=== PATIENT | female | born 1980 | race Caucasian/White ===

== ENCOUNTER 2016-12-22 19:29 | Emergency (ER) | payer SELFPAY ==
[~2016-12-22] VITALS: Ht 175.3 cm; Wt 86.0 kg
[~2016-12-22 19:29] MED LIST: HYDR-3533 PO; IBUP400 PO
[2016-12-22 19:33] VITALS: BP 132/81; PULSE 80; RESP 20; TEMP 98.2; O2SAT 100
--- NOTE | 2016-12-22 19:39 | PD ---
Physical Exam Time Seen by Provider: 19:34 Narrative 36yo F c/o RLQ and pain for weeks. Hx of endometrioses throughout abdomen. Hx of appendectomy and 12" bowel resection secondary to endometriosis. +N w/o vomiting. Has not had BM in 1 week. Jp fever. Hx of tubal ligation. Patient seen in triage. VS reviewed. Awaiting bed placement. MDM Supervised Visit with ABDOULAYE: Petra Nieto Dec 22, 2016 19:39
[2016-12-22] MEDS ORDERED: SODIUM CHLOR 0.9% 1000 ML INJ 1,000 ML IV SCH (20:14)
[2016-12-22] MEDS ORDERED: MORPHINE SULFATE 4 MG/ML INJ IV PUSH ONE ×2 (20:15→23:00)
[2016-12-22] MEDS ORDERED: SODIUM CHLORIDE 0.9% FLUSH 10 ML FLUSH IV FLUSH PRN (20:15)
[2016-12-22] MEDS ORDERED: ONDANSETRON HCL 4 MG/2 ML VIAL IVP ONE (20:15)
[2016-12-22] MEDS ORDERED: DIATRIZOATE MEGLUM/DIATRIZOATE SOD 9 ML CUP ONE (20:29)
--- NOTE | 2016-12-22 20:30 | PD ---
HPI Chief Complaint: Abdominal Pain Time Seen by Provider: 20:28 Travel History International Travel<30 days: No Contact w/Intl Traveler<30days: No Traveled to known affect area: No History of Present Illness HPI 36-year-old female with PMH of endometriosis, bowel resection, appendectomy, tubal ligation presents to the ED for evaluation of 1 week history of cramping abdominal pain. Abrupt onset, last in 3-5 seconds before spontaneously resolving. She endorses associated nausea. Patient reports reduced stool volume over the last week. She states she's passed several small, hard stools. No alleviating or exacerbating factors reported. She denies fever, chills, vomiting, melena or hematochezia. States last menstrual period approximately one week ago. Endorses "heavy flow" 5 days. Also complains of "metallic" vaginal odor. Denies dysuria or vaginal discharge. Also complains of dyspareunia x ~1 week. PFSH Past Medical History Bipolar Disorder: Yes Depression: Yes Diminished Hearing: No Reproductive: Yes (ENDOMETRIOSIS) Immunizations Current: Yes Tetanus Vaccination: > 5 Years ?: Not : 4 Para: 3 Miscarriage: 1 Tubal Ligation: Yes Past Surgical History Abdominal Surgery: Yes (BOWEL RESECTION) Appendectomy: Yes Section: Yes (X3) Social History Alcohol Use: No Tobacco Use: Yes (1PPD) Substance Use: No Allergies-Medications (Allergen,Severity, Reaction): Coded Allergies: Codeine (Verified Allergy, Severe, 12/22/16) "I GET REALLY HYPER" Penicillin (Verified Allergy, Severe, 12/22/16) "I GET REALLY HYPER" Phenergan (Verified Allergy, Severe, 12/22/16) "I GET REALLY HYPER" Reported Meds & Prescriptions Reported Meds & Active Scripts Active Metrogel Vaginal Gel (Metronidazole Vaginal Gel) 0.75 % Gel 1 Appl VAGINAL HS 5 Days Anaprox DS (Naproxen Sodium) 550 Mg Tab 550 Mg PO Q12HR PRN Review of Systems Except as stated in HPI: all other systems reviewed are Neg Physical Exam Narrative GENERAL: Well-nourished, well-developed obese white female in no acute distress. SKIN: Focused skin assessment warm/dry. HEAD: Normocephalic. EYES: No scleral icterus. No injection or drainage. NECK: Supple, trachea midline. No JVD or lymphadenopathy. CARDIOVASCULAR: Regular rate and rhythm without murmurs, gallops, or rubs. 2+ DP and radial pulses bilaterally. RESPIRATORY: Breath sounds clear and equal bilaterally. No accessory muscle use. GASTROINTESTINAL: Abdomen soft, nondistended. Tender to palpation in the right lower quadrant. Positive suprapubic tenderness. Hypoactive bowel sounds. GENITOURINARY: Normal external genitalia without lesions or erythema. Vaginal vault without blood. Scant amount of pale yellow drainage. Unable to visualize cervical os secondary to the patient's discomfort. No cervical motion tenderness. Uterus nontender and nonenlarged. Bilateral adnexa nontender without masses. Patient states vaginal exam worsens her abdominal pain. MUSCULOSKELETAL: No cyanosis, or edema. BACK: Nontender without obvious deformity. No CVA tenderness. Data Data Last Documented VS Vital Signs Date Time Temp Pulse Resp B/P Pulse Ox O2 Delivery O2 Flow Rate FiO2 12/23/16 00:08 99 Room Air 12/22/16 22:55 100 20 115/65 12/22/16 19:33 98.2 Orders Complete Blood Count With Diff (12/22/16 20:14) Comprehensive Metabolic Panel (12/22/16 20:14) Lipase (12/22/16 20:14) Lactic Acid (12/22/16 20:14) Prothrombin Time / Inr (Pt) (12/22/16 20:14) Act Partial Throm Time (Ptt) (12/22/16 20:14) Urinalysis - C+S If Indicated (12/22/16 20:14) Ct Abd/Pel W Iv Contrast(Rout) (12/22/16 20:14) Iv Access Insert/Monitor (12/22/16 20:14) Ecg Monitoring (12/22/16 20:14) Oximetry (12/22/16 20:14) NPO (12/22/16 20:14) Morphine Inj (Morphine Inj) (12/22/16 20:15) Ondansetron Inj (Zofran Inj) (12/22/16 20:15) Sodium Chlor 0.9% 1000 Ml Inj (Ns 1000 M (12/22/16 20:14) Sodium Chloride 0.9% Flush (Ns Flush) (12/22/16 20:15) Ed Urine Pregnancytest Poc (12/22/16 20:14) Oral Contrast - Adult (12/22/16 20:19) Gc And Chlamydia Pcr (12/22/16 20:22) Wet Prep Profile (12/22/16 20:22) Electrocardiogram (12/22/16 20:24) Diatrizoate Liq ( Gastroview Liq) (12/22/16 20:29) Iohexol 350 Inj (Omnipaque 350 Inj) (12/22/16 22:31) Morphine Inj (Morphine Inj) (12/22/16 23:00) Ketorolac Inj (Toradol Inj) (12/22/16 23:30) Mandatory Outpatient Referral (12/23/16 00:01) Labs Laboratory Tests Test 12/22/16 12/22/16 12/22/16 20:30 20:32 22:57 White Blood Count 14.9 TH/MM3 Red Blood Count 4.85 MIL/MM3 Hemoglobin 14.4 GM/DL Hematocrit 43.4 % Mean Corpuscular Volume 89.4 FL Mean Corpuscular Hemoglobin 29.6 PG Mean Corpuscular Hemoglobin 33.1 % Concent Red Cell Distribution Width 13.0 % Platelet Count 314 TH/MM3 Mean Platelet Volume 7.5 FL Neutrophils (%) (Auto) 63.0 % Lymphocytes (%) (Auto) 28.8 % Monocytes (%) (Auto) 6.3 % Eosinophils (%) (Auto) 1.4 % Basophils (%) (Auto) 0.5 % Neutrophils # (Auto) 9.4 TH/MM3 Lymphocytes # (Auto) 4.3 TH/MM3 Monocytes # (Auto) 0.9 TH/MM3 Eosinophils # (Auto) 0.2 TH/MM3 Basophils # (Auto) 0.1 TH/MM3 CBC Comment DIFF FINAL Differential Comment Prothrombin Time 10.8 SEC Prothromb Time International 1.0 RATIO Ratio Activated Partial 34.8 SEC Thromboplast Time Urine Color YELLOW Urine Turbidity CLEAR Urine pH 6.5 Urine Specific [place] 1.022 Urine Protein NEG mg/dL Urine Glucose (UA) NEG mg/dL Urine Ketones NEG mg/dL Urine Occult Blood NEG Urine Nitrite NEG Urine Bilirubin NEG Urine Urobilinogen LESS THAN 2.0 MG/DL Urine Leukocyte Esterase NEG Urine RBC LESS THAN 1 /hpf Urine WBC 1 /hpf Urine Squamous Epithelial 5 /hpf Cells Urine Mucus FEW /lpf Microscopic Urinalysis Comment CULT NOT INDICATED Sodium Level 137 MEQ/L Potassium Level 3.9 MEQ/L Chloride Level 104 MEQ/L Carbon Dioxide Level 25.2 MEQ/L Anion Gap 8 MEQ/L Blood Urea Nitrogen 15 MG/DL Creatinine 0.95 MG/DL Estimat Glomerular Filtration 67 ML/MIN Rate Random Glucose 79 MG/DL Calcium Level 9.2 MG/DL Total Bilirubin 0.2 MG/DL Aspartate Amino Transf 23 U/L (AST/SGOT) Alanine Aminotransferase 32 U/L (ALT/SGPT) Alkaline Phosphatase 81 U/L Total Protein 7.6 GM/DL Albumin 4.1 GM/DL Lipase 127 U/L Lactic Acid Level 1.0 mmol/L Clue Cells (Wet Prep) PRESENT Vaginal Trichomonas (Wet Prep) NONE SEEN Vaginal Yeast (Wet Prep) NONE SEEN Chlamydia trachomatis DNA NOT DETECTED (PCR) Neisseria gonorrhoeae DNA NOT DETECTED (PCR) MDM Medical Decision Making Medical Screen Exam Complete: Yes Emergency Medical Condition: Yes Differential Diagnosis Acute on chronic abdominal pain versus ventral hernia versus bowel obstruction versus dysmenorrhea versus versus ectopic versus UTI versus STI versus other Narrative Course 36-year-old female with PMH of endometriosis, bowel resection, appendectomy, tubal ligation presents to the ED for evaluation of 1 week history of cramping abdominal pain. Abrupt onset, last in 3-5 seconds before spontaneously resolving. She endorses associated nausea, reduced stool volume over the last week. She states she's passed several small, hard stools. No alleviating or exacerbating factors reported. She denies fever, chills, vomiting, melena or hematochezia. LMP ~ one week ago. Endorses "heavy flow" 5 days. Also complains of "metallic" vaginal odor. Denies dysuria or vaginal discharge. Also complains of dyspareunia x ~1 week. Patient afebrile on presentation. Physical exam reveals a nontoxic-appearing white female in no acute distress. Abdominal exam reveals tenderness to palpation in the RLQ and suprapubic region. No CVA tenderness. Scant pale yellow fluid in the vaginal vault. For evaluation of cervical motion tenderness or adnexal tenderness secondary to worsening abdominal pain during pelvic exam. Patient was administered a liter normal saline, 4 mg morphine, 4 mg Zofran IV. CBC: WBC 14.9, hemoglobin 14.4. Coags: INR 1.0. Chemistry: Unremarkable. Lactic acid 1.0. UA: No culture indicated. UPT: negative CT the abdomen and pelvis: No source for the patient's abdominal pain is identified per radiology read. Wet prep and GC chlamydia pending. Discharge per Dr. Gonzales. Scripts Metronidazole Vaginal Gel (Metrogel Vaginal Gel)0.75 % Gel1 Appl VAGINAL HS 5 Days Ref 0 Prov:Mariely Gonzales MD 12/23/16 Naproxen Sodium DS (Anaprox DS)550 Mg [id number] Mg PO Q12HR PRN (PAIN GREATER THAN 5) #12 TAB Ref 0 Prov:Mariely Gonzales MD 12/23/16 Alexandra Bae Dec 22, 2016 20:30
[2016-12-22 20:55] LABS: AUTOMATED NEUTROPHIL # 9.4 TH/MM3 (1.8-7.7); BASOPHIL # 0.1 TH/MM3 (0-0.2); BASOPHIL % 0.5 % (0.0-2.0); EOSINOPHIL # 0.2 TH/MM3 (0-0.4); EOSINOPHIL % 1.4 % (0.0-4.0); HEMATOCRIT 43.4 % (35.0-46.0); HEMO FLAGS DIFF FINAL; LYMPH % 28.8 % (9.0-44.0); LYMPHOCYTE # 4.3 TH/MM3 (1.0-4.8); MEAN CELL VOLUME 89.4 FL (80.0-100.0); MEAN CORPUSCULAR HEMOGLOBIN 29.6 PG (27.0-34.0); MEAN CORPUSCULAR HGB CONC 33.1 % (32.0-36.0); MONO % 6.3 % (0.0-8.0); PLATELET COUNT 314 TH/MM3 (150-450); RED BLOOD COUNT 4.85 MIL/MM3 (4.00-5.30); WHITE BLOOD COUNT 14.9 TH/MM3 (4.0-11.0)
[2016-12-22 21:08] LABS: BLOOD, URINE NEG (NEG); COMMENT (UR) CULT NOT INDICATED; CULTURE IF INDICATED CULT NOT INDICATED; GLUCOSE,URINE NEG (NEG); KETONE, URINE NEG (NEG); MUCUS URINE FEW /lpf (OCC); NITRITE,URINE NEG (NEG); PH, URINE 6.5 (5.0-8.5); SQUAMOUS EPITHELIAL CELL URINE 5 /hpf (0-5); URINE COLOR YELLOW (YELLW/STRAW)
[2016-12-22 21:12] LABS: ALT (GPT) 32 U/L (10-53); APTT (PATIENT) 34.8 SEC (24.3-30.1); PROTHROMBIN TIME - PATIENT 10.8 SEC (9.8-11.6)
[2016-12-22 21:14] LABS: ALKALINE PHOSPHATASE 81 U/L (45-117); TOTAL BILIRUBIN ADULT 0.2 MG/DL (0.2-1.0)
[2016-12-22 21:20] LABS: ANION GAP 8 MEQ/L (5-15); AST (GOT) 23 U/L (15-37); BICARBONATE 25.2 MEQ/L (21.0-32.0); BLOOD UREA NITROGEN 15 MG/DL (7-18); CHLORIDE 104 MEQ/L (98-107); GLOMERULAR FILTRATION RATE 67 ML/MIN (>89); POTASSIUM 3.9 MEQ/L (3.5-5.1); SODIUM (NA) 137 MEQ/L (136-145)
[2016-12-22] MEDS ORDERED: IOHEXOL 350 MG/ML 10 ML VIAL (for RAD DIAG) IV ONE (22:31)
--- NOTE | 2016-12-22 22:46 | RADRPT ---
EXAM DATE/TIME: 12/22/2016 22:01 [facility] COMPARISON: CT ABDOMEN & PELVIS W CONTRAST, February 07, 2015, 23:29. INDICATIONS : Right lower quadrant pain and nausea. IV CONTRAST: 90 cc Omnipaque 350 (iohexol) IV ORAL CONTRAST: Prescribed oral contrast ingested. RADIATION DOSE: 10.45 CTDIvol (mGy) MEDICAL HISTORY : Endometriosis. SURGICAL HISTORY : Appendectomy. Tubal ligation. section.Bowel resection. ENCOUNTER: Initial ACUITY: 1 week PAIN SCALE: 10/10 LOCATION: Right lower quadrant TECHNIQUE: Volumetric scanning of the abdomen and pelvis was performed. Using automated exposure control and ad justment of the mA and/or kV according to patient size, radiation dose was kept as low as reasonably achievable to obtain optimal diagnostic quality images. FINDINGS: LOWER LUNGS: The visualized lower lungs are clear. LIVER: Homogeneous density without lesion. There is no dilation of the biliary tree. No calcified gallston es. SPLEEN: Normal size without lesion. PANCREAS: Within normal limits. KIDNEYS: Normal in size and shape. There is no mass, stone or hydronephrosis. ADRENAL GLANDS: Within normal limits. VASCULAR: There is no aortic aneurysm. BOWEL/MESENTERY: The stomach, small bowel, and colon demonstrate no acute abnormality. There is no free intraperitone al air or fluid. Surgical clips associated with the cecum. ABDOMINAL WALL: Within normal limits. RETROPERITONEUM: There is no lymphadenopathy. BLADDER: No wall thickening or mass. REPRODUCTIVE: Within normal limits. INGUINAL: There is no lymphadenopathy or hernia. MUSCULOSKELETAL: Within normal limits for patient age. CONCLUSION: 1. No acute abnormality to explain the patient's pain. Hermelindo Lin Jr., MD on December 22, 2016 at 22:42 Board Certified Radiologist. This report was verified electronically.
[2016-12-22 22:55] VITALS: BP 115/65; PULSE 100; RESP 20; O2SAT 100
[2016-12-22] MEDS ORDERED: KETOROLAC TROMETHAMINE 30 MG/ML (IVP) VIAL IV PUSH ONE (23:30)
[2016-12-22] MEDS ORDERED: DOXYCYCLINE HYCLATE 100 MG CAP PO ONE (23:30)
[2016-12-23] MEDS ORDERED: NAPR550 PO
[2016-12-23] MEDS ORDERED: METR0.7528 VAGINAL
--- NOTE | 2016-12-23 00:01 | PD ---
Physical Exam Date Seen by Provider: Dec 22, 2016 Time Seen by Provider: 23:10 Narrative GENERAL: GASTROINTESTINAL: Abdomen soft, mild diffuse tenderness however patient with marked response to palpation to the right lower abdomen without reproducible tenderness rebound or guarding, nondistended. Data Data Last Documented VS Vital Signs Date Time Temp Pulse Resp B/P Pulse Ox O2 Delivery O2 Flow Rate FiO2 12/23/16 00:08 99 Room Air 12/22/16 22:55 100 20 115/65 12/22/16 19:33 98.2 Orders Complete Blood Count With Diff (12/22/16 20:14) Comprehensive Metabolic Panel (12/22/16 20:14) Lipase (12/22/16 20:14) Lactic Acid (12/22/16 20:14) Prothrombin Time / Inr (Pt) (12/22/16 20:14) Act Partial Throm Time (Ptt) (12/22/16 20:14) Urinalysis - C+S If Indicated (12/22/16 20:14) Ct Abd/Pel W Iv Contrast(Rout) (12/22/16 20:14) Iv Access Insert/Monitor (12/22/16 20:14) Ecg Monitoring (12/22/16 20:14) Oximetry (12/22/16 20:14) NPO (12/22/16 20:14) Morphine Inj (Morphine Inj) (12/22/16 20:15) Ondansetron Inj (Zofran Inj) (12/22/16 20:15) Sodium Chlor 0.9% 1000 Ml Inj (Ns 1000 M (12/22/16 20:14) Sodium Chloride 0.9% Flush (Ns Flush) (12/22/16 20:15) Ed Urine Pregnancytest Poc (12/22/16 20:14) Oral Contrast - Adult (12/22/16 20:19) Gc And Chlamydia Pcr (12/22/16 20:22) Wet Prep Profile (12/22/16 20:22) Electrocardiogram (12/22/16 20:24) Diatrizoate Liq ( Gastroview Liq) (12/22/16 20:29) Iohexol 350 Inj (Omnipaque 350 Inj) (12/22/16 22:31) Morphine Inj (Morphine Inj) (12/22/16 23:00) Ketorolac Inj (Toradol Inj) (12/22/16 23:30) Mandatory Outpatient Referral (12/23/16 00:01) Labs Laboratory Tests Test 12/22/16 12/22/16 12/22/16 20:30 20:32 22:57 White Blood Count 14.9 TH/MM3 Red Blood Count 4.85 MIL/MM3 Hemoglobin 14.4 GM/DL Hematocrit 43.4 % Mean Corpuscular Volume 89.4 FL Mean Corpuscular Hemoglobin 29.6 PG Mean Corpuscular Hemoglobin 33.1 % Concent Red Cell Distribution Width 13.0 % Platelet Count 314 TH/MM3 Mean Platelet Volume 7.5 FL Neutrophils (%) (Auto) 63.0 % Lymphocytes (%) (Auto) 28.8 % Monocytes (%) (Auto) 6.3 % Eosinophils (%) (Auto) 1.4 % Basophils (%) (Auto) 0.5 % Neutrophils # (Auto) 9.4 TH/MM3 Lymphocytes # (Auto) 4.3 TH/MM3 Monocytes # (Auto) 0.9 TH/MM3 Eosinophils # (Auto) 0.2 TH/MM3 Basophils # (Auto) 0.1 TH/MM3 CBC Comment DIFF FINAL Differential Comment Prothrombin Time 10.8 SEC Prothromb Time International 1.0 RATIO Ratio Activated Partial 34.8 SEC Thromboplast Time Urine Color YELLOW Urine Turbidity CLEAR Urine pH 6.5 Urine Specific [place] 1.022 Urine Protein NEG mg/dL Urine Glucose (UA) NEG mg/dL Urine Ketones NEG mg/dL Urine Occult Blood NEG Urine Nitrite NEG Urine Bilirubin NEG Urine Urobilinogen LESS THAN 2.0 MG/DL Urine Leukocyte Esterase NEG Urine RBC LESS THAN 1 /hpf Urine WBC 1 /hpf Urine Squamous Epithelial 5 /hpf Cells Urine Mucus FEW /lpf Microscopic Urinalysis Comment CULT NOT INDICATED Sodium Level 137 MEQ/L Potassium Level 3.9 MEQ/L Chloride Level 104 MEQ/L Carbon Dioxide Level 25.2 MEQ/L Anion Gap 8 MEQ/L Blood Urea Nitrogen 15 MG/DL Creatinine 0.95 MG/DL Estimat Glomerular Filtration 67 ML/MIN Rate Random Glucose 79 MG/DL Calcium Level 9.2 MG/DL Total Bilirubin 0.2 MG/DL Aspartate Amino Transf 23 U/L (AST/SGOT) Alanine Aminotransferase 32 U/L (ALT/SGPT) Alkaline Phosphatase 81 U/L Total Protein 7.6 GM/DL Albumin 4.1 GM/DL Lipase 127 U/L Lactic Acid Level 1.0 mmol/L Clue Cells (Wet Prep) PRESENT Vaginal Trichomonas (Wet Prep) NONE SEEN Vaginal Yeast (Wet Prep) NONE SEEN MDM Medical Record Reviewed: Yes Supervised Visit with ABDOULAYE: Yes Differential Diagnosis Abdominal pain, endometriosis, UTI, ectopic , ovarian torsion, chronic pain syndrome Narrative Course I, Dr. Gonzales, have reviewed the advance practice practitioner's documentation and am in agreement, met with the patient face to face, made the diagnosis, and the medical decision making was done by me. 36-year-old female with chronic pain localized to right lower quadrant and abdominal wall 2 years and presents for ongoing pain that has not changed in location or intensity without fever chills dysuria diarrhea vaginal discharge or vaginal bleeding. Patient's point of care test is negative CT abdomen and pelvis reveals no acute abnormality lab values are otherwise normal except for mild cytosis consistent with stress demargination and dehydration. Patient administered Toradol 30 mg IV and morphine sulfate and IV fluids. Patient is clinically improved and stable for outpatient management. *My assessment and Findings: Abdominal pain; endometriosis Diagnosis Primary Impression: Abdominal pain Additional Impression: Endometriosis Referrals: [employer] Consultant call for appointment Patient Instructions: Narcotic given in the ED, General Instructions Additional Instruction: Increase fluid hydration Take medication as prescribed as needed Follow-up with teaching pastor Follows with [facility] Return to the emergency department for a concerns or change in condition Take acetaminophen/Tylenol as tolerated for fever 100.4F or greater or for minor pain Med/Other Pt SpecificInfo: Prescription(s) given Scripts Metronidazole Vaginal Gel (Metrogel Vaginal Gel)0.75 % Gel1 Appl VAGINAL HS 5 Days Ref 0 Prov:Mariely Gonzales MD 12/23/16 Naproxen Sodium DS (Anaprox DS)550 Mg [id number] Mg PO Q12HR PRN (PAIN GREATER THAN 5) #12 TAB Ref 0 Prov:Mariely Gonzales MD 12/23/16 Disposition: 01 DISCHARGE HOME Condition: Stable Mariely Gonzales MD Dec 23, 2016 00:01
[2016-12-23 00:08] VITALS: O2SAT 99
[2016-12-23 02:08] LABS: CHLAMYDIA PCR NOT DETECTED (NOT DETECT); NEISSERIA PCR NOT DETECTED (NOT DETECT)
--- NOTE | 2016-12-23 12:23 | EKG ---
Date Performed: 12/22/2016 Time Performed: 19:55:10 PTAGE: 36 years EKG: Sinus rhythm NORMAL ECG Compared to prior tracing no significant change PREVIOUS TRACING 08/16/2014 23.03.00 DOCTOR: Chicho Maria Interpretating Date/Time 12/23/2016 12:20:33
== END 2016-12-23 01:02 | disposition home or self-care (01) ==
LOC: NEPC 19:29
DX: R10.31 Right lower quadrant pain (principal); N80.9 Endometriosis, unspecified; R11.0 Nausea; N94.10 Unspecified dyspareunia; F17.200 Nicotine dependence, unspecified, uncomplicated; Z87.42 Personal history of other diseases of the female genital tract; Z87.19 Personal history of other diseases of the digestive system; Z86.59 Personal history of other mental and behavioral disorders
CPT/HCPCS: 74177; 80053; 81001; 83605; 83690; 84703; 85025; 85610; 85730; 87210; 87491; 87591; 93005; 96361; 96374; 96375; 96376; 99285; J1885; J2270; J2405; J7030; Q9963; Q9967

== ENCOUNTER 2017-05-23 16:56 | Emergency (ER) | payer SELFPAY ==
[~2017-05-23] VITALS: Ht 175.3 cm; Wt 86.0 kg
[~2017-05-23 16:56] MED LIST changes: -HYDR-3533 PO; -IBUP400 PO; +METR0.7528 VAGINAL; +NAPR5TAB5 PO
[2017-05-23 16:58] VITALS: BP 124/67; PULSE 119; RESP 20; TEMP 97.7; O2SAT 98
--- NOTE | 2017-05-23 17:38 | PD ---
Physical Exam Date Seen by Provider: May 23, 2017 Time Seen by Provider: 17:34 Narrative 37-year-old white female presents to emergency department complaining of fever and chills subjectively along with sore throat, myalgias, arthralgias or general malaise. This started sometime on . On Monday the patient was noted has become white patches. No nausea vomiting. No abdominal pain or urinary symptoms. Vital signs reviewed. Pt waiting for bed placement. Data Data Last Documented VS Vital Signs Date Time Temp Pulse Resp B/P (MAP) Pulse Ox O2 Delivery O2 Flow Rate FiO2 05/23/17 16:58 97.7 119 20 124/67 (86) 98 Room Air [facility] Medical Record Reviewed: No Supervised Visit with ABDOULAYE: Steven Pino May 23, 2017 17:38
== END 2017-05-23 19:10 | disposition left against medical advice (07) ==
LOC: NETRI 16:56
DX: R50.9 Fever, unspecified (principal)
CPT/HCPCS: 99281

== ENCOUNTER 2017-05-24 20:29 | Inpatient (IN) | payer SELFPAY ==
[~2017-05-24] VITALS: Ht 175.3 cm; Wt 87.0 kg
[2017-05-24 20:32] VITALS: BP 117/69; PULSE 131; RESP 16; TEMP 98.1; O2SAT 99
[2017-05-24] MEDS ORDERED: SODIUM CHLORIDE 0.9% FLUSH 10 ML FLUSH IV FLUSH PRN (21:45)
[2017-05-24] MEDS ORDERED: SODIUM CHLOR 0.9% 1000 ML INJ 1,000 ML IV ONE ×2 (21:45→22:45)
--- NOTE | 2017-05-24 21:52 | PD ---
HPI Chief Complaint: Abdominal Pain Time Seen by Provider: 21:34 Travel History International Travel<30 days: No Contact w/Intl Traveler<30days: No Traveled to known affect area: No History of Present Illness HPI 37yo F with PMH of endometriosis here with multiple complaints. States it started with throat pain, cough and nasal congestion 4 days ago and now she has epigastric abdominal pain, midsternal chest pain that is worst with coughing. Also with nausea, NBNB vomiting. Denies any sob, focal weakness or numbness. PFSH Past Medical History Bipolar Disorder: Yes Depression: Yes Diminished Hearing: No Neurologic: Yes (HX SPINAL MENINGITIS) Reproductive: Yes (ENDOMETRIOSIS) Immunizations Current: Yes Tetanus Vaccination: Unknown ?: Not : 4 Para: 3 Miscarriage: 1 Tubal Ligation: Yes Past Surgical History Abdominal Surgery: Yes (BOWEL RESECTION) Appendectomy: Yes Section: Yes (X3) Social History Alcohol Use: No Tobacco Use: Yes (1PPD) Substance Use: No Allergies-Medications (Allergen,Severity, Reaction): Coded Allergies: codeine (Unverified Allergy, Severe, 05/23/17) "I GET REALLY HYPER" penicillin G (Unverified Allergy, Severe, 05/23/17) "I GET REALLY HYPER" promethazine (Unverified Allergy, Severe, 05/23/17) "I GET REALLY HYPER" Reported Meds & Prescriptions Reported Meds & Active Scripts Active Metrogel Vaginal Gel (Metronidazole Vaginal Gel) 0.75 % Gel 1 Appl VAGINAL HS 5 Days Anaprox DS (Naproxen Sodium) 550 Mg Tab 550 Mg PO Q12HR PRN Review of Systems Except as stated in HPI: all other systems reviewed are Neg Physical Exam Narrative GENERAL: 37yo F SKIN: Focused skin assessment warm/dry. HEAD: Atraumatic. Normocephalic. EYES: Pupils equal and round. No scleral icterus. No injection or drainage. ENT: No nasal bleeding or discharge. Mucous membranes pink and moist. NECK: Trachea midline. No JVD. CARDIOVASCULAR: Regular rate and rhythm. No murmur appreciated. RESPIRATORY: No accessory muscle use. Clear to auscultation. Breath sounds equal bilaterally. GASTROINTESTINAL: Abdomen soft, non-tender, nondistended. Hepatic and splenic margins not palpable. MUSCULOSKELETAL: No obvious deformities. No clubbing. No cyanosis. No edema. NEUROLOGICAL: Awake and alert. No obvious cranial nerve deficits. Motor grossly within normal limits. Normal speech. PSYCHIATRIC: Appropriate mood and affect; insight and judgment normal. Data Data Last Documented VS Vital Signs Date Time Temp Pulse Resp B/P (MAP) Pulse Ox O2 Delivery O2 Flow Rate FiO2 05/24/17 20:32 98.1 131 16 117/69 (85) 99 Room Air Orders Orders Basic Metabolic Panel (Bmp) (05/24/17 21:45) Complete Blood Count With Diff (05/24/17 21:45) Lipase (05/24/17 21:45) Lactic Acid (05/24/17 21:45) Prothrombin Time / Inr (Pt) (05/24/17 21:45) Act Partial Throm Time (Ptt) (05/24/17 21:45) Urinalysis - C+S If Indicated (05/24/17 21:45) Ct Abd/Pel W Iv Contrast(Rout) (05/24/17 21:45) Iv Access Insert/Monitor (05/24/17 21:45) Ecg Monitoring (05/24/17 21:45) Oximetry (05/24/17 21:45) Sodium Chloride 0.9% Flush (Ns Flush) (05/24/17 21:45) Electrocardiogram (05/24/17 21:45) Ed Urine Pregnancytest Poc (05/24/17 21:45) Hepatic Functional Panel (05/24/17 21:45) Sodium Chlor 0.9% 1000 Ml Inj (Ns 1000 M (05/24/17 21:45) Chest, Single Ap (05/24/17 ) Troponin I (05/24/17 21:45) Influenzae A/B Antigen (05/24/17 21:45) Group A Rapid Strep Screen (05/24/17 21:45) Morphine Inj (Morphine Inj) (05/24/17 22:00) Ondansetron Inj (Zofran Inj) (05/24/17 22:00) Strep Culture (Group A) (05/24/17 22:07) Blood Culture (05/24/17 22:43) Sodium Chlor 0.9% 1000 Ml Inj (Ns 1000 M (05/24/17 22:45) Iohexol 350 Inj (Omnipaque 350 Inj) (05/24/17 23:29) Vancomycin Inj (Vancomycin Inj) (05/25/17 00:00) Aztreonam Inj (Azactam Inj) (05/25/17 00:00) Us Abdomen Gallbladder (05/25/17 ) Consult General Surgery (05/25/17 ) Consult Gastroenterology (05/25/17 ) Morphine Inj (Morphine Inj) (05/25/17 00:15) Admit Order (Ed Use Only) (05/25/17 00:23) Labs Laboratory Tests Test 05/24/17 22:03 White Blood Count 43.3 TH/MM3 Red Blood Count 3.66 MIL/MM3 Hemoglobin 11.5 GM/DL Hematocrit 33.1 % Mean Corpuscular Volume 90.4 FL Mean Corpuscular Hemoglobin 31.3 PG Mean Corpuscular Hemoglobin Concent 34.6 % Red Cell Distribution Width 13.6 % Platelet Count 376 TH/MM3 Mean Platelet Volume 6.7 FL Neutrophils (%) (Auto) 89.3 % Lymphocytes (%) (Auto) 4.8 % Monocytes (%) (Auto) 5.3 % Eosinophils (%) (Auto) 0.5 % Basophils (%) (Auto) 0.1 % Neutrophils # (Auto) 38.6 TH/MM3 Lymphocytes # (Auto) 2.1 TH/MM3 Monocytes # (Auto) 2.3 TH/MM3 Eosinophils # (Auto) 0.2 TH/MM3 Basophils # (Auto) 0.1 TH/MM3 CBC Comment AUTO DIFF Differential Total Cells Counted 100 Neutrophils % (Manual) 81 % Band Neutrophils % 9 % Lymphocytes % 5 % Monocytes % 5 % Neutrophils # (Manual) 39.0 TH/MM3 Differential Comment FINAL DIFF MANUAL Toxic Granulation 1+ Toxic Vacuolation PRESENT Dohle Bodies PRESENT Platelet Estimate NORMAL Platelet Morphology Comment NORMAL Red Cell Morphology Comment NORMAL Prothrombin Time 12.3 SEC Prothromb Time International Ratio 1.1 RATIO Activated Partial Thromboplast Time 37.0 SEC Blood Urea Nitrogen 16 MG/DL Creatinine 1.82 MG/DL Random Glucose 61 MG/DL Total Protein 7.6 GM/DL Albumin 2.4 GM/DL Calcium Level 8.8 MG/DL Alkaline Phosphatase 264 U/L Aspartate Amino Transf (AST/SGOT) 26 U/L Alanine Aminotransferase (ALT/SGPT) 29 U/L Total Bilirubin 2.0 MG/DL Direct Bilirubin 1.3 MG/DL Sodium Level 138 MEQ/L Potassium Level 4.0 MEQ/L Chloride Level 100 MEQ/L Carbon Dioxide Level 24.8 MEQ/L Anion Gap 13 MEQ/L Estimat Glomerular Filtration Rate 32 ML/MIN Lactic Acid Level 1.6 mmol/L Indirect Bilirubin 0.7 MG/DL Troponin I LESS THAN 0.02 NG/ML Lipase 34 U/L [facility] Medical Decision Making Medical Screen Exam Complete: Yes Emergency Medical Condition: Yes Interpretation(s) EKG: Sinus tachycardia at 121bpm. Normal axis. TWI III. Differential Diagnosis Colitis vs. influenza vs. hepatitis vs. cholecystitis vs. pancreatitis vs. cholangitis vs. pyelonephritis Narrative Course 37yo F with multiple complaints. Influenza negative. Group A strep negative. Labs reviewed, marked leukocytosis at 43.3. It was 14.9 on 12/2016. Lactic acid normal. Creatinine is elevated at 1.82 which is increased from 0.95 on 12/22. Troponin negative. Alk phos is elevated at 264. Pt was initially tachycardic at 131. No fever. Pt given NS IVF x2. However, pt does meet SIRS criteria so will empirically cover with antibiotics, draw blood cultures. CXR negative. CT a/p showed hepatosplenomegaly with mild periportal edema and gallbladder wall thickening, these are new since previous exam. Appearance of right kidney worrisome for pyelonephritis. UA is still pending. Urine negative. I discussed with Dr. Moreno from general surgery and he recommend US gallbladder. I discussed with hospitalist Dr. Crow and accepted to her service. Also placed consult for GI and surgery. Critical Care Narrative Aggregate critical care time was 50 minutes. Time to perform other separately billable procedures was not included in the critical care time. My time did not include minutes spent treating any other patients simultaneously or on activities that did not directly contribute to the patient's treatment. The services I provided to this patient were to treat and/or prevent clinically significant deterioration that could result in: cardiovascular collapse or . I provided critical care services requiring my management, as noted below: Chart data review, documentation time, medication orders and management, vital sign assessments/reviewing monitor data, ordering and reviewing lab tests, ordering and interpreting/reviewing x-rays and diagnostic studies, care of the patient and discussion of the patient with the admitting physicians. Sepsis Criteria SIRS Criteria (2 or more): Heart rate over 90, WBC > 13696, < 4000 or > 10% bands Sepsis Criteria (SIRS+source): Infect source susp/known Diagnosis Primary Impression: Abdominal pain Qualified Codes: R10.13 - Epigastric pain Admitting Information Admitting Physician Requests: Ramonita Grande DO May 24, 2017 21:52
[2017-05-24] MEDS ORDERED: MORPHINE SULFATE 8 MG/ML INJ IV PUSH ONE (22:00)
[2017-05-24] MEDS ORDERED: ONDANSETRON HCL 4 MG/2 ML VIAL IV PUSH ONE (22:00)
--- NOTE | 2017-05-24 22:23 | RADRPT ---
EXAM DATE/TIME: 05/24/2017 22:05 [facility] COMPARISON: No previous studies available for comparison. INDICATIONS : Cough. MEDICAL HISTORY : Endometriosis. SURGICAL HISTORY : Appendectomy. Tubal ligation. section. Bowel resection. ENCOUNTER: Initial ACUITY: 1 day PAIN SCORE: 0/10 LOCATION: Bilateral chest FINDINGS: A single view of the chest demonstrates the lungs to be symmetrically aerated without evidence of mas s, infiltrate or effusion. The cardiomediastinal contours are unremarkable. Osseous structures are intact. CONCLUSION: No acute disease. There is no evidence of pneumonia. Bonilla Domínguez MD on May 24, 2017 at 22:21 Board Certified Radiologist. This report was verified electronically.
[2017-05-24 22:30] LABS: AUTOMATED NEUTROPHIL # 38.6 TH/MM3 (1.8-7.7); BASOPHIL # 0.1 TH/MM3 (0-0.2); BASOPHIL % 0.1 % (0.0-2.0); EOSINOPHIL # 0.2 TH/MM3 (0-0.4); EOSINOPHIL % 0.5 % (0.0-4.0); HEMATOCRIT 33.1 % (35.0-46.0); HEMOGLOBIN 11.5 GM/DL (11.6-15.3); LYMPH % 4.8 % (9.0-44.0); LYMPHOCYTE # 2.1 TH/MM3 (1.0-4.8); MEAN CELL VOLUME 90.4 FL (80.0-100.0); MEAN CORPUSCULAR HEMOGLOBIN 31.3 PG (27.0-34.0); MEAN CORPUSCULAR HGB CONC 34.6 % (32.0-36.0); MEAN PLATELET VOLUME 6.7 FL (7.0-11.0); MONO % 5.3 % (0.0-8.0); MONOCYTE # 2.3 TH/MM3 (0-0.9); NEUT % 89.3 % (16.0-70.0); PLATELET COUNT 376 TH/MM3 (150-450); RED BLOOD COUNT 3.66 MIL/MM3 (4.00-5.30); RED CELL DISTRIBUTION WIDTH 13.6 % (11.6-17.2); WHITE BLOOD COUNT 43.3 TH/MM3 (4.0-11.0)
[2017-05-24 22:39] LABS: INTERNATIONAL NORMALIZED RATIO 1.1 RATIO; PROTHROMBIN TIME - PATIENT 12.3 SEC (9.8-11.6)
[2017-05-24 23:06] LABS: BANDS 9 % (0-6); LYMPHOCYTES 5 % (9-44); MONOCYTES 5 % (0-8); POLYS (SEG NEUTROPHILS) 81 % (16-70)
[2017-05-24 23:08] LABS: DOHLE BODIES PRESENT (NONE SEEN); TOXIC GRANULATION 1+ (NORMAL); TOXIC VACUOLATION PRESENT (NONE SEEN)
[2017-05-24 23:13] LABS: ALKALINE PHOSPHATASE 264 U/L (45-117); TOTAL PROTEIN 7.6 GM/DL (6.4-8.2); TROPONIN I LESS THAN 0.02 NG/ML (0.02-0.05)
[2017-05-24 23:16] LABS: ALBUMIN 2.4 GM/DL (3.4-5.0); ALT (GPT) 29 U/L (10-53); AST (GOT) 26 U/L (15-37); BICARBONATE 24.8 MEQ/L (21.0-32.0); BLOOD UREA NITROGEN 16 MG/DL (7-18); CALCIUM 8.8 MG/DL (8.5-10.1); CHLORIDE 100 MEQ/L (98-107); CREATININE 1.82 MG/DL (0.50-1.00); DIRECT BILIRUBIN ADULT 1.3 MG/DL (0.0-0.2); GLOMERULAR FILTRATION RATE 32 ML/MIN (>89); GLUCOSE,RANDOM 61 MG/DL (74-106); INDIRECT BILIRUBIN 0.7 MG/DL (0.0-0.8); LIPASE 34 U/L (73-393); SODIUM (NA) 138 MEQ/L (136-145)
[2017-05-24] MEDS ORDERED: IOHEXOL 350 MG/ML 10 ML VIAL (for RAD DIAG) IVCONTRAST ONE (23:29)
--- NOTE | 2017-05-24 23:53 | RADRPT ---
EXAM DATE/TIME: 05/24/2017 23:24 [facility] COMPARISON: CT ABDOMEN & PELVIS W CONTRAST, December 22, 2016, 22:01. INDICATIONS : Epigastric and right upper quadrant pain. IV CONTRAST: 96 cc Omnipaque 350 (iohexol) IV ORAL CONTRAST: No oral contrast ingested. RADIATION DOSE: 12.48 CTDIvol (mGy) MEDICAL HISTORY : None SURGICAL HISTORY : Tubal ligation. Appendectomy.Colon resection. ENCOUNTER: Initial ACUITY: 2 days PAIN SCALE: 5/10 LOCATION: Right upper quadrant TECHNIQUE: Volumetric scanning of the abdomen and pelvis was performed. Using automated exposure control and ad justment of the mA and/or kV according to patient size, radiation dose was kept as low as reasonably achievable to obtain optimal diagnostic quality images. DICOM format image data is available electro nically for review and comparison. FINDINGS: LOWER LUNGS: Mild atelectasis in the posterior lung bases bilaterally. LIVER: Diffusely enlarged with mild periportal edema present. Mild gallbladder wall thickening. SPLEEN: Mildly enlarged. PANCREAS: Within normal limits. KIDNEYS: The right kidney is notable for mildly diminished diffuse enhancement with small multifocal areas of peripheral cortical hypodensity involving upper mid and lower pole regions. The appearance would be m ost consistent with pyelonephritis. No evidence of hydronephrosis. Contralateral left kidney is xander l in appearance. ADRENAL GLANDS: Within normal limits. VASCULAR: There is no aortic aneurysm. BOWEL/MESENTERY: The stomach, small bowel, and colon demonstrate no acute abnormality. There is no free intraperitone al air or fluid. ABDOMINAL WALL: Small periumbilical hernia containing a knuckle of bowel. No evidence of incarceration or obstruction RETROPERITONEUM: There is no lymphadenopathy. BLADDER: No wall thickening or mass. REPRODUCTIVE: Slightly greater than 4 cm right ovarian cyst. No free pelvic fluid. INGUINAL: There is no lymphadenopathy or hernia. MUSCULOSKELETAL: Within normal limits for patient age. CONCLUSION: Hepatosplenomegaly with mild periportal edema and gallbladder wall thickening, these findings new sin ce previous exam. Appearance of the right kidney worrisome for pyelonephritis. Right ovarian cyst Tyrel Norris MD on May 24, 2017 at 23:41 Board Certified Radiologist. This report was verified electronically.
[2017-05-25] VITALS (14 sets, daily range): BP systolic 103–115; BP diastolic 55–62; PULSE 102–135; RESP 16–36; TEMP 96.4–101.7; O2SAT 93–99
[2017-05-25] MEDS ORDERED: AZTREONAM INJ 2,000 MG in SODIUM CHLORIDE 0.9% INJ 100 ML IV ONE ×2
[2017-05-25] MEDS ORDERED: VANCOMYCIN INJ 1,000 MG in SODIUM CHLOR 0.9% 250 ML INJ 250 ML IV ONE ×2
[2017-05-25] MEDS ORDERED: MORPHINE SULFATE 4 MG/ML INJ IV PUSH ONE (00:15)
--- NOTE | 2017-05-25 01:23 | RADRPT ---
EXAM DATE/TIME: 05/25/2017 00:56 [facility] COMPARISON: CT ABDOMEN & PELVIS W CONTRAST, May 24, 2017, 23:24. INDICATIONS : Right upper quadrant pain. MEDICAL HISTORY : Spinal meningitis. Endometriosis. Depression. Bipolar. SURGICAL HISTORY : Appendectomy. section. Tubal ligation. Bowel resection. ENCOUNTER: Initial ACUITY: 1 week PAIN SCORE: 9/10 LOCATION: Right upper quadrant MEASUREMENTS: LIVER: 24.1 cm length COMMON DUCT: 5 mm RIGHT KIDNEY: 13.0 x 6.3 x 5.0 cm FINDINGS: LIVER: Enlarged without focal mass or biliary ductal dilatation. COMMON DUCT: No intraluminal mass or stone visualized. GALLBLADDER: Mild wall thickening. No stones. PANCREAS: The visualized portions are within normal limits. RIGHT KIDNEY: No evidence of hydronephrosis, stone, or mass. CONCLUSION: Hepatomegaly. Mild nonspecific gallbladder wall thickening. Tyrel Norris MD on May 25, 2017 at 1:19 Board Certified Radiologist. This report was verified electronically.
[2017-05-25] MEDS ORDERED: SODIUM CHLORIDE 0.9% FLUSH 10 ML FLUSH IV FLUSH PRN ×2 (01:30→03:15)
[2017-05-25] MEDS ORDERED: ACETAMINOPHEN 325 MG TAB PO PRN ×3 (01:30→09:00)
[2017-05-25] MEDS ORDERED: NALOXONE HCL 0.4 MG/ML AMP IV PUSH PRN ×2 (01:30→03:15)
[2017-05-25] MEDS ORDERED: ONDANSETRON HCL 4 MG/2 ML VIAL IVP PRN ×2 (01:30→03:15)
[2017-05-25] MEDS ORDERED: DEXT 5%-NACL 0.45% 1000 ML INJ 1,000 ML IV SCH (02:00)
[2017-05-25] MEDS: SODIUM CHLOR 0.9% 1000 ML INJ 1,000 ML IV SCH ×2 (03:05→11:14)
[2017-05-25] MEDS ORDERED: MAGNESIUM HYDROXIDE SUSP 30 ML CUP PO PRN (03:15)
[2017-05-25] MEDS ORDERED: BISACODYL 10 MG SUPP RECTAL PRN (03:15)
[2017-05-25] MEDS ORDERED: LACTULOSE SYRUP 20 GM/30 ML CUP PO PRN (03:15)
[2017-05-25] MEDS ORDERED: SENNOSIDES 8.6 MG TAB PO PRN (03:15)
[2017-05-25 03:18] LABS: AMORPHOUS SEDIMENT, URINE RARE; BACTERIA, URINE OCC /hpf; BILIRUBIN, URINE NEG (NEG); BLOOD, URINE SMALL (NEG); GLUCOSE,URINE NEG (NEG); KETONE, URINE NEG (NEG); MUCUS URINE FEW /lpf (OCC); NITRITE,URINE POS (NEG); PH, URINE 6.5 (5.0-8.5); RENAL EPITHELIAL CELLS <1 /hpf; SQUAMOUS EPITHELIAL CELL URINE 5 /hpf (0-5); URINE COLOR YELLOW (YELLW/STRAW); URINE LEUKOCYTE ESTERASE LARGE (NEG); WHITE BLOOD CELL CLUMPS OCC
[2017-05-25] MEDS ORDERED: Vancomycin Consult Pharmacy 1 EA OTHER SCH (03:30)
[2017-05-25] MEDS: ZOLPIDEM TARTRATE 5 MG TAB PO PRN ×2 (03:32→20:39)
[2017-05-25] MEDS: HYDROmorphone HCL PF 0.5 MG/0.5 ML SYRINGE IV PUSH PRN ×5 (03:33→20:39)
--- NOTE | 2017-05-25 03:44 | HHI.HP ---
[facility] No Primary Care Physician Admission Diagnosis Sepsis, acute kidney injury, gallbladder wall thickening Diagnoses: Travel History International Travel<30 Days: No Contact w/Intl Traveler <30 Da: No Traveled to Known Affected Are: No History of Present Illness 37-year-old female with past medical history significant for endometriosis presents with a six-day history of generalized malaise, sore throat, dry mouth and nausea/vomiting with severe abdominal pain. The patient also states that her tongue has been covered in white and that she has been having difficulty swallowing. The patient has severe upper epigastric pain that is exquisitely tender to palpation. Patient was previously diagnosed with nonalcoholic fatty liver disease in 2006. Her CT of the abdomen and pelvis was significant for hepatosplenomegaly with periportal edema and nonspecific gallbladder wall thickening. Alkaline phosphatase is elevated, AST/ALT within normal limits. Ultrasound of the gallbladder revealed nonspecific gallbladder wall thickening. Her white blood cell count is 43.3. She is afebrile and denies fever/chills. Is tachycardic in the 130s. Lactic acid 1.6. T bili 2.0. Review of Systems Denies fever or chills Denies blurry vision, otorrhea, rhinorrhea Positive sore throat, negative cough No chest pain, palpitations, shortness of breath Severe epigastric abdominal pain Nausea and vomiting Generalized fatigue Rash on her left neck Past Family Social History Past Medical History Endometriosis Past Surgical History Appendectomy with bowel resection 3 Reported Medications Reported Meds & Active Scripts Active Metrogel Vaginal Gel (Metronidazole Vaginal Gel) 0.75 % Gel 1 Appl VAGINAL HS 5 Days Anaprox DS (Naproxen Sodium) 550 Mg Tab 550 Mg PO Q12HR PRN Allergies: Coded Allergies: codeine (Unverified Allergy, Severe, 05/23/17) "I GET REALLY HYPER" penicillin G (Unverified Allergy, Severe, 05/23/17) "I GET REALLY HYPER" promethazine (Unverified Allergy, Severe, 05/23/17) "I GET REALLY HYPER" Family History Father's medical history is unknown. Mom with unspecified cardiac issues. Social History Smokes one pack per day 20 years. Occasional alcohol use. Denies marijuana and illicit drugs. Physical Exam Vital Signs Vital Signs Date Time Temp Pulse Resp B/P (MAP) Pulse Ox O2 Delivery O2 Flow Rate FiO2 05/25/17 02:12 97.1 126 20 104/58 (73) 97 05/24/17 20:32 98.1 131 16 117/69 (85) 99 Room Air Physical Exam GENERAL: Well-nourished, well-developed lying in bed in moderate distress SKIN: Papular erythematous rash on left neck. Remainder of skin is warm and dry. HEAD: Atraumatic. Normocephalic. No temporal or scalp tenderness. EYES: Pupils equal round and reactive. Extraocular motions intact. No scleral icterus. No injection or drainage. ENT: Nose without bleeding, purulent drainage or septal hematoma. Throat without erythema, tonsillar hypertrophy or exudate. Tongue with white plaques. Uvula midline. Airway patent. NECK: Trachea midline. No JVD or lymphadenopathy. Supple, nontender, no meningeal signs. CARDIOVASCULAR: Regular rate and rhythm without murmurs, gallops, or rubs. RESPIRATORY: Clear to auscultation. Breath sounds equal bilaterally. No wheezes , rales, or rhonchi. GASTROINTESTINAL: Abdomen distended, exquisitely tender to palpation worst in the upper epigastric region. Involuntary guarding. No peritoneal signs. MUSCULOSKELETAL: Extremities without clubbing, cyanosis, or edema. No joint tenderness, effusion, or edema noted. No calf tenderness. Negative Homans sign bilaterally. NEUROLOGICAL: Awake and alert. Cranial nerves II through XII intact. Motor and sensory grossly within normal limits. Five out of 5 muscle strength in all muscle groups. Normal speech. Laboratory Laboratory Tests Test 05/24/17 22:03 05/25/17 01:30 White Blood Count 43.3 Red Blood Count 3.66 Hemoglobin 11.5 Hematocrit 33.1 Mean Corpuscular Volume 90.4 Mean Corpuscular Hemoglobin 31.3 Mean Corpuscular Hemoglobin Concent 34.6 Red Cell Distribution Width 13.6 Platelet Count 376 Mean Platelet Volume 6.7 Neutrophils (%) (Auto) 89.3 Lymphocytes (%) (Auto) 4.8 Monocytes (%) (Auto) 5.3 Eosinophils (%) (Auto) 0.5 Basophils (%) (Auto) 0.1 Neutrophils # (Auto) 38.6 Lymphocytes # (Auto) 2.1 Monocytes # (Auto) 2.3 Eosinophils # (Auto) 0.2 Basophils # (Auto) 0.1 CBC Comment AUTO DIFF Differential Total Cells Counted 100 Neutrophils % (Manual) 81 Band Neutrophils % 9 Lymphocytes % 5 Monocytes % 5 Neutrophils # (Manual) 39.0 Differential Comment FINAL DIFF MANUAL Toxic Granulation 1+ Toxic Vacuolation PRESENT Dohle Bodies PRESENT Platelet Estimate NORMAL Platelet Morphology Comment NORMAL Red Cell Morphology Comment NORMAL Prothrombin Time 12.3 Prothromb Time International Ratio 1.1 Activated Partial Thromboplast Time 37.0 Blood Urea Nitrogen 16 Creatinine 1.82 Random Glucose 61 Total Protein 7.6 Albumin 2.4 Calcium Level 8.8 Alkaline Phosphatase 264 Aspartate Amino Transf (AST/SGOT) 26 Alanine Aminotransferase (ALT/SGPT) 29 Total Bilirubin 2.0 Direct Bilirubin 1.3 Sodium Level 138 Potassium Level 4.0 Chloride Level 100 Carbon Dioxide Level 24.8 Anion Gap 13 Estimat Glomerular Filtration Rate 32 Lactic Acid Level 1.6 Indirect Bilirubin 0.7 Troponin I LESS THAN 0.02 Lipase 34 Date/Time Source Procedure Growth Status 05/24/17 23:00 Blood Peripheral Aerobic Blood Culture Pending Received 05/24/17 23:00 Blood Peripheral Anaerobic Blood Culture Pending Received 05/24/17 22:07 Throat Group A Streptococcus Screen Pending Received Result Diagram: 05/24/17220205/24/172202 Caprini VTE Risk Assessment Caprini VTE Risk Assessment: No/Low Risk (score <= 1) Caprini Risk Assessment Model Point Value = 1 Point Value = 2 Point Value = 3 Point Value = 5 Age 41-60 Minor surgery BMI > 25 kg/m2 Swollen legs Varicose veins or History of unexplained or recurrent spontaneous Oral contraceptives or hormone replacement Sepsis (< 1 month) Serious lung disease, including pneumonia (< 1 month) Abnormal pulmonary function Acute myocardial infarction Congestive heart failure (< 1 month) History of inflammatory bowel disease Medical patient at bed rest Age 61-74 Arthroscopic surgery Major open surgery (> 45 min) Laparoscopic surgery (> 45 min) Malignancy Confined to bed (> 72 hours) Immobilizing plaster cast Central venous access Age >= 75 History of VTE Family history of VTE Factor V Leiden Prothrombin [id number] Lupus anticoagulant Anticardiolipin antibodies Elevated serum homocysteine Heparin-induced thrombocytopenia Other congenital or acquired thrombophilia Stroke (< 1 month) Elective arthroplasty Hip, pelvis, or leg fracture Acute spinal cord injury (< 1 month) Prophylaxis Regimen Total Risk Factor Score Risk Level Prophylaxis Regimen 0-1 Low Early ambulation 2 Moderate Order ONE of the following: *Sequential Compression Device (SCD) *Heparin 5000 units SQ BID 3-4 Higher Order ONE of the following medications: *Heparin 5000 units SQ TID *Enoxaparin/Lovenox 40 mg SQ daily (WT < 150 kg, CrCl > 30 mL/min) *Enoxaparin/Lovenox 30 mg SQ daily (WT < 150 kg, CrCl > 10-29 mL/min) *Enoxaparin/Lovenox 30 mg SQ BID (WT < 150 kg, CrCl > 30 mL/min) AND/OR *Sequential Compression Device (SCD) 5 or more Highest Order ONE of the following medications: *Heparin 5000 units SQ TID (Preferred with Epidurals) *Enoxaparin/Lovenox 40 mg SQ daily (WT < 150 kg, CrCl > 30 mL/min) *Enoxaparin/Lovenox 30 mg SQ daily (WT < 150 kg, CrCl > 10-29 mL/min) *Enoxaparin/Lovenox 30 mg SQ BID (WT < 150 kg, CrCl > 30 mL/min) AND *Sequential Compression Device (SCD) Assessment and Plan Assessment and Plan 37-year-old female with past medical history of endometriosis presents to the emergency department with a 6 day history of generalized malaise, extreme abdominal pain and nausea vomiting. 1. Leukocytosis Blood cell count 43.3 Unclear etiology, although may be related to her significant abdominal pain Antibiotics as below Peripheral smear ordered Hematology consulted Monitor for severe sepsis 2. Severe abdominal pain CT of the abdomen/pelvis significant for hepatosplenomegaly and gallbladder wall thickening. Ultrasound of the gallbladder also showed nonspecific thickening. Concern for cholangitis; continue vancomycin and aztreonam HIV and hepatitis profile ordered General surgery consult Gastroenterology consult FEN NS at 100 cc/hour Nothing by mouth until evaluated by Gen. surgery, gastroenterology Electrolytes within normal limits; continue to monitor SCDs Physician Certification 2 Midnight Certification Type: Admission for Inpatient Services Order for Inpatient Services The services are ordered in accordance with Medicare regulations or non- Medicare payer requirements, as applicable. In the case of services not specified as inpatient-only, they are appropriately provided as inpatient services in accordance with the 2-midnight benchmark. Estimated LOS (days): 3 3 days is the estimated time the patient will need to remain in the hospital, assuming treatment plan goals are met and no additional complications. Post-Hospital Plan: Not yet determined Jordyn Crow MD May 25, 2017 03:44
[2017-05-25] MEDS ORDERED: SODIUM CHLORID 0.9% 500 ML INJ 500 ML IV ONE (06:00)
--- NOTE | 2017-05-25 08:00 | PD.CONS ---
HPI Service General Surgery Consult Requested By Dr. Carmen Reason for Consult Thickened gallbladder wall Primary Care Physician No Primary Care Physician History of Present Illness 37-year-old female presents with a one-week history of upper respiratory symptoms including swelling and soreness of the throat and mouth and cough. She developed epigastric and right upper abdominal pain about 3 days ago which is increased in severity. This morning she is complaining of tightness and pain in the posterior neck and head. She had fever and chills at home. She has been notably tachycardic. White blood count in the emergency department was 43,000. Bilirubin is 2.0 and alkaline phosphatase mildly elevated. Creatinine is 1.82. CT of the abdomen and pelvis shows mild periportal edema with gallbladder wall thickening and hepatosplenomegaly and findings concerning for right pyelonephritis. Ultrasound of the gallbladder was performed at my request and shows hepatomegaly with mild nonspecific gallbladder wall thickening and no gallstones. The patient relates a history of appendectomy and bowel resection which I think was a ileocecectomy. She has a history of meningitis per her report 2 separate times. Review of Systems Constitutional: COMPLAINS OF: Fever, Chills Eyes: DENIES: Eye inflammation, Eye pain Ears, nose, mouth, throat: COMPLAINS OF: Oral lesions, Throat pain Respiratory: COMPLAINS OF: Cough, DENIES: Shortness of breath Cardiovascular: COMPLAINS OF: Chest pain, DENIES: Palpitations Gastrointestinal: COMPLAINS OF: Abdominal pain Musculoskeletal: COMPLAINS OF: Stiffness, Neck pain Integumentary: DENIES: Pruritus, Rash Neurologic: DENIES: Localized weakness, Paresthesias Past Family Social History Past Medical History Meningitis Appendicitis Endometriosis Past Surgical History Appendectomy probable ileocecectomy 3 Reported Medications Reported Meds & Active Scripts Active Metrogel Vaginal Gel (Metronidazole Vaginal Gel) 0.75 % Gel 1 Appl VAGINAL HS 5 Days Anaprox DS (Naproxen Sodium) 550 Mg Tab 550 Mg PO Q12HR PRN Allergies: Coded Allergies: codeine (Unverified Allergy, Severe, 05/23/17) "I GET REALLY HYPER" penicillin G (Unverified Allergy, Severe, 05/23/17) "I GET REALLY HYPER" promethazine (Unverified Allergy, Severe, 05/23/17) "I GET REALLY HYPER" Active Ordered Medications Current Medications Medications (Trade) Dose Ordered Sig/Ivelisse Route Start Time Stop Time Status Last Admin (Pneumovax-23 Inj) 25 mcg ONCE ONCE IM 05/26/17 10:00 05/26/17 10:01 (Flu (Quadrivalent) Vaccine Inj) 0.5 ml ONCE ONCE IM 05/26/17 10:00 05/26/17 10:01 Sodium Chloride 1,000 ml @ 100 mls/hr Q10H IV 05/25/17 03:05 05/25/17 03:05 (NS Flush) 2 ml UNSCH PRN IV FLUSH 05/25/17 03:15 (NS Flush) 2 ml BID IV FLUSH 05/25/17 09:00 (Tylenol) 650 mg Q4H PRN PO 05/25/17 03:15 (Zofran Inj) 4 mg Q6H PRN IVP 05/25/17 03:15 (Ambien) 5 mg HS PRN PO 05/25/17 03:15 05/25/17 03:32 (Narcan Inj) 0.4 mg UNSCH PRN IV PUSH 05/25/17 03:15 (Rachelle-Colace) 1 tab BID PO 05/25/17 09:00 (Milk Of Magnesia Liq) 30 ml Q12H PRN PO 05/25/17 03:15 (Senokot) 17.2 mg Q12H PRN PO 05/25/17 03:15 (Dulcolax Supp) 10 mg DAILY PRN RECTAL 05/25/17 03:15 (Lactulose Liq) 30 ml DAILY PRN PO 05/25/17 03:15 (Dilaudid Pf Inj) 0.5 mg Q4H PRN IV PUSH 05/25/17 03:15 05/25/17 03:33 (Diflucan) 200 mg DAILY PO 05/25/17 09:00 (Magic Mouthwash Adult Liq) 10 ml QID SWISH-SWAL 05/25/17 09:00 Pharmacy Profile Note 0 ml @ 0 mls/hr UNSCH OTHER 05/25/17 03:30 Aztreonam 2000 mg/ Sodium Chloride 100 ml @ 200 mls/hr Q8H IV 05/25/17 10:00 Family History Noncontributory Social History She smokes a pack of cigarettes daily. No tobacco or drug use. Physical Exam Vital Signs Vital Signs Date Time Temp Pulse Resp B/P (MAP) Pulse Ox O2 Delivery O2 Flow Rate FiO2 05/25/17 05:54 133 16 112/62 (79) 98 05/25/17 04:07 16 05/25/17 03:41 126 05/25/17 02:12 97.1 126 20 104/58 (73) 97 05/24/17 20:32 98.1 131 16 117/69 (85) 99 Room Air Physical Exam GENERAL: Awake and alert. She is in moderate distress. She is bent slightly at the waist that she ambulates. HEAD: Normocephalic. Atraumatic. NECK: Trachea midline. Discomfort with flexion of the neck forward. CHEST: Lungs clear to auscultation bilaterally with no wheezing or rhonchi. No respiratory distress. CARDIOVASCULAR: Sinus tachycardia ABDOMEN: Small midline scar. Reducible ventral hernia. Severe tenderness with rebound in the epigastrium and the right upper quadrant with guarding. EXTREMITIES: No cyanosis or edema. SKIN: Warm, dry, nonjaundiced. Laboratory Laboratory Tests Test 05/24/17 22:03 05/25/17 01:30 White Blood Count 43.3 Red Blood Count 3.66 Hemoglobin 11.5 Hematocrit 33.1 Mean Corpuscular Volume 90.4 Mean Corpuscular Hemoglobin 31.3 Mean Corpuscular Hemoglobin Concent 34.6 Red Cell Distribution Width 13.6 Platelet Count 376 Mean Platelet Volume 6.7 Neutrophils (%) (Auto) 89.3 Lymphocytes (%) (Auto) 4.8 Monocytes (%) (Auto) 5.3 Eosinophils (%) (Auto) 0.5 Basophils (%) (Auto) 0.1 Neutrophils # (Auto) 38.6 Lymphocytes # (Auto) 2.1 Monocytes # (Auto) 2.3 Eosinophils # (Auto) 0.2 Basophils # (Auto) 0.1 CBC Comment AUTO DIFF Differential Total Cells Counted 100 Neutrophils % (Manual) 81 Band Neutrophils % 9 Lymphocytes % 5 Monocytes % 5 Neutrophils # (Manual) 39.0 Differential Comment FINAL DIFF MANUAL Toxic Granulation 1+ Toxic Vacuolation PRESENT Dohle Bodies PRESENT Platelet Estimate NORMAL Platelet Morphology Comment NORMAL Red Cell Morphology Comment NORMAL Prothrombin Time 12.3 Prothromb Time International Ratio 1.1 Activated Partial Thromboplast Time 37.0 Blood Urea Nitrogen 16 Creatinine 1.82 Random Glucose 61 Total Protein 7.6 Albumin 2.4 Calcium Level 8.8 Alkaline Phosphatase 264 Aspartate Amino Transf (AST/SGOT) 26 Alanine Aminotransferase (ALT/SGPT) 29 Total Bilirubin 2.0 Direct Bilirubin 1.3 Sodium Level 138 Potassium Level 4.0 Chloride Level 100 Carbon Dioxide Level 24.8 Anion Gap 13 Estimat Glomerular Filtration Rate 32 Lactic Acid Level 1.6 Indirect Bilirubin 0.7 Troponin I LESS THAN 0.02 Lipase 34 Urine Color YELLOW Urine Turbidity HAZY Urine pH 6.5 Urine Specific [place] 1.027 Urine Protein 30 Urine Glucose (UA) NEG Urine Ketones NEG Urine Occult Blood SMALL Urine Nitrite POS Urine Bilirubin NEG Urine Urobilinogen LESS THAN 2.0 Urine Leukocyte Esterase LARGE Urine RBC 2 Urine WBC 40 Urine WBC Clumps OCC Urine Squamous Epithelial Cells 5 Urine Renal Epithelial Cells <1 Urine Amorphous Sediment RARE Urine Bacteria OCC Urine Mucus FEW Microscopic Urinalysis Comment CULTURE INDICATED Date/Time Source Procedure Growth Status 05/24/17 23:00 Blood Peripheral Aerobic Blood Culture Pending Received 05/24/17 23:00 Blood Peripheral Anaerobic Blood Culture Pending Received 05/24/17 22:07 Throat Group A Streptococcus Screen Pending Received 05/25/17 01:30 Urine Clean Catch Urine Culture Pending Received Result Diagram: 05/24/[id number]/24/[id number] images reviewed Please see report of ultrasound and CT abdomen and pelvis Assessment and Plan Assessment and Plan 37-year-old female with severe sepsis. She has severe leukocytosis, acute kidney injury, elevation of bilirubin and alkaline phosphatase. She has hepatosplenomegaly with periportal edema and gallbladder wall thickening. No gallstones are present. She has had a one-week long possibly viral illness. CT abdomen and pelvis also shows possible pyelonephritis. I added Flagyl to her antibiotic regimen. I have consulted infectious disease for further recommendations. I will order a stat MRCP to rule out biliary obstruction due to the elevated bilirubin and alkaline phosphatase, and GI has been consulted. It is not clear if any biliary disease is the etiology of her illness as her abdominal pain began only 3 days ago and is really no clear imaging findings. Hematology has also been consulted for evaluation. Wilman Moreno MD May 25, 2017 08:00
[2017-05-25] MEDS ORDERED: SODIUM CHLORIDE 0.9% FLUSH 10 ML FLUSH IV FLUSH SCH (09:00)
[2017-05-25] MEDS ORDERED: SODIUM CHLOR 0.9% 1000 ML INJ 1,000 ML IV ONE ×2 (09:00→18:45)
[2017-05-25] MEDS: SODIUM CHLORIDE 0.9% FLUSH 10 ML FLUSH IV FLUSH SCH ×2 (09:37→20:31)
[2017-05-25] MEDS: metroNIDAZOLE 500 MG INJ 100 ML IV SCH ×3 (09:37→20:31)
[2017-05-25] MEDS: DOCUSATE SODIUM 50 MG/SENNA 8.6 MG TAB PO SCH ×2 (09:38→20:30)
[2017-05-25] MEDS: FLUCONAZOLE 200 MG TAB PO SCH (09:38)
[2017-05-25] MEDS: NYSTAT/DIPHENHY/LIDO MOUTHWASH (Adult) 120ML SWISH-SWAL SCH ×4 (09:38→20:31)
[2017-05-25 09:53] LABS: AUTOMATED NEUTROPHIL # 33.3 TH/MM3 (1.8-7.7); BASOPHIL # 0.1 TH/MM3 (0-0.2); BASOPHIL % 0.3 % (0.0-2.0); EOSINOPHIL # 0.1 TH/MM3 (0-0.4); EOSINOPHIL % 0.1 % (0.0-4.0); HEMATOCRIT 29.2 % (35.0-46.0); HEMOGLOBIN 9.9 GM/DL (11.6-15.3); LYMPH % 4.5 % (9.0-44.0); LYMPHOCYTE # 1.7 TH/MM3 (1.0-4.8); MEAN CELL VOLUME 90.1 FL (80.0-100.0); MEAN CORPUSCULAR HEMOGLOBIN 30.4 PG (27.0-34.0); MEAN CORPUSCULAR HGB CONC 33.8 % (32.0-36.0); MEAN PLATELET VOLUME 6.5 FL (7.0-11.0); MONO % 6.1 % (0.0-8.0); MONOCYTE # 2.3 TH/MM3 (0-0.9); PLATELET COUNT 376 TH/MM3 (150-450); RED BLOOD COUNT 3.24 MIL/MM3 (4.00-5.30); RED CELL DISTRIBUTION WIDTH 13.7 % (11.6-17.2); WHITE BLOOD COUNT 37.4 TH/MM3 (4.0-11.0)
--- NOTE | 2017-05-25 10:00 | RADRPT ---
EXAM DATE/TIME: 05/25/2017 08:51 [facility] COMPARISON: CT ABDOMEN & PELVIS W CONTRAST, December 22, 2016, 22:01. CT ABDOMEN & PELVIS W CONTRAST, May 24 017, 23:24. US ABDOMEN - GALLBLADDER, May 25, 2017, 0:56. INDICATIONS : Gallbladder thickening with acute kidney injury and sepsis. Abdominal pain. MEDICAL HISTORY : None. SURGICAL HISTORY : Appendectomy. section. bowel resection ENCOUNTER: Subsequent ACUITY: 2 day PAIN SCORE: 3/10 LOCATION: abdomen TECHNIQUE: Multiplanar, multisequence magnetic resonance imaging of the abdomen was performed. High-resolution 3D dataset was utilized to reconstruct maximum-intensity projection (MIP) images. FINDINGS: INTRAHEPATIC BILE DUCTS: Within normal limits. No significant anatomical variant is present. EXTRAHEPATIC BILE DUCTS: The common bile duct measures 3 mm No stone or filling defect is identified. GALLBLADDER: No stones, no significant wall thickening, or pericholecystic fluid. LIVER: Liver appears to be diffusely enlarged measuring 26.1 cm in overall length. The signal intensity thro ughout the liver is within normal limits. No mass occupying lesions are demonstrated. PANCREAS: The main pancreatic duct is normal in size. There is no significant anatomical variant. Signal inte nsity is within normal limits. No mass is visualized on this non-contrast exam. OTHER: The spleen is mildly enlarged measuring 14.7 cm. The left kidney is unremarkable. However, the right kidney has an abnormal appearance. The kidney appears to be enlarged measuring 13.4 cm. There is no h ydronephrosis. However, there are multiple wedge shaped defects throughout the renal parenchyma of th e entire right kidney. There does not appear to be any perinephric edema. CONCLUSION: 1. Hepatosplenomegaly. 2. The gallbladder is grossly unremarkable. No biliary tract obstruction. 3. Abnormal appearance of the right kidney. Multiple wedge shaped defects are seen throughout the chaitanya al parenchyma of the entire right kidney. The appearance suggests multiple parenchymal infarcts with mild diffuse enlargement of the right kidney. No hydronephrosis or perinephric edema. Daniel Jonas MD on May 25, 2017 at 9:47 Board Certified Radiologist. This report was verified electronically.
[2017-05-25 10:28] LABS: BANDS 14 % (0-6); LYMPHOCYTES 7 % (9-44); MONOCYTES 8 % (0-8); MYELOCYTES 1 % (0-0); NEUTROPHIL # MANUAL DIFF 31.8 TH/MM3 (1.8-7.7); POLYS (SEG NEUTROPHILS) 70 % (16-70); TOXIC GRANULATION 1+ (NORMAL)
[2017-05-25 10:29] LABS: DOHLE BODIES PRESENT (NONE SEEN)
--- NOTE | 2017-05-25 10:55 | PD.CONS ---
HPI History of Present Illness This is a 37 year old female who has been having "white spots" in her mouth for the past week, that she reports has slowly progressed down into her esophagus, which has caused her to have nausea and vomiting, consisting of bilious material. She does not usually have heartburn or reflux, but has been having severe heartburn for the past week. She also complains of odynophagia, but she denies any actual dysphagia. She has had associated fevers and chills. She has not been on recent antibiotics. She reports that she has endometriosis with constant lower abdominal pain, described as dull aching, that worsens and becomes more sharp around her menstrual cycle. However, around the same time that she started having the nausea and vomiting, she also started having an epigastric discomfort that is different and feels more like "a bubble or water balloon." She has been trying to take mostly clears and has not had much to eat. She also reports that she has abdominal distention, diarrhea, melena, or hematochezia. She does report that she has been constipated a few times over the past few months. She did use an OTC laxative about a month ago, but does not take these on a regular basis. She takes Naproxen as needed for her endometriosis related pain. Of note, she has also been having some intermittent burning with urination for which she has taken Azo Standard a few times over the past week. She denies any recent travel, suspicious food, or sick contacts (other than visiting her GM in the ICU for sepsis/pneumonia last Monday). She has been evaluated by ID and they are planning for a spinal tap later today. (Natasha Almanza) [facility] Past Medical History Endometriosis Viral Meningitis 97 Bacterial Meningitis 2000 Past Surgical History Appendectomy with bowel resection 3 Spinal tap x 2 (Natasha Almanza) Coded Allergies: codeine (Unverified Allergy, Severe, 05/23/17) "I GET REALLY HYPER" penicillin G (Unverified Allergy, Severe, 05/23/17) "I GET REALLY HYPER" promethazine (Unverified Allergy, Severe, 05/23/17) "I GET REALLY HYPER" Medications Allergies Coded Allergies Type Severity Reaction Last Updated Verified codeine Allergy Severe 05/23/17 No penicillin G Allergy Severe 05/23/17 No promethazine Allergy Severe 05/23/17 No Active Scripts Medications Dose Route/Sig Max Daily Dose Days Date Category Metrogel Vaginal Gel (Metronidazole Vaginal Gel) 0.75 % Gel 1 Appl VAGINAL HS 5 12/23/16 Rx Anaprox DS (Naproxen Sodium) 550 Mg Tab 550 Mg PO Q12HR PRN 12/23/16 Rx Family History Father's medical history is unknown. Mom with unspecified cardiac issues. Social History Smokes one pack per day 20 years. Occasional alcohol use. Denies marijuana and illicit drugs. (Natasha Almanza) Review of Systems Constitutional: COMPLAINS OF: Fatigue, Fever, Chills Ears, nose, mouth, throat: COMPLAINS OF: Oral lesions (thrush) Respiratory: COMPLAINS OF: Shortness of breath Cardiovascular: COMPLAINS OF: Chest pain, DENIES: Syncope Gastrointestinal: COMPLAINS OF: Abdominal pain, Constipation, Nausea, Vomiting , Odynophagia, Heartburn, Hematemesis, DENIES: Black stools, Bloody stools, Diarrhea, Difficulty Swallowing Musculoskeletal: COMPLAINS OF: Joint pain, Muscle aches Hematologic/lymphatic: DENIES: Bruising Neurologic: DENIES: Headache Psychiatric: DENIES: Confusion (Natasha Almanza) GI Exam Vitals I&O Vital Signs Date Time Temp Pulse Resp B/P (MAP) Pulse Ox O2 Delivery O2 Flow Rate FiO2 05/25/17 09:54 96.9 05/25/17 08:17 101.7 135 36 114/55 (74) 93 05/25/17 05:54 133 16 112/62 (79) 98 05/25/17 04:07 16 05/25/17 03:41 126 05/25/17 02:12 97.1 126 20 104/58 (73) 97 05/24/17 20:32 98.1 131 16 117/69 (85) 99 Room Air I/O 05/24/17 05/24/17 05/24/17 05/25/17 05/25/17 05/25/17 07:00 15:00 23:00 07:00 15:00 23:00 # Voids [address] Scan abdomen and pelvis with iv contrast (05/24/17)---> Hepatosplenomegaly with mild periportal edema and gallbladder wall thickening, these findings new since previous exam, appearance of the right kidney worrisome for pyelonephritis , right ovarian cyst. US GB (05/25/17)---> Hepatomegaly, mild nonspecific gallbladder wall thickening. MRCP without contrast (05/25/17)--> Hepatosplenomegaly, the gallbladder is grossly unremarkable. No biliary tract obstruction. Abnormal appearance of the right kidney. Multiple wedge shaped defects are seen throughout the renal parenchyma of the entire right kidney. The appearance suggests multiple parenchyma infarcts with mild diffuse enlargement of the right kidney. No hydronephrosis or perinephric edema. Laboratory Test 05/24/17 22:03 05/25/17 01:30 05/25/17 09:32 White Blood Count 43.3 TH/MM3 37.4 TH/MM3 Red Blood Count 3.66 MIL/MM3 3.24 MIL/MM3 Hemoglobin 11.5 GM/DL 9.9 GM/DL Hematocrit 33.1 % 29.2 % Mean Corpuscular Volume 90.4 FL 90.1 FL Mean Corpuscular Hemoglobin 31.3 PG 30.4 PG Mean Corpuscular Hemoglobin Concent 34.6 % 33.8 % Red Cell Distribution Width 13.6 % 13.7 % Platelet Count 376 TH/MM3 376 TH/MM3 Mean Platelet Volume 6.7 FL 6.5 FL Neutrophils (%) (Auto) 89.3 % 89.0 % Lymphocytes (%) (Auto) 4.8 % 4.5 % Monocytes (%) (Auto) 5.3 % 6.1 % Eosinophils (%) (Auto) 0.5 % 0.1 % Basophils (%) (Auto) 0.1 % 0.3 % Neutrophils # (Auto) 38.6 TH/MM3 33.3 TH/MM3 Lymphocytes # (Auto) 2.1 TH/MM3 1.7 TH/MM3 Monocytes # (Auto) 2.3 TH/MM3 2.3 TH/MM3 Eosinophils # (Auto) 0.2 TH/MM3 0.1 TH/MM3 Basophils # (Auto) 0.1 TH/MM3 0.1 TH/MM3 CBC Comment AUTO DIFF AUTO DIFF Differential Total Cells Counted 100 100 Neutrophils % (Manual) 81 % 70 % Band Neutrophils % 9 % 14 % Lymphocytes % 5 % 7 % Monocytes % 5 % 8 % Neutrophils # (Manual) 39.0 TH/MM3 31.8 TH/MM3 Differential Comment FINAL DIFF MANUAL FINAL DIFF MANUAL Toxic Granulation 1+ 1+ Toxic Vacuolation PRESENT Dohle Bodies PRESENT PRESENT Platelet Estimate NORMAL NORMAL Platelet Morphology Comment NORMAL NORMAL Red Cell Morphology Comment NORMAL Prothrombin Time 12.3 SEC Prothromb Time International Ratio 1.1 RATIO Activated Partial Thromboplast Time 37.0 SEC Blood Urea Nitrogen 16 MG/DL Creatinine 1.82 MG/DL Random Glucose 61 MG/DL Total Protein 7.6 GM/DL Albumin 2.4 GM/DL Calcium Level 8.8 MG/DL Alkaline Phosphatase 264 U/L Aspartate Amino Transf (AST/SGOT) 26 U/L Alanine Aminotransferase (ALT/SGPT) 29 U/L Total Bilirubin 2.0 MG/DL Direct Bilirubin 1.3 MG/DL Sodium Level 138 MEQ/L Potassium Level 4.0 MEQ/L Chloride Level 100 MEQ/L Carbon Dioxide Level 24.8 MEQ/L Anion Gap 13 MEQ/L Estimat Glomerular Filtration Rate 32 ML/MIN Lactic Acid Level 1.6 mmol/L Indirect Bilirubin 0.7 MG/DL Troponin I LESS THAN 0.02 NG/ML Lipase 34 U/L Urine Color YELLOW Urine Turbidity HAZY Urine pH 6.5 Urine Specific [place] 1.027 Urine Protein 30 mg/dL Urine Glucose (UA) NEG mg/dL Urine Ketones NEG mg/dL Urine Occult Blood SMALL Urine Nitrite POS Urine Bilirubin NEG Urine Urobilinogen LESS THAN 2.0 MG/DL Urine Leukocyte Esterase LARGE Urine RBC 2 /hpf Urine WBC 40 /hpf Urine WBC Clumps OCC Urine Squamous Epithelial Cells 5 /hpf Urine Renal Epithelial Cells <1 /hpf Urine Amorphous Sediment RARE Urine Bacteria OCC /hpf Urine Mucus FEW /lpf Microscopic Urinalysis Comment CULTURE INDICATED Myelocytes 1 % Blood Smear Pathologist Review Date/Time Source Procedure Growth Status 05/24/17 23:00 Blood Peripheral Aerobic Blood Culture Pending Received 05/24/17 23:00 Blood Peripheral Anaerobic Blood Culture Pending Received 05/24/17 22:07 Throat Group A Streptococcus Screen Pending Received 05/25/17 01:30 Urine Clean Catch Urine Culture Pending Received Physical Examination HEENT: Normocephalic; atraumatic; no jaundice. CHEST: CTA CARDIAC: RRR ABDOMEN: Soft, mildly bloated,moderate diffuse tenderness, no hepatosplenomegaly; bowel sounds are present in all four quadrants. EXTREMITIES: No clubbing, cyanosis, or edema. SKIN: Normal; no rash; no jaundice. PACKAGING DESIGN ENGINEER: No focal deficits; alert and oriented times three. (Natasha Almanza [facility]) Assessment and Plan Plan ASSESSMENT: - Abdominal pain, nausea, vomiting. States she has constant abdominal pain r/t endometriosis (not on any type of treatment)- but this is more a constant dull ache in lower abdomen. Started having more epigastric pressure like pain with associated nausea/vomiting about a week ago. CT Scan abdomen and pelvis with iv contrast (05/24/17)---> Hepatosplenomegaly with mild periportal edema and gallbladder wall thickening, these findings new since previous exam, appearance of the right kidney worrisome for pyelonephritis, right ovarian cyst. US GB (05/25/17)---> Hepatomegaly, mild nonspecific gallbladder wall thickening. MRCP without contrast (05/25/17)--> Hepatosplenomegaly, the gallbladder is grossly unremarkable. No biliary tract obstruction. Abnormal appearance of the right kidney. Multiple wedge shaped defects are seen throughout the renal parenchyma of the entire right kidney. The appearance suggests multiple parenchyma infarcts with mild diffuse enlargement of the right kidney. No hydronephrosis or perinephric edema. Pt has hx of meningitis (viral and bacterial per patient), has significant leukocytosis. ID following, plan is for LP with fluid sent for studies. ? r/t pyelonephritis. Likely with some gastritis, possible claudia esophagitis. - Odynophagia, oral candidiasis. She denies any recent abx. States it started in oral cavity and she feels that it has progressed down her esophagus. She is on Diflucan, Magic Mouthwash. Add PPI - Elevated LFTs. Yesterday, had elevated bilirubin (slightly more direct) and elevated alk. phosph. MRCP without any evidence of biliary obstruction. Hepatitis panel pending. Rpt. labs pending. - GERD. Add PPI. - Leukocytosis, fevers, chills. LP ordered. ID following. Vanco, Azactam, Today's labs pending. - Pyelonephritis right, renal infarct right. Vanco, Azactam. - YADI. Creat 1.82, GFR 32 yesterday. Today's labs pending. - Coagulopathy. PT 12.3, INR 1.1, APTT 37.0. pt with hepatomegaly on imaging. Likely coagulopathy is related more to underlying sepsis/infection than actual liver disease. PLAN: - NPO for procedure - LP ordered by ID with CSF studies - Azactam, Vanco - Cont. Diflucan - Add Protonix 40mg IV BID - Await today's labs- CBC, CMP - CBC and CMP in am - Consider EGD based on results of above - Supportive care - Further recommendations to follow based on results of above - Pt seen and examined by Dr. Bettencourt and myself and this note is written on his behalf (Natasha Almanza) Physician Comments Seen and examined. Plan as above. LP pending. Will follow up with you for further recommendations. (Rashmi Bettencourt MD) Natasha Almanza May 25, 2017 10:55 Rashmi Bettencourt MD May 25, 2017 15:28
[2017-05-25 11:40] LABS: HEPATITIS A AB IGM NEGATIVE (NEGATIVE); HEPATITIS B SURFACE ANTIGEN NEGATIVE (NEGATIVE); HEPATITIS C AB IgG NEGATIVE (NEGATIVE)
[2017-05-25 11:46] LABS: ALT (GPT) 21 U/L (10-53); AST (GOT) 38 U/L (15-37); BICARBONATE 18.9 MEQ/L (21.0-32.0); BLOOD UREA NITROGEN 14 MG/DL (7-18); CALCIUM 8.1 MG/DL (8.5-10.1); CHLORIDE 105 MEQ/L (98-107); GLOMERULAR FILTRATION RATE 47 ML/MIN (>89); GLUCOSE,RANDOM 75 MG/DL (74-106); SODIUM (NA) 137 MEQ/L (136-145)
[2017-05-25 11:49] LABS: ALKALINE PHOSPHATASE 236 U/L (45-117); TOTAL BILIRUBIN ADULT 1.9 MG/DL (0.2-1.0); TOTAL PROTEIN 6.8 GM/DL (6.4-8.2)
[2017-05-25] MEDS ORDERED: VANCOMYCIN INJ 1,000 MG in SODIUM CHLOR 0.9% 250 ML INJ 250 ML IV SCH (12:00)
--- NOTE | 2017-05-25 12:00 | MB ---
cc: GRECIA MOTTA MD DATE OF CONSULTATION: 05/25/[address] Moreno. REASON FOR CONSULTATION Elevated white blood cell count. Rule out meningitis. HISTORY OF PRESENT ILLNESS This is a 37-year-old white female who presented to the emergency department with abdominal pain. The patient started feeling sick about a week ago. The illness began initially with throat pain and throat soreness and then she started having episodes of vomiting and fever and chills and sweats. She states that she subsequently started developing upper abdominal pain and pain in the epigastric area, also midsternal pain as well. The patient also developed coughing but has not been producing sputum. She then developed headache which she describes as pain at the back of the neck going down the spine to her lower back. She states that initially she felt like she had the flu but that it would not go away. She has continued to have nausea and vomiting and fevers off and on and feeling hot and cold. She denies photophobia. She describes the headache currently on a scale of 5/10 and occurring at the temporal areas of the head. On evaluation the patient is noted to have a temperature of 98.1 on admission yesterday evening and then this morning the temperature andres to 101.7. White blood cell count yesterday was 43.3 with 89% neutrophils. The patient also has renal disease with a creatinine of 1.82 and estimated GFR of 32. Liver function tests are normal and lipase is normal but alkaline phosphatase is elevated. Urinalysis was performed and it showed a large amount of leukocyte esterase and 40 white cells. The patient underwent CT scan of the abdomen and pelvis and it shows multifocal areas of peripheral cortical hypodensity involving the upper mid and lower pole of the right kidney. It is noted that the appearance would be most consistent with pyelonephritis. There was no evidence of hydronephrosis. Chest x-ray revealed no evidence of pneumonia. Ultrasound of the gallbladder shows hepatomegaly and mild nonspecific gallbladder wall thickening. MRI cholangiopancreatography shows splenomegaly and also hepatomegaly and grossly unremarkable gallbladder and abnormal appearance of the right kidney with multiple wedge shaped defects in the renal parenchyma. The patient denies IV drug use. She denies any recent injections. She states that she visited the grandmother who was in the hospital with pneumonia 2 days before she became sick. She denies exposure to unusual pets. She also notes that she developed a rash at the onset of the illness which was diffuse. The patient has had meningitis on two occasions including one as a child and another time 16 years ago. She describes those as spinal meningitis. She also is noted to have a history of endometriosis. On presentation the patient's heart rate was 131. PAST MEDICAL HISTORY 1. Endometriosis. 2. Appendectomy. 3. Bowel resection. 4. x3. ALLERGIES PENICILLIN CAUSED THE PATIENT TO BECOME HYPER. CODEINE. PROMETHAZINE. MEDICATIONS 1. Vancomycin. 2. Aztreonam. 3. Fluconazole. 4. Metronidazole. 5. Tylenol p.r.n. 6. Ambien. . 7. Dilaudid p.r.n. SOCIAL HISTORY The patient smokes a pack of cigarettes a day. Occasional alcohol. Denies illicit drugs. The patient has three children who are in good health. REVIEW OF SYSTEMS Pertinent as mentioned above in history of present illness. Additionally the patient notes sweats. PHYSICAL EXAMINATION GENERAL: This is a well-developed female who is in no acute distress but she looks chronically ill. She is awake and alert and oriented. VITAL SIGNS: Temperature 96.9, BP 114/55, respirations 24, heart rate 135. HEENT: The head is atraumatic. The face is hyperemic. Extraocular movements grossly intact, pupils reactive to light. No icterus. No conjunctival erythema. Oropharynx moist mucosa. No thrush. No visible lesions. The uvula is midline. NECK: Supple with shotty anterior cervical adenopathy which is tender on palpation. LUNGS: Clear to auscultation. HEART: Regular, S1 and S2 without audible murmurs, rubs or gallops. ABDOMEN: Distended, soft, tenderness on palpation of the midabdomen and rebound tenderness on the right lower abdomen and also tenderness at the right flank. RECTAL: Not performed. EXTREMITIES: No clubbing or cyanosis or edema. SKIN: Skin has a macular rash at the neck, chest, arms and to a lesser degree at the legs. NEURO: No gross focal findings. Cranial nerves intact. PSYCHIATRIC: The patient is calm and cooperative.. LABORATORY DATA WBC 37.4, platelets 376, 89% neutrophils, hemoglobin 9.9, 14% bands. Group A streptococcus screen negative. IMPRESSION 1. Sepsis. 2. Acute pyelonephritis. 3. Fever and headache. Rule out meningitis. 4. Acute kidney disease. 5. Possible systemic viral infection, however, given the very high white blood cell count with left shift and predominant neutrophils, it is more likely she has bacterial infection. RECOMMENDATIONS 1. Obtain lumbar puncture to evaluate for meningitis. 2. Monitor blood cultures. 3. Monitor urine culture. 4. Follow the lumbar puncture. 5. Continue vancomycin. 6. Continue aztreonam. 7. Pain medications to control the headache. 8. Continue metronidazole. 9. Continue fluconazole. Thank you for this consultation. The patient's progress will be monitored and further recommendations will be given upon followup if necessary. Grecia Motta MD FD/CARI /10:55 AM /11:18 AM
[2017-05-25] MEDS: AZTREONAM INJ 2,000 MG in SODIUM CHLORIDE 0.9% INJ 100 ML IV SCH ×2 (12:03→17:43)
--- NOTE | 2017-05-25 13:04 | MB ---
cc: RACHELLE WHITE M.D. DATE OF CONSULTATION: May 25, [address] Crow. REASON FOR CONSULTATION Hematology consulted to render opinion regarding patient with leukocytosis. HISTORY OF PRESENT ILLNESS The patient is a 37-year-old female with history of endometriosis and fatty liver, presented to the hospital with complaint of fatigue, sore throat, abdominal pain. She stated last she started having sore throat and fatigue. She had dysphagia. She has intermittent fever up to 101. She started having severe abdominal pain about 2 days ago. She also has some burning sensation when she urinated last Monday. When she came to the hospital she was found to be tachycardic. She was also noted to have leukocytosis, white blood cell count 43,000. Hematology was consulted for further evaluation. She also noted headache and neck soreness which was going on for several days. PAST MEDICAL HISTORY 1. Endometriosis. 2. Fatty liver. PAST SURGICAL HISTORY 1. Appendectomy with 2. Bowel resection and 3. x3. FAMILY HISTORY Noncontributory. SOCIAL HISTORY Smoked a pack a day for about 20 years, drinks occasionally. ALLERGIES PENICILLIN, CODEINE, PROMETHAZINE. CURRENT MEDICATIONS 1. Vancomycin. 2. Aztreonam. 3. Fluconazole. 4. Metronidazole. 5. Ambien. REVIEW OF SYSTEMS CONSTITUTIONAL: As above. EYES: Negative. ENT: As above. CARDIOVASCULAR: Denies chest pressure, palpitation. RESPIRATORY: Has dyspnea on exertion and dry cough. GI: As above. : As above. MUSCULOSKELETAL: As above. HEMATOLOGY: As above. ENDOCRINE: Negative. DERMATOLOGY: Negative. PSYCHIATRIC: Negative. PHYSICAL EXAMINATION VITAL SIGNS: T-max 101.7, blood pressure 109/61. GENERAL: She is alert and oriented x3. She complains of headache. HEENT: Atraumatic, normocephalic. Pupils equal, round and reactive to light. Extraocular muscles intact. No scleral icterus. Oropharynx dry mucosa. No lesion or thrush. NECK: No thyromegaly. No palpable masses. LYMPHATIC: No palpable cervical, clavicular, axillary, inguinal lymph node. CARDIOVASCULAR: Regular, S1-S2. Mildly tachycardic. No murmur. LUNGS: Clear to auscultation anteriorly. ABDOMEN: Diffuse tenderness, more so on the right upper quadrant. No rebound, no rigidity. Positive bowel sounds. EXTREMITIES: No cyanosis, clubbing or edema. SKIN: No rash or petechia. NEUROLOGIC: Some neck soreness, otherwise nonfocal. LABORATORY DATA Reviewed. ASSESSMENT 1. Leukocytosis with predominant neutrophils and bandemia. There was also toxic granulation and toxic vacuolation consistent with leukemoid reaction due to underlying infection. It appeared that she has acute pyelonephritis and possible cholecystitis. She has been evaluated by infectious disease and in the process of ruling out meningitis also. This morning her white blood cell count trended down to 37,000 but still had persistent bandemia. I do not think that she has underlying bone marrow disorder. 2. Anemia, likely due to sepsis and transient bone marrow suppression, no evidence of bleeding. 3. Sepsis. She likely has acute pyelonephritis. Workup for cholecystitis so far is unremarkable. She also possibly had a viral infection and infectious disease is in the process of ruling out meningitis. RECOMMENDATIONS 1. Continue to monitor CBC. 2. I anticipate her leukocytosis to improve once infection is controlled. 3. Continue workup and management of infection per infectious disease. Thank you Dr. Crow for asking me to see this patient. MD EMILY Arcos/CARI /12:32 PM /12:45 PM MADAN
--- NOTE | 2017-05-25 13:41 | PD.RAD ---
Post Procedure Progress Note Pre Procedure Diagnosis: (1) Meningitis Post Procedure Diagnosis: (1) Meningitis Procedure Date: May 25, 2017 Supervising Radiologist: Otilio Lozano Proceduralist/Assist: RT Hammad(R), RT Pavel(R) Anesthesia: Local Plan of Activity Patient to Unit: Nursing Unit Patient Condition: Good See PACS Report for procedural detail/treatment Spinal Procedure Lumbar Puncture L2-L3 Fluid Removal (CCs): 8 Fluid Description: Otilio Phillips MD May 25, 2017 13:41
--- NOTE | 2017-05-25 14:15 | RADRPT ---
EXAM DATE/TIME: 05/25/2017 13:39 [facility] COMPARISON: No previous studies available for comparison. INDICATIONS : Patient with history of meningitis in need of lumbar puncture. MEDICAL HISTORY : Headache, Endometriosis, Nonalcoholic fatty liver disease in 2007, Meningitis SURGICAL HISTORY : Bowel resection, Appendectomy, X3 ENCOUNTER: Initial ACUITY: 4 -6 days PAIN SCORE: 5/10 LOCATION: Head, neck, and upper abdomen LUMBAR PUNCTURE TIME: 1333 hours FLUORO TIME: 0.38 minutes IMAGE SERIES: 0 ACCESS LEVEL: L3-4 FLUID: 8 cc of clear CSF was collected and sent to the laboratory for analysis. PROCEDURE : 1. Fluoroscopic guided lumbar puncture. The risks, benefits and alternatives to the procedure were explained and verbal and written consent w as obtained. The site was prepped in sterile fashion. Full sterile technique was used, including ca p, mask, sterile gloves and gown and a large sterile sheet. Hand hygiene and 2% chlorhexidine and/or betadine/alcohol prep was utilized per protocol for cutaneous antisepsis. The skin and subcutaneous tissues were infiltrated with local anesthetic solution. With fluoroscopic guidance the lumbar thecal sac was punctured at the level above. The fluid describ ed above was removed without difficulty. The patient tolerated the procedure well and there were no complications. CONCLUSION: Uncomplicated fluoroscopically guided lumbar puncture. Otilio Lozano MD on May 25, 2017 at 14:13 Board Certified Radiologist. This report was verified electronically.
--- NOTE | 2017-05-25 14:20 | EKG ---
Date Performed: 05/24/2017 Time Performed: 21:54:28 PTAGE: 37 years EKG: SINUS TACHYCARDIA NONSPECIFIC T-WAVE ABNORMALITY ABNORMAL RHYTHM ECG T-wave flattening is n ew since prior tracing Clinical correlation is recommended PREVIOUS TRACING : 12/22/2016 19.55 DOCTOR: Chicho Maria Interpretating Date/Time 05/25/2017 14:18:45
[2017-05-25 14:36] LABS: TOTAL PROTEIN,CSF 24.6 MG/DL (15.0-45.0)
[2017-05-25 14:47] LABS: SUPERNATE COLOR TUBE #1 CLEAR (CLEAR)
[2017-05-25 14:48] LABS: CSF LYMPHOCYTES 60 %; CSF MONOCYTES 40 %; CSF NEUTROPHILS 0 %; RBC TUBE #4 0 /MM3; WBC TUBE #4 2 /MM3 (0-10)
--- NOTE | 2017-05-25 15:05 | RADRPT ---
EXAM DATE/TIME: 05/25/2017 14:18 [facility] COMPARISON: CHEST SINGLE AP, May 24, 2017, 22:05. INDICATIONS : Shortness of breath, chest pain. MEDICAL HISTORY : Endometriosis. SURGICAL HISTORY : Appendectomy. Tubal ligation. section. Bowel resection. ENCOUNTER: Subsequent ACUITY: 2 days PAIN SCORE: 3/10 LOCATION: chest midline. FINDINGS: Examination of the chest demonstrates the heart and mediastinum to be normal. The lungs are free of p arenchymal opacity. No effusions are identified. Osseous structures are intact. CONCLUSION: No acute cardiopulmonary disease. Otilio Lozano MD on May 25, 2017 at 15:04 Board Certified Radiologist. This report was verified electronically.
[2017-05-25] MEDS ORDERED: SODIUM BICARBONATE 650 MG TAB PO ONE (18:45)
[2017-05-25] MEDS: D5-NS + KCL 20 MEQ INJ 1,000 ML IV SCH (20:31)
[2017-05-25] MEDS ORDERED: VANCOMYCIN 1,500 MG/NS 500 ML IV SCH ×2 (23:00)
[2017-05-26] VITALS (7 sets, daily range): BP systolic 114–121; BP diastolic 59–69; PULSE 78–110; RESP 16–20; TEMP 97.1–99.8; O2SAT 94–98
[2017-05-26 00:21] LABS: BICARBONATE 20.1 MEQ/L (21.0-32.0); CALCIUM 7.8 MG/DL (8.5-10.1); CREATININE 0.98 MG/DL (0.50-1.00)
[2017-05-26] MEDS: HYDROmorphone HCL PF 0.5 MG/0.5 ML SYRINGE IV PUSH PRN ×6 (00:44→21:47)
[2017-05-26] MEDS: D5-NS + KCL 20 MEQ INJ 1,000 ML IV SCH ×3 (02:45→16:05)
[2017-05-26] MEDS: metroNIDAZOLE 500 MG INJ 100 ML IV SCH ×2 (03:46→08:16)
[2017-05-26] MEDS: AZTREONAM INJ 2,000 MG in SODIUM CHLORIDE 0.9% INJ 100 ML IV SCH ×3 (03:46→17:20)
[2017-05-26 06:27] LABS: AUTOMATED NEUTROPHIL # 20.8 TH/MM3 (1.8-7.7); BASOPHIL # 0.1 TH/MM3 (0-0.2); BASOPHIL % 0.4 % (0.0-2.0); EOSINOPHIL # 0.1 TH/MM3 (0-0.4); EOSINOPHIL % 0.3 % (0.0-4.0); HEMATOCRIT 26.5 % (35.0-46.0); HEMOGLOBIN 8.9 GM/DL (11.6-15.3); LYMPH % 9.7 % (9.0-44.0); LYMPHOCYTE # 2.4 TH/MM3 (1.0-4.8); MEAN CELL VOLUME 91.3 FL (80.0-100.0); MEAN CORPUSCULAR HEMOGLOBIN 30.6 PG (27.0-34.0); MEAN CORPUSCULAR HGB CONC 33.6 % (32.0-36.0); MEAN PLATELET VOLUME 6.6 FL (7.0-11.0); MONO % 6.3 % (0.0-8.0); MONOCYTE # 1.6 TH/MM3 (0-0.9); NEUT % 83.3 % (16.0-70.0); PLATELET COUNT 358 TH/MM3 (150-450); RED CELL DISTRIBUTION WIDTH 13.2 % (11.6-17.2)
[2017-05-26 07:05] LABS: ALBUMIN 1.7 GM/DL (3.4-5.0); AST (GOT) 16 U/L (15-37); BICARBONATE 20.9 MEQ/L (21.0-32.0); BLOOD UREA NITROGEN 16 MG/DL (7-18); CALCIUM 8.2 MG/DL (8.5-10.1); CHLORIDE 107 MEQ/L (98-107); CREATININE 0.95 MG/DL (0.50-1.00); GLOMERULAR FILTRATION RATE 67 ML/MIN (>89); GLUCOSE,RANDOM 74 MG/DL (74-106); MAGNESIUM 2.5 MG/DL (1.5-2.5); SODIUM (NA) 138 MEQ/L (136-145)
[2017-05-26 07:07] LABS: ALT (GPT) 18 U/L (10-53)
[2017-05-26 07:09] LABS: ALKALINE PHOSPHATASE 270 U/L (45-117); TOTAL BILIRUBIN ADULT 2.1 MG/DL (0.2-1.0)
[2017-05-26 07:51] LABS: BANDS 12 % (0-6); LYMPHOCYTES 6 % (9-44); METAMYELOCYTES 1 % (0-1); MONOCYTES 4 % (0-8); NEUTROPHIL # MANUAL DIFF 22.5 TH/MM3 (1.8-7.7); POLYS (SEG NEUTROPHILS) 77 % (16-70)
[2017-05-26] MEDS: FLUCONAZOLE 200 MG TAB PO SCH (08:14)
[2017-05-26] MEDS: DOCUSATE SODIUM 50 MG/SENNA 8.6 MG TAB PO SCH ×2 (08:14→20:52)
[2017-05-26] MEDS: NYSTAT/DIPHENHY/LIDO MOUTHWASH (Adult) 120ML SWISH-SWAL SCH ×4 (08:15→20:52)
[2017-05-26] MEDS: SODIUM CHLORIDE 0.9% FLUSH 10 ML FLUSH IV FLUSH SCH ×2 (08:19→20:52)
[2017-05-26 09:11] LABS: HSV 1,PCR Negative (Negative)
[2017-05-26] MEDS ORDERED: POTASSIUM CHLORIDE 10 MEQ CONTROLLED RELEASE TAB PO ONE (09:30)
[2017-05-26] MEDS ORDERED: INFLUENZA VIRUS VACCINE (QUADRIVALENT) 0.5 ML SYR IM ONE (10:00)
[2017-05-26] MEDS ORDERED: PNEUMOCOCCAL POLYVALENT INJ 25 MCG/0.5 ML SYR IM ONE (10:00)
--- NOTE | 2017-05-26 11:07 | HHI.PR ---
Subjective Subjective Notes She feels slightly improved. Still having abdominal pain and overall feeling poorly. Intermittent fevers, tachycardia. Denies dysuria. Objective Vitals/I&O Vital Signs Date Time Temp Pulse Resp B/P (MAP) Pulse Ox O2 Delivery O2 Flow Rate FiO2 05/26/17 08:00 99.7 101 17 116/59 (78) 94 05/24/17 20:32 Room Air Labs Laboratory Tests Test 05/25/17 13:33 05/25/17 18:50 05/25/17 23:39 05/26/17 05:57 CSF Volume (Tube 1) 1.0 CSF Supernatant Color (tube 1) CLEAR CSF Gross Blood (Tube 1) 0 CSF Volume (Tube 2) 2.0 CSF Supernatant Color (tube 2) CLEAR CSF Gross Blood (Tube 2) 0 CSF Volume (Tube 3) 2.0 CSF Supernatant Color (tube 3) CLEAR CSF Gross Blood (Tube 3) 0 CSF Volume (Tube 4) 2.0 CSF Supernatant Color (tube 4) CLEAR CSF Gross Blood (Tube 4) 0 CSF WBC (Tube 4) 2 CSF RBC (Tube 4) 0 CSF Neutrophils 0 CSF Lymphocytes 60 CSF Monocytes 40 CSF Glucose 49 CSF Total Protein 24.6 Herpes Simplex Virus I DNA (PCR) Negative Herpes Simplex Virus II DNA (PCR) Negative Lactic Acid Level 0.7 Blood Urea Nitrogen 15 16 Creatinine 0.98 0.95 Random Glucose 67 74 Calcium Level 7.8 8.2 Sodium Level 141 138 Potassium Level 3.5 3.1 Chloride Level 107 107 Carbon Dioxide Level 20.1 20.9 Anion Gap 14 10 Estimat Glomerular Filtration Rate 65 67 White Blood Count 25.0 Red Blood Count 2.90 Hemoglobin 8.9 Hematocrit 26.5 Mean Corpuscular Volume 91.3 Mean Corpuscular Hemoglobin 30.6 Mean Corpuscular Hemoglobin Concent 33.6 Red Cell Distribution Width 13.2 Platelet Count 358 Mean Platelet Volume 6.6 Neutrophils (%) (Auto) 83.3 Lymphocytes (%) (Auto) 9.7 Monocytes (%) (Auto) 6.3 Eosinophils (%) (Auto) 0.3 Basophils (%) (Auto) 0.4 Neutrophils # (Auto) 20.8 Lymphocytes # (Auto) 2.4 Monocytes # (Auto) 1.6 Eosinophils # (Auto) 0.1 Basophils # (Auto) 0.1 CBC Comment AUTO DIFF Differential Total Cells Counted 100 Neutrophils % (Manual) 77 Band Neutrophils % 12 Lymphocytes % 6 Monocytes % 4 Neutrophils # (Manual) 22.5 Metamyelocytes 1 Differential Comment FINAL DIFF MANUAL Platelet Estimate NORMAL Platelet Morphology Comment NORMAL Red Cell Morphology Comment NORMAL Total Protein 6.0 Albumin 1.7 Magnesium Level 2.5 Alkaline Phosphatase 270 Aspartate Amino Transf (AST/SGOT) 16 Alanine Aminotransferase (ALT/SGPT) 18 Total Bilirubin 2.1 Date/Time Source Procedure Growth Status 05/24/17 23:00 Blood Peripheral Aerobic Blood Culture Pending Resulted 05/24/17 23:00 Anaerobic Blood Culture - Preliminary Gram Negative Kahlil Resulted 05/25/17 13:33 Cerebral Spinal Fluid Lumbar Puncture Gram Stain - Final Resulted 05/25/17 13:33 Cerebral Spinal Fluid Lumbar Puncture CSF Culture - Preliminary NO GROWTH IN 24 HOURS. Resulted 05/24/17 22:07 Throat Group A Streptococcus Screen - Final NO GP A BETA STREP ISOLATED. Complete 05/25/17 01:30 Urine Clean Catch Urine Culture Pending Received Radiology CT images reviewed Please see report of ultrasound and CT abdomen and pelvis Narrative Exam Awake and alert, no distress Abd: moderate distention, diffuse ttp with rebound in RUQ A/P Assessment and Plan 37-year-old female with severe sepsis. She has severe leukocytosis, acute kidney injury, elevation of bilirubin and alkaline phosphatase. She has hepatosplenomegaly with periportal edema and gallbladder wall thickening. No gallstones are present. MRCP yesterday showed unremarkable gallbladder, no biliary obstruction, hepatosplenomegaly, and apparent right sided pyelonephritis. She appears to have pyelonephritis. I am unsure why her abdominal pain and tenderness is quite this severe but it does not appear it is biliary related or that there is any other surgical problem. From my standpoint she can have a diet and advance as tolerated. I will sign off. Please call if any surgical concerns. JoshWilman MD May 26, 2017 11:07
--- NOTE | 2017-05-26 11:34 | PD.ONC.PN ---
Subjective Subjective Remarks Tmax 100.6 overnight. Patient resting in bed with mother at bedside. Feeling fatigued. complaining of continued pain in RUQ. Objective Data Date Time Temp Pulse Resp B/P (MAP) Pulse Ox O2 Delivery O2 Flow Rate FiO2 05/26/17 08:00 99.7 101 17 116/59 (78) 94 05/26/17 04:04 99.8 110 20 117/62 (80) 98 05/25/17 23:43 100.6 109 18 103/59 (74) 99 05/25/17 20:21 99.0 102 17 108/58 (75) 94 05/25/17 20:14 111 05/25/17 17:47 100.2 05/25/17 16:30 100.5 05/25/17 16:00 100.8 126 18 115/60 (78) 95 05/25/17 14:30 98.3 116 17 107/62 (77) 96 05/25/17 11:51 96.4 111 24 109/61 (77) 93 05/26/17 05/26/17 05/26/17 07:00 15:00 23:00 Intake Total 1800 ml 200 ml Output Total 1400 ml Balance 400 ml 200 ml Result Diagram: 05/26/17 0557 05/26/17 0557 Laboratory Results Laboratory Tests Test 05/25/17 13:33 05/25/17 18:50 05/25/17 23:39 05/26/17 05:57 CSF Volume (Tube 1) 1.0 ML CSF Supernatant Color (tube 1) CLEAR CSF Gross Blood (Tube 1) 0 CSF Volume (Tube 2) 2.0 ML CSF Supernatant Color (tube 2) CLEAR CSF Gross Blood (Tube 2) 0 CSF Volume (Tube 3) 2.0 ML CSF Supernatant Color (tube 3) CLEAR CSF Gross Blood (Tube 3) 0 CSF Volume (Tube 4) 2.0 ML CSF Supernatant Color (tube 4) CLEAR CSF Gross Blood (Tube 4) 0 CSF WBC (Tube 4) 2 /MM3 CSF RBC (Tube 4) 0 /MM3 CSF Neutrophils 0 % CSF Lymphocytes 60 % CSF Monocytes 40 % CSF Glucose 49 MG/DL CSF Total Protein 24.6 MG/DL Herpes Simplex Virus I DNA (PCR) Negative Herpes Simplex Virus II DNA (PCR) Negative Lactic Acid Level 0.7 mmol/L Blood Urea Nitrogen 15 MG/DL 16 MG/DL Creatinine 0.98 MG/DL 0.95 MG/DL Random Glucose 67 MG/DL 74 MG/DL Calcium Level 7.8 MG/DL 8.2 MG/DL Sodium Level 141 MEQ/L 138 MEQ/L Potassium Level 3.5 MEQ/L 3.1 MEQ/L Chloride Level 107 MEQ/L 107 MEQ/L Carbon Dioxide Level 20.1 MEQ/L 20.9 MEQ/L Anion Gap 14 MEQ/L 10 MEQ/L Estimat Glomerular Filtration Rate 65 ML/MIN 67 ML/MIN White Blood Count 25.0 TH/MM3 Red Blood Count 2.90 MIL/MM3 Hemoglobin 8.9 GM/DL Hematocrit 26.5 % Mean Corpuscular Volume 91.3 FL Mean Corpuscular Hemoglobin 30.6 PG Mean Corpuscular Hemoglobin Concent 33.6 % Red Cell Distribution Width 13.2 % Platelet Count 358 TH/MM3 Mean Platelet Volume 6.6 FL Neutrophils (%) (Auto) 83.3 % Lymphocytes (%) (Auto) 9.7 % Monocytes (%) (Auto) 6.3 % Eosinophils (%) (Auto) 0.3 % Basophils (%) (Auto) 0.4 % Neutrophils # (Auto) 20.8 TH/MM3 Lymphocytes # (Auto) 2.4 TH/MM3 Monocytes # (Auto) 1.6 TH/MM3 Eosinophils # (Auto) 0.1 TH/MM3 Basophils # (Auto) 0.1 TH/MM3 CBC Comment AUTO DIFF Differential Total Cells Counted 100 Neutrophils % (Manual) 77 % Band Neutrophils % 12 % Lymphocytes % 6 % Monocytes % 4 % Neutrophils # (Manual) 22.5 TH/MM3 Metamyelocytes 1 % Differential Comment FINAL DIFF MANUAL Platelet Estimate NORMAL Platelet Morphology Comment NORMAL Red Cell Morphology Comment NORMAL Total Protein 6.0 GM/DL Albumin 1.7 GM/DL Magnesium Level 2.5 MG/DL Alkaline Phosphatase 270 U/L Aspartate Amino Transf (AST/SGOT) 16 U/L Alanine Aminotransferase (ALT/SGPT) 18 U/L Total Bilirubin 2.1 MG/DL Culture Results Microbiology Date/Time Source Procedure Growth Status 05/24/17 23:00 Blood Peripheral Aerobic Blood Culture - Preliminary NO GROWTH IN 1 DAY Resulted 05/24/17 23:00 Anaerobic Blood Culture - Preliminary Gram Negative Kahlil Resulted 05/24/17 23:00 Blood Peripheral Aerobic Blood Culture - Preliminary NO GROWTH IN 1 DAY Resulted 05/24/17 23:00 Anaerobic Blood Culture - Preliminary Gram Negative Kahlil Resulted 05/25/17 13:33 Cerebral Spinal Fluid Lumbar Puncture Gram Stain - Final Resulted 05/25/17 13:33 Cerebral Spinal Fluid Lumbar Puncture CSF Culture - Preliminary NO GROWTH IN 24 HOURS. Resulted 05/24/17 22:07 Throat Group A Streptococcus Screen - Final NO GP A BETA STREP ISOLATED. Complete 05/24/17 22:07 Nasal Aspirate Influenza Types A,B Antigen (KEVEN) - Final NEGATIVE FOR FLU A AND B ANTIGEN.... Complete 05/24/17 22:07 Throat Group A Streptococcus Screen (KEVEN) - Final Complete 05/25/17 01:30 Urine Clean Catch Urine Culture Pending Received Administered Medications Medications (Trade) Dose Ordered Sig/Ivelisse Route PRN Reason Start Time Stop Time Status Last Admin Dose Admin Sodium Chloride (NS Flush) 2 ml BID IV FLUSH 05/25/17 09:00 05/25/17 20:31 Zolpidem Tartrate (Ambien) 5 mg HS PRN PO INSOMNIA 05/25/17 03:15 05/25/17 20:39 Senna/Docusate Sodium (Rachelle-Colace) 1 tab BID PO 05/25/17 09:00 05/26/17 08:14 Hydromorphone HCl (Dilaudid Pf Inj) 0.5 mg Q4H PRN IV PUSH pain 6-10 05/25/17 03:15 05/26/17 09:04 Fluconazole (Diflucan) 200 mg DAILY PO 05/25/17 09:00 05/26/17 08:14 Multi-Ingredient Mouthwash/Gargle (Magic Mouthwash Adult Liq) 10 ml QID SWISH-SWAL 05/25/17 09:00 05/25/17 14:02 Aztreonam 2000 mg/ Sodium Chloride 100 ml @ 200 mls/hr Q8H IV 05/25/17 10:00 05/26/17 08:16 Metronidazole 100 ml @ 100 mls/hr Q6H IV 05/25/17 09:00 05/26/17 08:16 Acetaminophen (Tylenol) 650 mg Q4H PRN PO FEVER 05/25/17 09:00 05/25/17 16:28 Vancomycin HCl 1500 mg/Sodium Chloride 515 ml @ 257.5 mls/ hr Q24H IV 05/25/17 23:00 05/25/17 23:33 Potassium Chloride/Dextrose/ Sod Cl 1,000 ml @ 125 mls/hr Q8H IV 05/25/17 18:45 05/25/17 20:31 Objective Remarks GENERAL: Young woman, lying supine in bed, appears fatigued. SKIN: Warm and dry. HEAD: Normocephalic. EYES: No injection or drainage. NECK: Supple, trachea midline. CARDIOVASCULAR: Regular rate and rhythm RESPIRATORY: Breath sounds equal bilaterally. No accessory muscle use. GASTROINTESTINAL: Abdomen soft, +TTP RUQ, nondistended. EXTREMITIES: No cyanosis NEUROLOGICAL: No obvious focal deficit. Awake, alert, and oriented x3. Assessment/Plan Problem List: (1) Leukocytosis ICD Codes: D72.829 - Elevated white blood cell count, unspecified Plan: --anticipate her leukocytosis to improve once infection is controlled. --Leukocytosis with predominant neutrophils and bandemia. --also toxic granulation and toxic vacuolation consistent with leukemoid reaction due to underlying infection. --do not think that she has underlying bone marrow disorder. (2) Normocytic anemia ICD Codes: D64.9 - Anemia, unspecified Plan: --likely due to sepsis and transient bone marrow suppression, no evidence of bleeding. (3) Sepsis ICD Codes: A41.9 - Sepsis, unspecified organism Plan: --on antibiotics per ID --BC +GNR --likely has acute pyelonephritis. --Workup for cholecystitis so far is unremarkable. --also possibly had a viral infection and infectious disease is in the process of ruling out meningitis. Assessment 37y/o female with history of endometriosis and fatty liver, presented to the hospital with complaint of fatigue, sore throat, abdominal pain. She stated last she started having sore throat and fatigue. She had dysphagia. She has intermittent fever up to 101. She started having severe abdominal pain about 2 days prior to admission. She also had some burning sensation when she urinated last Monday. When she came to the hospital she was found to be tachycardic. She was also noted to have leukocytosis, white blood cell count 43 ,000. Hematology was consulted for further evaluation. Plan 1. antibiotics per infectious disease 2. we do not think she has an underlying bone marrow disorder 3. continue supportive care Attending Statement The exam, history, and the medical decision-making described in the above note were completed with the assistance of the mid-level provider. I reviewed and agree with the findings presented. I attest that I had a [id number] encounter with the patient on the same day, and personally performed and documented my assessment and findings in the medical record. Still febrile. Feeling slightly better. WBC trended lower. Leukocytosis due to acute pyelonephritis. No apparent bone marrow disorder. Continue abx per ID. Elisha Reyna May 26, 2017 11:34 Gerry Ruiz MD May 26, 2017 16:18
--- NOTE | 2017-05-26 13:42 | HHI.PR ---
Subjective Remarks Tolerating a diet. Abdominal pain is slightly improved. Feeling better overall. Objective Vitals Vital Signs Date Time Temp Pulse Resp B/P (MAP) Pulse Ox O2 Delivery O2 Flow Rate FiO2 05/26/17 12:10 98 05/26/17 12:00 97.1 78 16 114/64 (81) 97 05/26/17 08:00 99.7 101 17 116/59 (78) 94 05/26/17 04:04 99.8 110 20 117/62 (80) 98 05/25/17 23:43 100.6 109 18 103/59 (74) 99 05/25/17 20:21 99.0 102 17 108/58 (75) 94 05/25/17 20:14 111 05/25/17 17:47 100.2 05/25/17 16:30 100.5 05/25/17 16:00 100.8 126 18 115/60 (78) 95 05/25/17 14:30 98.3 116 17 107/62 (77) 96 I/O 05/25/17 05/25/17 05/25/17 05/26/17 05/26/17 05/26/17 07:00 15:00 23:00 07:00 15:00 23:00 Intake Total 1200 ml 1409 ml 1800 ml 200 ml Output Total 800 ml 1400 ml Balance 1200 ml 609 ml 400 ml 200 ml Intake Oral 0 ml IV Total 1200 ml 1409 ml 1800 ml 200 ml Output Urine Total 800 ml 1400 ml # Voids 1 # Bowel Movements 0 Result Diagram: 05/26/17 0557 05/26/17 0557 Objective Remarks GENERAL: Appear to be in some discomfort CARDIOVASCULAR: Regular rate and rhythm. RESPIRATORY: No accessory muscle use. Clear to auscultation. Breath sounds equal bilaterally. GASTROINTESTINAL: Abdomen soft, diffusely tender to minimal palpation. No rebound tenderness. MUSCULOSKELETAL: Extremities without clubbing, cyanosis, or edema. No obvious deformities. NEUROLOGICAL: Awake and alert. Normal speech. PSYCHIATRIC: Appropriate mood and affect; insight and judgment normal. A/P Assessment and Plan 37-year-old female with past medical history of endometriosis presents to the emergency department with a 6 day history of generalized malaise, extreme abdominal pain nausea and vomiting. Patient is septic and bacteremic secondary to UTI Sepsis secondary to UTI/Bacteremia: Urine growing gram neg shan. Patient had complaints concerning for meningitis. S/P LP CSF neg. - Appreciate ID following - Continue on Azactam. Cipro added - Follow blood and urine cultures - Continue IVF Severe abdominal pain CT of the abdomen/pelvis significant for hepatosplenomegaly and gallbladder wall thickening. Ultrasound of the gallbladder also showed nonspecific thickening. - Continue with pain control. Marked leukocytosis: -Secondary to Pyelonephritis. - Patient evaluated by Hematology. No apparent bone marrow disorder - Continue to treat with antibiotics as above. Gini Stein MD May 26, 2017 13:42
--- NOTE | 2017-05-26 14:25 | HHI.IDPN ---
Note Infectious Disease Note Patient feels a little better but is still having chills. No nausea. less HERNANDEZ. Had little sleep last night because of being awakened for vitals etc. Still having abdominal pain. Temp lower. WBC still elevated. CSF unremarkable. Blood culture has gram negative kahlil. On presentation the patient's heart rate was 131. PAST MEDICAL HISTORY 1. Endometriosis. 2. Appendectomy. 3. Bowel resection. 4. x3. ALLERGIES PENICILLIN CAUSED THE PATIENT TO BECOME HYPER. CODEINE. PROMETHAZINE. MEDICATIONS 1. Vancomycin. 2. Aztreonam. 3. Fluconazole. 4. Metronidazole. SOCIAL HISTORY The patient smokes a pack of cigarettes a day. Occasional alcohol. Denies illicit drugs. The patient has three children who are in good health. OBJECTIVE: Vital Signs Date Time Temp Pulse Resp B/P (MAP) Pulse Ox O2 Delivery O2 Flow Rate FiO2 05/26/17 12:10 98 05/26/17 12:00 97.1 78 16 114/64 (81) 97 05/26/17 08:00 99.7 101 17 116/59 (78) 94 05/26/17 04:04 99.8 110 20 117/62 (80) 98 05/25/17 23:43 100.6 109 18 103/59 (74) 99 05/25/17 20:21 99.0 102 17 108/58 (75) 94 05/25/17 20:14 111 05/25/17 17:47 100.2 05/25/17 16:30 100.5 05/25/17 16:00 100.8 126 18 115/60 (78) 95 05/25/17 14:30 98.3 116 17 107/62 (77) 96 Laboratory Tests Test 05/24/17 22:03 05/25/17 09:32 05/26/17 05:57 White Blood Count 43.3 TH/MM3 37.4 TH/MM3 25.0 TH/MM3 Red Blood Count 3.66 MIL/MM3 3.24 MIL/MM3 2.90 MIL/MM3 Hemoglobin 11.5 GM/DL 9.9 GM/DL 8.9 GM/DL Hematocrit 33.1 % 29.2 % 26.5 % Mean Corpuscular Volume 90.4 FL 90.1 FL 91.3 FL Mean Corpuscular Hemoglobin 31.3 PG 30.4 PG 30.6 PG Mean Corpuscular Hemoglobin Concent 34.6 % 33.8 % 33.6 % Red Cell Distribution Width 13.6 % 13.7 % 13.2 % Platelet Count 376 TH/MM3 376 TH/MM3 358 TH/MM3 Mean Platelet Volume 6.7 FL 6.5 FL 6.6 FL Neutrophils (%) (Auto) 89.3 % 89.0 % 83.3 % Lymphocytes (%) (Auto) 4.8 % 4.5 % 9.7 % Monocytes (%) (Auto) 5.3 % 6.1 % 6.3 % Eosinophils (%) (Auto) 0.5 % 0.1 % 0.3 % Basophils (%) (Auto) 0.1 % 0.3 % 0.4 % Neutrophils # (Auto) 38.6 TH/MM3 33.3 TH/MM3 20.8 TH/MM3 Lymphocytes # (Auto) 2.1 TH/MM3 1.7 TH/MM3 2.4 TH/MM3 Monocytes # (Auto) 2.3 TH/MM3 2.3 TH/MM3 1.6 TH/MM3 Eosinophils # (Auto) 0.2 TH/MM3 0.1 TH/MM3 0.1 TH/MM3 Basophils # (Auto) 0.1 TH/MM3 0.1 TH/MM3 0.1 TH/MM3 CBC Comment AUTO DIFF AUTO DIFF AUTO DIFF Differential Total Cells Counted 100 100 100 Neutrophils % (Manual) 81 % 70 % 77 % Band Neutrophils % 9 % 14 % 12 % Lymphocytes % 5 % 7 % 6 % Monocytes % 5 % 8 % 4 % Neutrophils # (Manual) 39.0 TH/MM3 31.8 TH/MM3 22.5 TH/MM3 Differential Comment FINAL DIFF MANUAL FINAL DIFF MANUAL FINAL DIFF MANUAL Toxic Granulation 1+ 1+ Toxic Vacuolation PRESENT Dohle Bodies PRESENT PRESENT Platelet Estimate NORMAL NORMAL NORMAL Platelet Morphology Comment NORMAL NORMAL NORMAL Red Cell Morphology Comment NORMAL NORMAL Myelocytes 1 % Blood Smear Pathologist Review Metamyelocytes 1 % Laboratory Tests Test 05/24/17 22:03 05/25/17 09:32 05/25/17 18:50 05/25/17 23:39 Blood Urea Nitrogen 16 MG/DL 14 MG/DL 15 MG/DL Creatinine 1.82 MG/DL 1.30 MG/DL 0.98 MG/DL Random Glucose 61 MG/DL 75 MG/DL 67 MG/DL Total Protein 7.6 GM/DL 6.8 GM/DL Albumin 2.4 GM/DL 2.0 GM/DL Calcium Level 8.8 MG/DL 8.1 MG/DL 7.8 MG/DL Alkaline Phosphatase 264 U/L 236 U/L Aspartate Amino Transf (AST/SGOT) 26 U/L 38 U/L Alanine Aminotransferase (ALT/SGPT) 29 U/L 21 U/L Total Bilirubin 2.0 MG/DL 1.9 MG/DL Direct Bilirubin 1.3 MG/DL Sodium Level 138 MEQ/L 137 MEQ/L 141 MEQ/L Potassium Level 4.0 MEQ/L 3.6 MEQ/L 3.5 MEQ/L Chloride Level 100 MEQ/L 105 MEQ/L 107 MEQ/L Carbon Dioxide Level 24.8 MEQ/L 18.9 MEQ/L 20.1 MEQ/L Anion Gap 13 MEQ/L 13 MEQ/L 14 MEQ/L Estimat Glomerular Filtration Rate 32 ML/MIN 47 ML/MIN 65 ML/MIN Lactic Acid Level 1.6 mmol/L 0.7 mmol/L Indirect Bilirubin 0.7 MG/DL Troponin I LESS THAN 0.02 NG/ML Lipase 34 U/L Test 05/26/17 05:57 Blood Urea Nitrogen 16 MG/DL Creatinine 0.95 MG/DL Random Glucose 74 MG/DL Total Protein 6.0 GM/DL Albumin 1.7 GM/DL Calcium Level 8.2 MG/DL Magnesium Level 2.5 MG/DL Alkaline Phosphatase 270 U/L Aspartate Amino Transf (AST/SGOT) 16 U/L Alanine Aminotransferase (ALT/SGPT) 18 U/L Total Bilirubin 2.1 MG/DL Sodium Level 138 MEQ/L Potassium Level 3.1 MEQ/L Chloride Level 107 MEQ/L Carbon Dioxide Level 20.9 MEQ/L Anion Gap 10 MEQ/L Estimat Glomerular Filtration Rate 67 ML/MIN Microbiology Date/Time Source Procedure Growth Status 05/24/17 23:00 Blood Peripheral Aerobic Blood Culture - Preliminary NO GROWTH IN 1 DAY Resulted 05/24/17 23:00 Anaerobic Blood Culture - Preliminary Gram Negative Kahlil Resulted 05/24/17 23:00 Blood Peripheral Aerobic Blood Culture - Preliminary NO GROWTH IN 1 DAY Resulted 05/24/17 23:00 Anaerobic Blood Culture - Preliminary Gram Negative Kahlil Resulted 05/25/17 13:33 Cerebral Spinal Fluid Lumbar Puncture Gram Stain - Final Resulted 05/25/17 13:33 Cerebral Spinal Fluid Lumbar Puncture CSF Culture - Preliminary NO GROWTH IN 24 HOURS. Resulted 05/24/17 22:07 Throat Group A Streptococcus Screen - Final NO GP A BETA STREP ISOLATED. Complete 05/24/17 22:07 Nasal Aspirate Influenza Types A,B Antigen (KEVEN) - Final NEGATIVE FOR FLU A AND B ANTIGEN.... Complete 05/24/17 22:07 Throat Group A Streptococcus Screen (KEVEN) - Final Complete 05/25/17 01:30 Urine Clean Catch Urine Culture - Preliminary Gram Negative Kahlil Resulted PHYSICAL EXAMINATION GENERAL: No acute distress. Looks tired. HEENT: The head is atraumatic. The face is hyperemic. Extraocular movements grossly intact, pupils reactive to light. No icterus. No conjunctival erythema. Oropharynx moist mucosa. No thrush. No visible lesions. The uvula is midline. NECK: Supple with shotty anterior cervical adenopathy which is tender on palpation. LUNGS: Clear to auscultation. HEART: Regular, S1 and S2 without audible murmurs, rubs or gallops. ABDOMEN: Distended, soft, tenderness on palpation of the right lower abdomen and also tenderness at the right flank. EXTREMITIES: No clubbing or cyanosis or edema. SKIN: less pronounced macular rash at the neck, chest, arms and to a lesser degree at the legs. NEURO: No gross focal findings. Cranial nerves intact. PSYCHIATRIC: The patient is calm and cooperative.. IMPRESSION 1. Sepsis. Gram negative kahlil. ID and sensitivity pending. 2. Acute pyelonephritis. 3. Fever and headache. CSF negative for meningitis. 4. Acute kidney disease. 5. UTI gram neg kahlil. RECOMMENDATIONS 1. Continue aztreonam. 2. Monitor blood cultures. 3. Stop vancomycin. 4. Stop metronidazole. 5. Stop fluconazole. 6. Add Cipro while awaiting sensitivity. 7. Monitor temp and WBC. Ajay Lambert MD May 26, 2017 14:25
[2017-05-26] MEDS: CIPROFLOXACIN 400 MG PREMIX 200 ML IV SCH (16:06)
[2017-05-26] MEDS: ZOLPIDEM TARTRATE 5 MG TAB PO PRN (21:47)
[2017-05-27] VITALS: BP 118/64; PULSE 76; RESP 17; TEMP 98; O2SAT 98
[2017-05-27] MEDS: AZTREONAM INJ 2,000 MG in SODIUM CHLORIDE 0.9% INJ 100 ML IV SCH ×3 (02:08→16:27)
[2017-05-27] MEDS: HYDROmorphone HCL PF 0.5 MG/0.5 ML SYRINGE IV PUSH PRN ×5 (02:08→21:20)
[2017-05-27] MEDS: D5-NS + KCL 20 MEQ INJ 1,000 ML IV SCH ×4 (02:08→23:45)
[2017-05-27] MEDS: CIPROFLOXACIN 400 MG PREMIX 200 ML IV SCH ×2 (03:15→14:31)
[2017-05-27 08:00] VITALS: BP 107/57; PULSE 82; RESP 20; TEMP 99.2; O2SAT 95
[2017-05-27] MEDS: oxyCODONE/ACETAMINOPHEN 5 MG/325 MG TAB PO PRN ×4 (08:30→23:38)
[2017-05-27] MEDS: SODIUM CHLORIDE 0.9% FLUSH 10 ML FLUSH IV FLUSH SCH ×2 (08:31→21:19)
[2017-05-27] MEDS: NYSTAT/DIPHENHY/LIDO MOUTHWASH (Adult) 120ML SWISH-SWAL SCH ×4 (08:31→21:19)
[2017-05-27] MEDS: DOCUSATE SODIUM 50 MG/SENNA 8.6 MG TAB PO SCH ×2 (08:31→21:21)
--- NOTE | 2017-05-27 11:56 | HHI.PR ---
Subjective Remarks Patient reports persistent right flank and lower abdominal pain. Slightly improved compared to yesterday. Objective Vitals Vital Signs Date Time Temp Pulse Resp B/P (MAP) Pulse Ox O2 Delivery O2 Flow Rate FiO2 05/27/17 08:00 99.2 82 20 107/57 (74) 95 05/27/17 00:00 98.0 76 17 118/64 (82) 98 05/26/17 20:19 80 05/26/17 20:00 98.2 88 17 121/69 (86) 98 05/26/17 16:00 98.4 82 17 118/64 (82) 98 05/26/17 12:10 98 05/26/17 12:00 97.1 78 16 114/64 (81) 97 I/O 05/26/17 05/26/17 05/26/17 05/27/17 05/27/17 05/27/17 07:00 15:00 23:00 07:00 15:00 23:00 Intake Total 1800 ml 200 ml 2236 ml 1340 ml 220 ml Output Total 1400 ml 500 ml 1400 ml Balance 400 ml 200 ml 1736 ml -60 ml 220 ml Intake Oral 540 ml 240 ml 120 ml IV Total 1800 ml 200 ml 1696 ml 1100 ml 100 ml Output Urine Total 1400 ml 500 ml 1400 ml # Bowel Movements 1 Result Diagram: 05/26/17 0557 05/26/17 0557 Objective Remarks GENERAL: No acute distress CARDIOVASCULAR: Regular rate and rhythm. RESPIRATORY: No accessory muscle use. Clear to auscultation. Breath sounds equal bilaterally. GASTROINTESTINAL: Abdomen soft, diffusely tender to minimal palpation. No rebound tenderness. MUSCULOSKELETAL: Extremities without clubbing, cyanosis, or edema. No obvious deformities. NEUROLOGICAL: Awake and alert. Normal speech. PSYCHIATRIC: Appropriate mood and affect; insight and judgment normal. A/P Assessment and Plan 37-year-old female with past medical history of endometriosis presents to the emergency department with a 6 day history of generalized malaise, extreme abdominal pain nausea and vomiting. Patient is septic and bacteremic secondary to UTI Sepsis secondary to UTI/Bacteremia: Urine growing gram neg shan. Patient earlier had complaints concerning for meningitis. S/P LP CSF neg. - Appreciate ID following - Continue on Azactam. Cipro added - Follow blood and urine cultures over the weekend - Continue IVF Severe abdominal pain CT of the abdomen/pelvis significant for hepatosplenomegaly and gallbladder wall thickening. Ultrasound of the gallbladder also showed nonspecific thickening. - Continue with pain control. Marked leukocytosis: -Secondary to Pyelonephritis. - Patient evaluated by Hematology. No apparent bone marrow disorder - Continue to treat with antibiotics as above. Gini Stein MD May 27, 2017 11:56
[2017-05-27 12:00] VITALS: BP 111/61; PULSE 75; RESP 19; TEMP 96.9; O2SAT 95
[2017-05-27 16:00] VITALS: BP 117/69; PULSE 72; RESP 20; TEMP 98.4; O2SAT 98
--- NOTE | 2017-05-27 16:10 | HHI.GIFU ---
Subjective Remarks Still complaining of loin pain but no odynophagia Objective Vitals I&O Vital Signs Date Time Temp Pulse Resp B/P (MAP) Pulse Ox O2 Delivery O2 Flow Rate FiO2 05/27/17 12:00 96.9 75 19 111/61 (78) 95 05/27/17 08:00 99.2 82 20 107/57 (74) 95 05/27/17 00:00 98.0 76 17 118/64 (82) 98 05/26/17 20:19 80 05/26/17 20:00 98.2 88 17 121/69 (86) 98 I/O 05/26/17 05/26/17 05/26/17 05/27/17 05/27/17 05/27/17 07:00 15:00 23:00 07:00 15:00 23:00 Intake Total 1800 ml 200 ml 2236 ml 1340 ml 220 ml Output Total 1400 ml 500 ml 1400 ml Balance 400 ml 200 ml 1736 ml -60 ml 220 ml Intake Oral 540 ml 240 ml 120 ml IV Total 1800 ml 200 ml 1696 ml 1100 ml 100 ml Output Urine Total 1400 ml 500 ml 1400 ml # Bowel Movements 1 Laboratory Date/Time Source Procedure Growth Status 05/24/17 23:00 Blood Peripheral Aerobic Blood Culture - Preliminary NO GROWTH IN 2 DAYS Resulted 05/24/17 23:00 Anaerobic Blood Culture - Final Escherichia Coli Resulted 05/25/17 13:33 Cerebral Spinal Fluid Lumbar Puncture Gram Stain - Final Resulted 05/25/17 13:33 Cerebral Spinal Fluid Lumbar Puncture CSF Culture - Preliminary NO GROWTH IN 48 HOURS. Resulted 05/24/17 22:07 Throat Group A Streptococcus Screen - Final NO GP A BETA STREP ISOLATED. Complete 05/25/17 01:30 Urine Clean Catch Urine Culture - Final Escherichia Coli Complete Physical Exam HEENT: Pupils round and reactive to light; normocephalic; atraumatic; no jaundice. Throat is clear. NECK: Neck is supple, no JVD, no lymphadenopathy. CHEST: Chest is clear to auscultation and percussion. CARDIAC: Regular rate and rhythm with no murmur gallop or rubs. ABDOMEN: Soft, nondistended, nontender; no hepatosplenomegaly; bowel sounds are present in all four quadrants. EXTREMITIES: No clubbing, cyanosis, or edema. SKIN: Normal; no rash; no jaundice. GEOPHYSICAL LABORATORY SUPERVISOR: No focal deficits; alert and oriented times three. Assessment and Plan Plan ASSESSMENT: - Abdominal pain, nausea, vomiting. States she has constant abdominal pain r/t endometriosis (not on any type of treatment)- but this is more a constant dull ache in lower abdomen. Started having more epigastric pressure like pain with associated nausea/vomiting about a week ago. CT Scan abdomen and pelvis with iv contrast (05/24/17)---> Hepatosplenomegaly with mild periportal edema and gallbladder wall thickening, these findings new since previous exam, appearance of the right kidney worrisome for pyelonephritis, right ovarian cyst. US GB (05/25/17)---> Hepatomegaly, mild nonspecific gallbladder wall thickening. MRCP without contrast (05/25/17)--> Hepatosplenomegaly, the gallbladder is grossly unremarkable. No biliary tract obstruction. Abnormal appearance of the right kidney. Multiple wedge shaped defects are seen throughout the renal parenchyma of the entire right kidney. The appearance suggests multiple parenchyma infarcts with mild diffuse enlargement of the right kidney. No hydronephrosis or perinephric edema. Pt has hx of meningitis (viral and bacterial per patient), has significant leukocytosis. ID following, plan is for LP with fluid sent for studies. ? r/t pyelonephritis. Likely with some gastritis, possible claudia esophagitis. - Odynophagia, oral candidiasis. improving, She denies any recent abx. States it started in oral cavity and she feels that it has progressed down her esophagus. She is on Diflucan, Magic Mouthwash. Add PPI - Elevated LFTs. Yesterday, had elevated bilirubin (slightly more direct) and elevated alk. phosph. MRCP without any evidence of biliary obstruction. Hepatitis panel pending. Rpt. labs pending. - GERD. Add PPI. - Leukocytosis, fevers, chills. LP ordered. ID following. Vanco, Azactam, Today's labs pending. - Pyelonephritis right, renal infarct right. Vanco, Azactam. - YADI. Creat 1.82, GFR 32 yesterday. Today's labs pending. - Coagulopathy. PT 12.3, INR 1.1, APTT 37.0. pt with hepatomegaly on imaging. Likely coagulopathy is related more to underlying sepsis/infection than actual liver disease. PLAN: - ELISSA - Azactam, Vanco - Cont. Diflucan - Protonix 40mg IV BID - Await today's labs- CBC, CMP - CBC and CMP in am - Consider EGD based on results of above - Supportive care - Further recommendations to follow based on results of above Rashmi Bettencourt MD May 27, 2017 16:09
--- NOTE | 2017-05-27 17:16 | HHI.IDPN ---
Subjective Subjective Remarks ID [id number] cover chart was reviewed 37 yo pt with severe R sided pyelonephritis E.coli and bactremia 2/2 E.coli Improved Feeling better Less pain + Urinating well No new co afebrile Antibiotics cipro aztreonem Allergies: Coded Allergies: codeine (Unverified Allergy, Severe, 05/23/17) "I GET REALLY HYPER" penicillin G (Unverified Allergy, Severe, 05/23/17) "I GET REALLY HYPER" promethazine (Unverified Allergy, Severe, 05/23/17) "I GET REALLY HYPER" Objective . Vital Signs Date Time Temp Pulse Resp B/P (MAP) Pulse Ox O2 Delivery O2 Flow Rate FiO2 05/27/17 16:00 98.4 72 20 117/69 (85) 98 05/27/17 12:00 96.9 75 19 111/61 (78) 95 05/27/17 08:00 99.2 82 20 107/57 (74) 95 05/27/17 00:00 98.0 76 17 118/64 (82) 98 05/26/17 20:19 80 05/26/17 20:00 98.2 88 17 121/69 (86) 98 05/27/17 05/27/17 05/28/17 15:00 23:00 07:00 Intake Total 220 ml Balance 220 ml Intake Oral 120 ml IV Total 100 ml . Laboratory Tests Test 05/26/17 05:57 White Blood Count 25.0 TH/MM3 Red Blood Count 2.90 MIL/MM3 Hemoglobin 8.9 GM/DL Hematocrit 26.5 % Mean Corpuscular Volume 91.3 FL Mean Corpuscular Hemoglobin 30.6 PG Mean Corpuscular Hemoglobin Concent 33.6 % Red Cell Distribution Width 13.2 % Platelet Count 358 TH/MM3 Mean Platelet Volume 6.6 FL Neutrophils (%) (Auto) 83.3 % Lymphocytes (%) (Auto) 9.7 % Monocytes (%) (Auto) 6.3 % Eosinophils (%) (Auto) 0.3 % Basophils (%) (Auto) 0.4 % Neutrophils # (Auto) 20.8 TH/MM3 Lymphocytes # (Auto) 2.4 TH/MM3 Monocytes # (Auto) 1.6 TH/MM3 Eosinophils # (Auto) 0.1 TH/MM3 Basophils # (Auto) 0.1 TH/MM3 CBC Comment AUTO DIFF Differential Total Cells Counted 100 Neutrophils % (Manual) 77 % Band Neutrophils % 12 % Lymphocytes % 6 % Monocytes % 4 % Neutrophils # (Manual) 22.5 TH/MM3 Metamyelocytes 1 % Differential Comment FINAL DIFF MANUAL Platelet Estimate NORMAL Platelet Morphology Comment NORMAL Red Cell Morphology Comment NORMAL Laboratory Tests Test 05/25/17 18:50 05/25/17 23:39 05/26/17 05:57 Lactic Acid Level 0.7 mmol/L Blood Urea Nitrogen 15 MG/DL 16 MG/DL Creatinine 0.98 MG/DL 0.95 MG/DL Random Glucose 67 MG/DL 74 MG/DL Calcium Level 7.8 MG/DL 8.2 MG/DL Sodium Level 141 MEQ/L 138 MEQ/L Potassium Level 3.5 MEQ/L 3.1 MEQ/L Chloride Level 107 MEQ/L 107 MEQ/L Carbon Dioxide Level 20.1 MEQ/L 20.9 MEQ/L Anion Gap 14 MEQ/L 10 MEQ/L Estimat Glomerular Filtration Rate 65 ML/MIN 67 ML/MIN Total Protein 6.0 GM/DL Albumin 1.7 GM/DL Magnesium Level 2.5 MG/DL Alkaline Phosphatase 270 U/L Aspartate Amino Transf (AST/SGOT) 16 U/L Alanine Aminotransferase (ALT/SGPT) 18 U/L Total Bilirubin 2.1 MG/DL Microbiology Date/Time Source Procedure Growth Status 05/24/17 23:00 Blood Peripheral Aerobic Blood Culture - Preliminary NO GROWTH IN 2 DAYS Resulted 05/24/17 23:00 Anaerobic Blood Culture - Final Escherichia Coli Resulted 05/24/17 23:00 Blood Peripheral Aerobic Blood Culture - Preliminary NO GROWTH IN 2 DAYS Resulted 05/24/17 23:00 Anaerobic Blood Culture - Final Escherichia Coli Resulted 05/25/17 13:33 Cerebral Spinal Fluid Lumbar Puncture Gram Stain - Final Resulted 05/25/17 13:33 Cerebral Spinal Fluid Lumbar Puncture CSF Culture - Preliminary NO GROWTH IN 48 HOURS. Resulted 05/24/17 22:07 Throat Group A Streptococcus Screen - Final NO GP A BETA STREP ISOLATED. Complete 05/24/17 22:07 Nasal Aspirate Influenza Types A,B Antigen (KEVEN) - Final NEGATIVE FOR FLU A AND B ANTIGEN.... Complete 05/24/17 22:07 Throat Group A Streptococcus Screen (KEVEN) - Final Complete 05/25/17 01:30 Urine Clean Catch Urine Culture - Final Escherichia Coli Complete Imaging Last Impressions Lumbar Puncture Fluoroscopy 05/25/17 0000 Signed Impressions: Service Date/Time: May 13:39 - CONCLUSION: Uncomplicated fluoroscopically guided lumbar puncture. Otilio Lozano MD Gall Bladder Ultrasound 05/25/17 0000 Signed Impressions: Service Date/Time: May 00:56 - CONCLUSION: Hepatomegaly. Mild nonspecific gallbladder wall thickening. Tyrel Norris MD Cholangiopancreatography MRI 05/25/17 0000 Signed Impressions: Service Date/Time: May 08:51 - CONCLUSION: 1. Hepatosplenomegaly. 2. The gallbladder is grossly unremarkable. No biliary tract obstruction. 3. Abnormal appearance of the right kidney. Multiple wedge shaped defects are seen throughout the renal parenchyma of the entire right kidney. The appearance suggests multiple parenchymal infarcts with mild diffuse enlargement of the right kidney. No hydronephrosis or perinephric edema. Daniel Jonas MD Chest X-Ray 05/25/17 0000 Signed Impressions: Service Date/Time: May 14:18 - CONCLUSION: No acute cardiopulmonary disease. Otilio Lozano MD Abdomen/Pelvis CT [id number]/24/172144 Signed Impressions: Service Date/Time: Wednesday, May 24, 2017 23:24 - CONCLUSION: Hepatosplenomegaly with mild periportal edema and gallbladder wall thickening, these findings new since previous exam. Appearance of the right kidney worrisome for pyelonephritis. Right ovarian cyst Tyrel Norris MD Physical Exam PAST MEDICAL HISTORY 1. Endometriosis. 2. Appendectomy. 3. Bowel resection. 4. x3. ALLERGIES PENICILLIN CAUSED THE PATIENT TO BECOME HYPER. CODEINE. PROMETHAZINE. MEDICATIONS 1. Vancomycin. 2. Aztreonam. 3. Fluconazole. 4. Metronidazole. SOCIAL HISTORY The patient smokes a pack of cigarettes a day. Occasional alcohol. Denies illicit drugs. The patient has three children who are in good health. OBJECTIVE: Vital Signs Date Time Temp Pulse Resp B/P (MAP) Pulse Ox O2 Delivery O2 Flow Rate FiO2 05/26/17 12:10 98 05/26/17 12:00 97.1 78 16 114/64 (81) 97 05/26/17 08:00 99.7 101 17 116/59 (78) 94 05/26/17 04:04 99.8 110 20 117/62 (80) 98 05/25/17 23:43 100.6 109 18 103/59 (74) 99 05/25/17 20:21 99.0 102 17 108/58 (75) 94 05/25/17 20:14 111 05/25/17 17:47 100.2 05/25/17 16:30 100.5 05/25/17 16:00 100.8 126 18 115/60 (78) 95 05/25/17 14:30 98.3 116 17 107/62 (77) 96 Laboratory Tests Test 05/24/17 22:03 05/25/17 09:32 05/26/17 05:57 White Blood Count 43.3 TH/MM3 37.4 TH/MM3 25.0 TH/MM3 Red Blood Count 3.66 MIL/MM3 3.24 MIL/MM3 2.90 MIL/MM3 Hemoglobin 11.5 GM/DL 9.9 GM/DL 8.9 GM/DL Hematocrit 33.1 % 29.2 % 26.5 % Mean Corpuscular Volume 90.4 FL 90.1 FL 91.3 FL Mean Corpuscular Hemoglobin 31.3 PG 30.4 PG 30.6 PG Mean Corpuscular Hemoglobin Concent 34.6 % 33.8 % 33.6 % Red Cell Distribution Width 13.6 % 13.7 % 13.2 % Platelet Count 376 TH/MM3 376 TH/MM3 358 TH/MM3 Mean Platelet Volume 6.7 FL 6.5 FL 6.6 FL Neutrophils (%) (Auto) 89.3 % 89.0 % 83.3 % Lymphocytes (%) (Auto) 4.8 % 4.5 % 9.7 % Monocytes (%) (Auto) 5.3 % 6.1 % 6.3 % Eosinophils (%) (Auto) 0.5 % 0.1 % 0.3 % Basophils (%) (Auto) 0.1 % 0.3 % 0.4 % Neutrophils # (Auto) 38.6 TH/MM3 33.3 TH/MM3 20.8 TH/MM3 Lymphocytes # (Auto) 2.1 TH/MM3 1.7 TH/MM3 2.4 TH/MM3 Monocytes # (Auto) 2.3 TH/MM3 2.3 TH/MM3 1.6 TH/MM3 Eosinophils # (Auto) 0.2 TH/MM3 0.1 TH/MM3 0.1 TH/MM3 Basophils # (Auto) 0.1 TH/MM3 0.1 TH/MM3 0.1 TH/MM3 CBC Comment AUTO DIFF AUTO DIFF AUTO DIFF Differential Total Cells Counted 100 100 100 Neutrophils % (Manual) 81 % 70 % 77 % Band Neutrophils % 9 % 14 % 12 % Lymphocytes % 5 % 7 % 6 % Monocytes % 5 % 8 % 4 % Neutrophils # (Manual) 39.0 TH/MM3 31.8 TH/MM3 22.5 TH/MM3 Differential Comment FINAL DIFF MANUAL FINAL DIFF MANUAL FINAL DIFF MANUAL Toxic Granulation 1+ 1+ Toxic Vacuolation PRESENT Dohle Bodies PRESENT PRESENT Platelet Estimate NORMAL NORMAL NORMAL Platelet Morphology Comment NORMAL NORMAL NORMAL Red Cell Morphology Comment NORMAL NORMAL Myelocytes 1 % Blood Smear Pathologist Review Metamyelocytes 1 % Laboratory Tests Test 05/24/17 22:03 05/25/17 09:32 05/25/17 18:50 05/25/17 23:39 Blood Urea Nitrogen 16 MG/DL 14 MG/DL 15 MG/DL Creatinine 1.82 MG/DL 1.30 MG/DL 0.98 MG/DL Random Glucose 61 MG/DL 75 MG/DL 67 MG/DL Total Protein 7.6 GM/DL 6.8 GM/DL Albumin 2.4 GM/DL 2.0 GM/DL Calcium Level 8.8 MG/DL 8.1 MG/DL 7.8 MG/DL Alkaline Phosphatase 264 U/L 236 U/L Aspartate Amino Transf (AST/SGOT) 26 U/L 38 U/L Alanine Aminotransferase (ALT/SGPT) 29 U/L 21 U/L Total Bilirubin 2.0 MG/DL 1.9 MG/DL Direct Bilirubin 1.3 MG/DL Sodium Level 138 MEQ/L 137 MEQ/L 141 MEQ/L Potassium Level 4.0 MEQ/L 3.6 MEQ/L 3.5 MEQ/L Chloride Level 100 MEQ/L 105 MEQ/L 107 MEQ/L Carbon Dioxide Level 24.8 MEQ/L 18.9 MEQ/L 20.1 MEQ/L Anion Gap 13 MEQ/L 13 MEQ/L 14 MEQ/L Estimat Glomerular Filtration Rate 32 ML/MIN 47 ML/MIN 65 ML/MIN Lactic Acid Level 1.6 mmol/L 0.7 mmol/L Indirect Bilirubin 0.7 MG/DL Troponin I LESS THAN 0.02 NG/ML Lipase 34 U/L Test 05/26/17 05:57 Blood Urea Nitrogen 16 MG/DL Creatinine 0.95 MG/DL Random Glucose 74 MG/DL Total Protein 6.0 GM/DL Albumin 1.7 GM/DL Calcium Level 8.2 MG/DL Magnesium Level 2.5 MG/DL Alkaline Phosphatase 270 U/L Aspartate Amino Transf (AST/SGOT) 16 U/L Alanine Aminotransferase (ALT/SGPT) 18 U/L Total Bilirubin 2.1 MG/DL Sodium Level 138 MEQ/L Potassium Level 3.1 MEQ/L Chloride Level 107 MEQ/L Carbon Dioxide Level 20.9 MEQ/L Anion Gap 10 MEQ/L Estimat Glomerular Filtration Rate 67 ML/MIN Microbiology Date/Time Source Procedure Growth Status 05/24/17 23:00 Blood Peripheral Aerobic Blood Culture - Preliminary NO GROWTH IN 1 DAY Resulted 05/24/17 23:00 Anaerobic Blood Culture - Preliminary Gram Negative Kahlil Resulted 05/24/17 23:00 Blood Peripheral Aerobic Blood Culture - Preliminary NO GROWTH IN 1 DAY Resulted 05/24/17 23:00 Anaerobic Blood Culture - Preliminary Gram Negative Kahlil Resulted 05/25/17 13:33 Cerebral Spinal Fluid Lumbar Puncture Gram Stain - Final Resulted 05/25/17 13:33 Cerebral Spinal Fluid Lumbar Puncture CSF Culture - Preliminary NO GROWTH IN 24 HOURS. Resulted 05/24/17 22:07 Throat Group A Streptococcus Screen - Final NO GP A BETA STREP ISOLATED. Complete 05/24/17 22:07 Nasal Aspirate Influenza Types A,B Antigen (KEVEN) - Final NEGATIVE FOR FLU A AND B ANTIGEN.... Complete 05/24/17 22:07 Throat Group A Streptococcus Screen (KEVEN) - Final Complete 05/25/17 01:30 Urine Clean Catch Urine Culture - Preliminary Gram Negative Kahlil Resulted PHYSICAL EXAMINATION GENERAL: No acute distress. Looks tired. HEENT: The head is atraumatic. The face is hyperemic. Extraocular movements grossly intact, pupils reactive to light. No icterus. No conjunctival erythema. Oropharynx moist mucosa. No thrush. No visible lesions. The uvula is midline. NECK: Supple with shotty anterior cervical adenopathy which is tender on palpation. LUNGS: Clear to auscultation. HEART: Regular, S1 and S2 without audible murmurs, rubs or gallops. ABDOMEN: Distended, soft, tenderness on palpation of the right lower abdomen and also tenderness at the right flank. EXTREMITIES: No clubbing or cyanosis or edema. SKIN: less pronounced macular rash at the neck, chest, arms and to a lesser degree at the legs. NEURO: No gross focal findings. Cranial nerves intact. PSYCHIATRIC: The patient is calm and cooperative.. Assessment & Plan Remarks IMPRESSION 1. Sepsis. E coli Nelson S - source 2. Acute R sided pyelonephritis. - no e/o obstruction or abscess 3. Fever and headache. CSF negative for meningitis. 4. Acute kidney injury: resolved 5. Leukocytosis, leukemoid reaction: markedly improved RECOMMENDATIONS 1. dc aztreonam. 2. Monitor clinically 3. cont Cipro while awaiting sensitivity. 4. Monitor temp and WBC. 5 anticipate transition to po Mary Amado MD May 27, 2017 17:16
[2017-05-27 17:29] LABS: AUTOMATED NEUTROPHIL # 12.9 TH/MM3 (1.8-7.7); BASOPHIL # 0.1 TH/MM3 (0-0.2); BASOPHIL % 0.5 % (0.0-2.0); EOSINOPHIL # 0.2 TH/MM3 (0-0.4); HEMATOCRIT 28.1 % (35.0-46.0); HEMOGLOBIN 9.5 GM/DL (11.6-15.3); LYMPH % 13.8 % (9.0-44.0); LYMPHOCYTE # 2.4 TH/MM3 (1.0-4.8); MEAN CELL VOLUME 90.4 FL (80.0-100.0); MEAN CORPUSCULAR HEMOGLOBIN 30.7 PG (27.0-34.0); MEAN PLATELET VOLUME 6.3 FL (7.0-11.0); MONO % 10.4 % (0.0-8.0); MONOCYTE # 1.8 TH/MM3 (0-0.9); NEUT % 74.3 % (16.0-70.0); PLATELET COUNT 364 TH/MM3 (150-450); RED BLOOD COUNT 3.11 MIL/MM3 (4.00-5.30); RED CELL DISTRIBUTION WIDTH 13.9 % (11.6-17.2); WHITE BLOOD COUNT 17.4 TH/MM3 (4.0-11.0)
[2017-05-27 17:48] LABS: BICARBONATE 24.1 MEQ/L (21.0-32.0); CALCIUM 8.2 MG/DL (8.5-10.1); CREATININE 0.83 MG/DL (0.50-1.00)
[2017-05-27 20:00] VITALS: BP 126/77; PULSE 73; PULSE 77; RESP 17; TEMP 97.6; O2SAT 99
[2017-05-27] MEDS: ZOLPIDEM TARTRATE 5 MG TAB PO PRN (21:21)
[2017-05-27] MEDS ORDERED: PHARMACY ORDERED LAB ONE (22:45)
[2017-05-28] VITALS: BP 120/71; PULSE 70; RESP 17; TEMP 97.1; O2SAT 98
[2017-05-28] MEDS: HYDROmorphone HCL PF 0.5 MG/0.5 ML SYRINGE IV PUSH PRN ×3 (01:29→10:47)
[2017-05-28] MEDS: CIPROFLOXACIN 400 MG PREMIX 200 ML IV SCH ×2 (03:44→13:05)
[2017-05-28] MEDS: oxyCODONE/ACETAMINOPHEN 5 MG/325 MG TAB PO PRN ×5 (03:44→20:00)
[2017-05-28 04:00] VITALS: BP 118/64; PULSE 72; RESP 17; TEMP 97.2; O2SAT 96
[2017-05-28 05:48] LABS: HEMATOCRIT 29.6 % (35.0-46.0); HEMOGLOBIN 9.8 GM/DL (11.6-15.3); MEAN CELL VOLUME 91.3 FL (80.0-100.0); MEAN CORPUSCULAR HEMOGLOBIN 30.2 PG (27.0-34.0); MEAN CORPUSCULAR HGB CONC 33.1 % (32.0-36.0); MEAN PLATELET VOLUME 6.1 FL (7.0-11.0); PLATELET COUNT 373 TH/MM3 (150-450); RED BLOOD COUNT 3.25 MIL/MM3 (4.00-5.30); RED CELL DISTRIBUTION WIDTH 13.6 % (11.6-17.2); WHITE BLOOD COUNT 15.3 TH/MM3 (4.0-11.0)
[2017-05-28 06:12] LABS: BICARBONATE 21.7 MEQ/L (21.0-32.0); CALCIUM 8.1 MG/DL (8.5-10.1); CREATININE 0.81 MG/DL (0.50-1.00)
[2017-05-28] MEDS: D5-NS + KCL 20 MEQ INJ 1,000 ML IV SCH ×2 (06:47→16:53)
[2017-05-28] MEDS: NYSTAT/DIPHENHY/LIDO MOUTHWASH (Adult) 120ML SWISH-SWAL SCH ×4 (07:43→20:00)
[2017-05-28] MEDS: SODIUM CHLORIDE 0.9% FLUSH 10 ML FLUSH IV FLUSH SCH ×2 (07:43→20:01)
[2017-05-28 08:00] VITALS: BP_SYST 111; BP_SYST 125; BP_DIAS 61; BP_DIAS 62; PULSE 83; PULSE 92; RESP 20; TEMP 97.7; TEMP 99.4; O2SAT 96
[2017-05-28] MEDS: DOCUSATE SODIUM 50 MG/SENNA 8.6 MG TAB PO SCH ×2 (08:04→20:00)
[2017-05-28 12:00] VITALS: BP 121/66; PULSE 84; RESP 21; TEMP 97.3; O2SAT 95
--- NOTE | 2017-05-28 13:35 | HHI.PR ---
Subjective Remarks Patient reports she is feeling much better. Inquiring about when she will be able to go home. Afebrile overnight. Pain is better controlled. Much better spirits today. Objective Vitals Vital Signs Date Time Temp Pulse Resp B/P (MAP) Pulse Ox O2 Delivery O2 Flow Rate FiO2 05/28/17 12:00 97.3 84 21 121/66 (84) 95 05/28/17 08:00 97.7 83 20 111/62 (78) 96 05/28/17 04:00 97.2 72 17 118/64 (82) 96 05/28/17 00:00 97.1 70 17 120/71 (87) 98 05/27/17 20:00 73 05/27/17 20:00 97.6 77 17 126/77 (93) 99 05/27/17 16:00 98.4 72 20 117/69 (85) 98 I/O 05/27/17 05/27/17 05/27/17 05/28/17 05/28/17 05/28/17 07:00 15:00 23:00 07:00 15:00 23:00 Intake Total 1340 ml 220 ml 960 ml 2440 ml 120 ml Output Total 1400 ml 1000 ml 2500 ml Balance -60 ml 220 ml -40 ml -60 ml 120 ml Intake Oral 240 ml 120 ml 960 ml 240 ml 120 ml IV Total 1100 ml 100 ml 2200 ml 0 ml Output Urine Total 1400 ml 1000 ml 2500 ml # Voids 1 # Bowel Movements 1 Result Diagram: 05/28/1744005/28/17440 Objective Remarks GENERAL: No acute distress CARDIOVASCULAR: Regular rate and rhythm. RESPIRATORY: No accessory muscle use. Clear to auscultation. Breath sounds equal bilaterally. GASTROINTESTINAL: Abdomen soft, diffusely tender to minimal palpation. No rebound tenderness. MUSCULOSKELETAL: Extremities without clubbing, cyanosis, or edema. No obvious deformities. NEUROLOGICAL: Awake and alert. Normal speech. PSYCHIATRIC: Appropriate mood and affect; insight and judgment normal. A/P Assessment and Plan In summary, this is a 37-year-old female with past medical history of endometriosis presents to the emergency department with a 6 day history of generalized malaise, extreme abdominal pain nausea and vomiting. Patient is septic and bacteremic secondary to UTI/pyelonephritis. She has been slowly improving with IV antibiotics. Infectious disease will follow up tomorrow for discharge antibiotics recommendations. Sepsis secondary to UTI/pyelonephritis/Bacteremia: Urine growing Escherichia coli. Patient earlier had complaints concerning for meningitis. S/P LP CSF neg. - Appreciate ID following -Azactam discontinued per ID. Continue Cipro. -ID will follow up tomorrow for further recommendations. Severe abdominal pain CT of the abdomen/pelvis significant for hepatosplenomegaly and gallbladder wall thickening. Ultrasound of the gallbladder also showed nonspecific thickening. - Continue with pain control. Discontinue IV Dilaudid. Marked leukocytosis: -Secondary to Pyelonephritis. - Patient evaluated by Hematology. No apparent bone marrow disorder -Leukocytosis improving. Discharge Planning Probable discharge tomorrow Gini Stein MD May 28, 2017 13:35
[2017-05-28 16:00] VITALS: BP 113/63; PULSE 88; RESP 20; TEMP 97.7; O2SAT 98
[2017-05-28 20:00] VITALS: BP 113/68; PULSE 80; RESP 17; TEMP 97.2; O2SAT 97
[2017-05-28] MEDS: ZOLPIDEM TARTRATE 5 MG TAB PO PRN (20:00)
[2017-05-29] VITALS (7 sets, daily range): BP systolic 111–125; BP diastolic 58–71; PULSE 57–78; RESP 17–20; TEMP 96.4–98.2; O2SAT 95–98
[2017-05-29] MEDS: oxyCODONE/ACETAMINOPHEN 5 MG/325 MG TAB PO PRN ×6 (00:09→20:33)
[2017-05-29] MEDS: D5-NS + KCL 20 MEQ INJ 1,000 ML IV SCH ×3 (00:13→18:45)
[2017-05-29] MEDS: CIPROFLOXACIN 400 MG PREMIX 200 ML IV SCH ×2 (04:09→15:31)
[2017-05-29] MEDS ORDERED: KETOROLAC TROMETHAMINE 30 MG/ML (IVP) VIAL IV PUSH ONE (06:00)
[2017-05-29 07:11] LABS: HEMATOCRIT 29.1 % (35.0-46.0); HEMOGLOBIN 9.8 GM/DL (11.6-15.3); MEAN CELL VOLUME 89.6 FL (80.0-100.0); MEAN CORPUSCULAR HEMOGLOBIN 30.4 PG (27.0-34.0); MEAN CORPUSCULAR HGB CONC 33.9 % (32.0-36.0); MEAN PLATELET VOLUME 6.3 FL (7.0-11.0); PLATELET COUNT 440 TH/MM3 (150-450); RED BLOOD COUNT 3.24 MIL/MM3 (4.00-5.30); RED CELL DISTRIBUTION WIDTH 13.6 % (11.6-17.2); WHITE BLOOD COUNT 17.2 TH/MM3 (4.0-11.0)
--- NOTE | 2017-05-29 07:52 | PD.ONC.PN ---
Subjective Subjective Remarks Still has flank pain. Afebrile. Objective Data Date Time Temp Pulse Resp B/P (MAP) Pulse Ox O2 Delivery O2 Flow Rate FiO2 05/29/17 04:00 98.2 72 17 116/59 (78) 96 05/29/17 00:00 97.3 73 18 121/69 (86) 96 05/28/17 20:00 97.2 80 17 113/68 (83) 97 05/28/17 20:00 80 05/28/17 16:00 97.7 88 20 113/63 (80) 98 05/28/17 12:00 97.3 84 21 121/66 (84) 95 05/28/17 08:00 97.7 83 20 111/62 (78) 96 05/29/17 05/29/17 05/29/17 07:00 15:00 23:00 Intake Total 2065 ml Balance 2065 ml Result Diagram: 05/29/17 0700 05/28/17 0441 Laboratory Results Laboratory Tests Test 05/29/17 07:00 White Blood Count 17.2 TH/MM3 Red Blood Count 3.24 MIL/MM3 Hemoglobin 9.8 GM/DL Hematocrit 29.1 % Mean Corpuscular Volume 89.6 FL Mean Corpuscular Hemoglobin 30.4 PG Mean Corpuscular Hemoglobin Concent 33.9 % Red Cell Distribution Width 13.6 % Platelet Count 440 TH/MM3 Mean Platelet Volume 6.3 FL Administered Medications Medications (Trade) Dose Ordered Sig/Ivelisse Route PRN Reason Start Time Stop Time Status Last Admin Dose Admin Sodium Chloride (NS Flush) 2 ml BID IV FLUSH 05/25/17 09:00 05/25/17 20:31 Ondansetron HCl (Zofran Inj) 4 mg Q6H PRN IVP NAUSEA OR VOMITING 05/25/17 03:15 05/28/17 01:29 Zolpidem Tartrate (Ambien) 5 mg HS PRN PO INSOMNIA 05/25/17 03:15 05/28/17 20:00 Senna/Docusate Sodium (Rachelle-Colace) 1 tab BID PO 05/25/17 09:00 05/28/17 20:00 Multi-Ingredient Mouthwash/Gargle (Magic Mouthwash Adult Liq) 10 ml QID SWISH-SWAL 05/25/17 09:00 05/25/17 14:02 Acetaminophen (Tylenol) 650 mg Q4H PRN PO FEVER 05/25/17 09:00 05/25/17 16:28 Potassium Chloride/Dextrose/ Sod Cl 1,000 ml @ 125 mls/hr Q8H IV 05/25/17 18:45 05/29/17 00:13 Ciprofloxacin/ Dextrose 200 ml @ 200 mls/hr Q12H IV 05/26/17 15:00 05/29/17 04:09 Oxycodone/ Acetaminophen (Percocet 5-325 Mg) 1 tab Q4H PRN PO PAIN GREATER THAN 5 05/26/17 22:00 05/29/17 04:09 Objective Remarks GENERAL: Well-nourished, well-developed patient. SKIN: Warm and dry. HEAD: Normocephalic. EYES: No scleral icterus. No injection or drainage. NECK: Supple, trachea midline. No JVD or lymphadenopathy. LYMPHATIC: No adenopathy. CARDIOVASCULAR: Regular rate and rhythm without murmurs. RESPIRATORY: Breath sounds equal bilaterally. No accessory muscle use. GASTROINTESTINAL: Abdomen soft, non-tender, nondistended. EXTREMITIES: No cyanosis, or edema. MUSCULOSKELETAL: Adequate muscle tone. +CVAT, NEUROLOGICAL: No obvious focal deficit. Awake, alert, and oriented x3. PSYCHIATRIC: Appropriate mood and affect; insight and judgment normal. Assessment/Plan Problem List: (1) Leukocytosis ICD Codes: D72.829 - Elevated white blood cell count, unspecified Plan: --Leukocytosis improving, anticipate her leukocytosis to improve once infection is controlled. --Leukocytosis with predominant neutrophils and bandemia. --also toxic granulation and toxic vacuolation consistent with leukemoid reaction due to underlying infection. --do not think that she has underlying bone marrow disorder. (2) Normocytic anemia ICD Codes: D64.9 - Anemia, unspecified Plan: --likely due to sepsis and transient bone marrow suppression, no evidence of bleeding. Hgb stable. (3) Sepsis ICD Codes: A41.9 - Sepsis, unspecified organism Plan: --on antibiotics per ID --BC +E.coli --acute pyelonephritis. --Workup for cholecystitis so far is unremarkable. --No apparent meningitis. Assessment 37y/o female with history of endometriosis and fatty liver, presented to the hospital with complaint of fatigue, sore throat, abdominal pain. She stated last she started having sore throat and fatigue. She had dysphagia. She has intermittent fever up to 101. She started having severe abdominal pain about 2 days prior to admission. She also had some burning sensation when she urinated last Monday. When she came to the hospital she was found to be tachycardic. She was also noted to have leukocytosis, white blood cell count 43 ,000. Hematology was consulted for further evaluation. Plan 1. antibiotics per infectious disease 2. we do not think she has an underlying bone marrow disorder 3. continue supportive care 4. Hematology will sign off. Gerry Ruiz MD May 29, 2017 07:52
[2017-05-29] MEDS: DOCUSATE SODIUM 50 MG/SENNA 8.6 MG TAB PO SCH ×2 (08:16→20:33)
[2017-05-29] MEDS: NYSTAT/DIPHENHY/LIDO MOUTHWASH (Adult) 120ML SWISH-SWAL SCH ×4 (08:23→20:34)
[2017-05-29] MEDS: SODIUM CHLORIDE 0.9% FLUSH 10 ML FLUSH IV FLUSH SCH ×2 (08:23→20:36)
--- NOTE | 2017-05-29 11:38 | HHI.IDPN ---
Note Infectious Disease Note Patient has increased pain in the right flank. asking for pain meds. No nausea. Denies HERNANDEZ. Temp normal. WBC still elevated. PAST MEDICAL HISTORY 1. Endometriosis. 2. Appendectomy. 3. Bowel resection. 4. x3. ALLERGIES PENICILLIN CAUSED THE PATIENT TO BECOME HYPER. CODEINE. PROMETHAZINE. ANTIBIOTICS: Ciprofloxacin. SOCIAL HISTORY The patient smokes a pack of cigarettes a day. Occasional alcohol. Denies illicit drugs. The patient has three children who are in good health. OBJECTIVE: Vital Signs Date Time Temp Pulse Resp B/P (MAP) Pulse Ox O2 Delivery O2 Flow Rate FiO2 05/29/17 08:00 96.6 67 17 111/58 (75) 95 05/29/17 04:00 98.2 72 17 116/59 (78) 96 05/29/17 00:00 97.3 73 18 121/69 (86) 96 05/28/17 20:00 97.2 80 17 113/68 (83) 97 05/28/17 20:00 80 05/28/17 16:00 97.7 88 20 113/63 (80) 98 05/28/17 12:00 97.3 84 21 121/66 (84) 95 Laboratory Tests Test 05/27/17 16:57 05/28/17 04:41 05/29/17 07:00 White Blood Count 17.4 TH/MM3 15.3 TH/MM3 17.2 TH/MM3 Red Blood Count 3.11 MIL/MM3 3.25 MIL/MM3 3.24 MIL/MM3 Hemoglobin 9.5 GM/DL 9.8 GM/DL 9.8 GM/DL Hematocrit 28.1 % 29.6 % 29.1 % Mean Corpuscular Volume 90.4 FL 91.3 FL 89.6 FL Mean Corpuscular Hemoglobin 30.7 PG 30.2 PG 30.4 PG Mean Corpuscular Hemoglobin Concent 34.0 % 33.1 % 33.9 % Red Cell Distribution Width 13.9 % 13.6 % 13.6 % Platelet Count 364 TH/MM3 373 TH/MM3 440 TH/MM3 Mean Platelet Volume 6.3 FL 6.1 FL 6.3 FL Neutrophils (%) (Auto) 74.3 % Lymphocytes (%) (Auto) 13.8 % Monocytes (%) (Auto) 10.4 % Eosinophils (%) (Auto) 1.0 % Basophils (%) (Auto) 0.5 % Neutrophils # (Auto) 12.9 TH/MM3 Lymphocytes # (Auto) 2.4 TH/MM3 Monocytes # (Auto) 1.8 TH/MM3 Eosinophils # (Auto) 0.2 TH/MM3 Basophils # (Auto) 0.1 TH/MM3 CBC Comment AUTO DIFF Differential Comment AUTO DIFF CONFIRMED Platelet Estimate NORMAL Platelet Morphology Comment NORMAL Red Cell Morphology Comment NORMAL Laboratory Tests Test 05/27/17 16:57 05/28/17 04:41 Blood Urea Nitrogen 12 MG/DL 10 MG/DL Creatinine 0.83 MG/DL 0.81 MG/DL Random Glucose 89 MG/DL 90 MG/DL Calcium Level 8.2 MG/DL 8.1 MG/DL Sodium Level 140 MEQ/L 140 MEQ/L Potassium Level 3.4 MEQ/L 3.5 MEQ/L Chloride Level 109 MEQ/L 107 MEQ/L Carbon Dioxide Level 24.1 MEQ/L 21.7 MEQ/L Anion Gap 7 MEQ/L 11 MEQ/L Estimat Glomerular Filtration Rate 78 ML/MIN 80 ML/MIN Microbiology Date/Time Source Procedure Growth Status 05/24/17 23:00 Blood Peripheral Aerobic Blood Culture - Preliminary NO GROWTH IN 1 DAY Resulted 05/24/17 23:00 Anaerobic Blood Culture - Preliminary Gram Negative Kahlil Resulted 05/24/17 23:00 Blood Peripheral Aerobic Blood Culture - Preliminary NO GROWTH IN 1 DAY Resulted 05/24/17 23:00 Anaerobic Blood Culture - Preliminary Gram Negative Kahlil Resulted 05/25/17 13:33 Cerebral Spinal Fluid Lumbar Puncture Gram Stain - Final Resulted 05/25/17 13:33 Cerebral Spinal Fluid Lumbar Puncture CSF Culture - Preliminary NO GROWTH IN 24 HOURS. Resulted 05/24/17 22:07 Throat Group A Streptococcus Screen - Final NO GP A BETA STREP ISOLATED. Complete 05/24/17 22:07 Nasal Aspirate Influenza Types A,B Antigen (KEVEN) - Final NEGATIVE FOR FLU A AND B ANTIGEN.... Complete 05/24/17 22:07 Throat Group A Streptococcus Screen (KEVEN) - Final Complete 05/25/17 01:30 Urine Clean Catch Urine Culture - Preliminary Gram Negative Kahlil Resulted IMAGING: Lumbar Puncture Fluoroscopy 05/25/17 0000 Signed Impressions: Service Date/Time: May 13:39 - CONCLUSION: Uncomplicated fluoroscopically guided lumbar puncture. Otilio Lozano MD Gall Bladder Ultrasound 05/25/17 0000 Signed Impressions: Service Date/Time: May 00:56 - CONCLUSION: Hepatomegaly. Mild nonspecific gallbladder wall thickening. Tyrel Norris MD Cholangiopancreatography MRI 05/25/17 0000 Signed Impressions: Service Date/Time: May 08:51 - CONCLUSION: 1. Hepatosplenomegaly. 2. The gallbladder is grossly unremarkable. No biliary tract obstruction. 3. Abnormal appearance of the right kidney. Multiple wedge shaped defects are seen throughout the renal parenchyma of the entire right kidney. The appearance suggests multiple parenchymal infarcts with mild diffuse enlargement of the right kidney. No hydronephrosis or perinephric edema. Daniel Jonas MD Chest X-Ray 05/25/17 0000 Signed Impressions: Service Date/Time: May 14:18 - CONCLUSION: No acute cardiopulmonary disease. Otilio Lozano MD Abdomen/Pelvis CT 05/24/17 2145 Signed Impressions: Service Date/Time: Wednesday, May 24, 2017 23:24 - CONCLUSION: Hepatosplenomegaly with mild periportal edema and gallbladder wall thickening, these findings new since previous exam. Appearance of the right kidney worrisome for pyelonephritis. Right ovarian cyst Tyrel Norris MD PHYSICAL EXAMINATION GENERAL: No acute distress. Still looks tired. HEENT: No icterus. Oropharynx moist mucosa. No visible lesions. NECK: Supple. LUNGS: Clear to auscultation. HEART: Regular, S1 and S2 without audible murmurs, rubs or gallops. ABDOMEN: Distended, soft, tenderness at the right flank. EXTREMITIES: No clubbing or cyanosis or edema. SKIN: No rash. NEURO: No gross focal findings. PSYCHIATRIC: Calm and cooperative.. IMPRESSION 1. Sepsis. E. coli. 2. Acute pyelonephritis. Still with elevated WBC and R. flank pain/tenderness. 3. Acute kidney disease. Improving. 4. UTI e. coli. 5. Leukocytosis. RECOMMENDATIONS 1. Continue ciprofloxacin. 2. Ultrasound of the kidneys. ? abscess. 3. Monitor temp and WBC. Ajay Lambert MD May 29, 2017 11:38
--- NOTE | 2017-05-29 13:33 | RADRPT ---
EXAM DATE/TIME: 05/29/2017 13:10 [place] COMPARISON: CT ABDOMEN & PELVIS W CONTRAST, May 24, 2017, 23:24. INDICATIONS : Flank pain. MEDICAL HISTORY : Spinal meningitis. Hematemesis. Endometriosis. SURGICAL HISTORY : Appendectomy. section. Tubal ligation. Bowel resection. Endometriosis surgery. ENCOUNTER: Initial ACUITY: 4-6 days PAIN SCORE: 3/10 LOCATION: Bilateral flank MEASUREMENTS: RIGHT KIDNEY: 12.7 x 4.9 x 4.0 cm LEFT KIDNEY: 12.8 x 6.3 x 4.5 cm FINDINGS: RIGHT KIDNEY: Renal cortex is normal in thickness and echotexture. No hydronephrosis, stone, or mass. LEFT KIDNEY: Renal cortex is normal in thickness and echotexture. No hydronephrosis, stone, or mass. BLADDER: Within normal limits given the degree of distension. CONCLUSION: 1. No evidence for obstructive uropathy or renal stones. 2. Note that appears to the right kidney on recent CT examination is concerning for pyelonephritis. Neftali Almonte MD on May 29, 2017 at 13:29 Board Certified Radiologist. This report was verified electronically.
--- NOTE | 2017-05-29 16:05 | HHI.PR ---
Subjective Remarks Patient has been seen by infectious disease. He wishes for her to stay on IV antibiotics today for HER LEUKOCYTOSIS PATIENT REMAINS ON CIPRO AM LABS DW RN AND PT AND FAMILY AND CM Objective Vitals Vital Signs Date Time Temp Pulse Resp B/P (MAP) Pulse Ox O2 Delivery O2 Flow Rate FiO2 05/29/17 12:00 96.4 57 17 125/69 (87) 96 05/29/17 08:00 96.6 67 17 111/58 (75) 95 05/29/17 04:00 98.2 72 17 116/59 (78) 96 05/29/17 00:00 97.3 73 18 121/69 (86) 96 05/28/17 20:00 97.2 80 17 113/68 (83) 97 05/28/17 20:00 80 05/28/17 16:00 97.7 88 20 113/63 (80) 98 I/O 05/28/17 05/28/17 05/28/17 05/29/17 05/29/17 05/29/17 07:00 15:00 23:00 07:00 15:00 23:00 Intake Total 2440 ml 320 ml 970 ml 2065 ml Output Total 2500 ml 900 ml Balance -60 ml 320 ml 70 ml 2065 ml Intake Oral 240 ml 120 ml 970 ml 240 ml IV Total 2200 ml 200 ml 1825 ml Output Urine Total 2500 ml 900 ml # Voids 1 2 # Bowel Movements 1 Result Diagram: 05/29/17 0700 05/28/17 0441 Other Results Laboratory Tests Test 05/27/17 16:57 05/28/17 04:41 05/29/17 07:00 White Blood Count 17.4 TH/MM3 15.3 TH/MM3 17.2 TH/MM3 Red Blood Count 3.11 MIL/MM3 3.25 MIL/MM3 3.24 MIL/MM3 Hemoglobin 9.5 GM/DL 9.8 GM/DL 9.8 GM/DL Hematocrit 28.1 % 29.6 % 29.1 % Mean Corpuscular Volume 90.4 FL 91.3 FL 89.6 FL Mean Corpuscular Hemoglobin 30.7 PG 30.2 PG 30.4 PG Mean Corpuscular Hemoglobin Concent 34.0 % 33.1 % 33.9 % Red Cell Distribution Width 13.9 % 13.6 % 13.6 % Platelet Count 364 TH/MM3 373 TH/MM3 440 TH/MM3 Mean Platelet Volume 6.3 FL 6.1 FL 6.3 FL Neutrophils (%) (Auto) 74.3 % Lymphocytes (%) (Auto) 13.8 % Monocytes (%) (Auto) 10.4 % Eosinophils (%) (Auto) 1.0 % Basophils (%) (Auto) 0.5 % Neutrophils # (Auto) 12.9 TH/MM3 Lymphocytes # (Auto) 2.4 TH/MM3 Monocytes # (Auto) 1.8 TH/MM3 Eosinophils # (Auto) 0.2 TH/MM3 Basophils # (Auto) 0.1 TH/MM3 CBC Comment AUTO DIFF Differential Comment AUTO DIFF CONFIRMED Platelet Estimate NORMAL Platelet Morphology Comment NORMAL Red Cell Morphology Comment NORMAL Blood Urea Nitrogen 12 MG/DL 10 MG/DL Creatinine 0.83 MG/DL 0.81 MG/DL Random Glucose 89 MG/DL 90 MG/DL Calcium Level 8.2 MG/DL 8.1 MG/DL Sodium Level 140 MEQ/L 140 MEQ/L Potassium Level 3.4 MEQ/L 3.5 MEQ/L Chloride Level 109 MEQ/L 107 MEQ/L Carbon Dioxide Level 24.1 MEQ/L 21.7 MEQ/L Anion Gap 7 MEQ/L 11 MEQ/L Estimat Glomerular Filtration Rate 78 ML/MIN 80 ML/MIN Imaging Last Impressions Renal Ultrasound 05/29/17 0000 Signed Impressions: Service Date/Time: Monday, May 29, 2017 13:10 - CONCLUSION: 1. No evidence for obstructive uropathy or renal stones. 2. Note that appears to the right kidney on recent CT examination is concerning for pyelonephritis. Neftali Almonte MD Lumbar Puncture Fluoroscopy 05/25/17 0000 Signed Impressions: Service Date/Time: May 13:39 - CONCLUSION: Uncomplicated fluoroscopically guided lumbar puncture. Otilio Lozano MD Gall Bladder Ultrasound 05/25/17 0000 Signed Impressions: Service Date/Time: May 00:56 - CONCLUSION: Hepatomegaly. Mild nonspecific gallbladder wall thickening. Tyrel Norris MD Cholangiopancreatography MRI 05/25/17 0000 Signed Impressions: Service Date/Time: May 08:51 - CONCLUSION: 1. Hepatosplenomegaly. 2. The gallbladder is grossly unremarkable. No biliary tract obstruction. 3. Abnormal appearance of the right kidney. Multiple wedge shaped defects are seen throughout the renal parenchyma of the entire right kidney. The appearance suggests multiple parenchymal infarcts with mild diffuse enlargement of the right kidney. No hydronephrosis or perinephric edema. Daniel Jonas MD Chest X-Ray 05/25/17 0000 Signed Impressions: Service Date/Time: May 14:18 - CONCLUSION: No acute cardiopulmonary disease. Otilio Lozano MD Abdomen/Pelvis CT 05/24/17 2145 Signed Impressions: Service Date/Time: Wednesday, May 24, 2017 23:24 - CONCLUSION: Hepatosplenomegaly with mild periportal edema and gallbladder wall thickening, these findings new since previous exam. Appearance of the right kidney worrisome for pyelonephritis. Right ovarian cyst Tyrel Norris MD Objective Remarks GENERAL: Awake alert oriented talkative and cooperative SKIN: Warm and dry. HEAD: Atraumatic. Normocephalic. EYES: Pupils equal and round. No scleral icterus. No injection or drainage. Extraocular muscles intact ENT: No nasal bleeding or discharge. Mucous membranes pink and moist. Tongue is midline NECK: Trachea midline. No JVD. Neck is supple CARDIOVASCULAR: Regular rate and rhythm. S1 and S2 no S3-S4 no heave or thrill or rub or gallop RESPIRATORY: No accessory muscle use. Clear to auscultation. Breath sounds equal bilaterally. GASTROINTESTINAL: Abdomen soft, non-tender, nondistended. Hepatic and splenic margins not palpable. MUSCULOSKELETAL: Extremities without clubbing, cyanosis, or edema. No obvious deformities. NEUROLOGICAL: Awake and alert. No obvious cranial nerve deficits. Motor grossly within normal limits. Five out of 5 muscle strength in the arms and legs. Normal speech. PSYCHIATRIC: Appropriate mood and affect; insight and judgment normal. Right CVA tenderness Medications and IVs Current Medications Sodium Chloride (NS Flush) 2 ml UNSCH PRN IV FLUSH FLUSH AFTER USING IV ACCESS ; Start 05/24/17 at 21:45; Stop 05/25/17 at 02:54; Status DC Sodium Chloride 1,000 ml @ 999 mls/hr BOLUS ONCE IV Last administered on 05/24t 22:22; Start 05/24/17 at 21:45; Stop 05/24/17 at 22:45; Status DC Morphine Sulfate (Morphine Inj) 6 mg ONCE ONCE IV PUSH Last administered on 22:23; Start 05/24/17 at 22:00; Stop 05/24/17 at 22:01; Status DC Ondansetron HCl (Zofran Inj) 4 mg ONCE ONCE IV PUSH Last administered on 22:24; Start 05/24/17 at 22:00; Stop 05/24/17 at 22:01; Status DC Sodium Chloride 1,000 ml @ 999 mls/hr BOLUS ONCE IV Last administered on 05/24 23:08; Start 05/24/17 at 22:45; Stop 05/24/17 at 23:45; Status DC Iohexol (Omnipaque 350 Inj) 96 ml STK-MED ONCE IVCONTRAST Last administered on 05/24/17 23:29; Start 05/24/17 at 23:29; Stop 05/24/17 at 23:30; Status DC Vancomycin HCl 1000 mg/Sodium Chloride 250 ml @ 250 mls/hr ONCE ONCE IV Last administered on 05/25/17 00:32; Start 05/25/17 at 00:00; Stop 05/25/17 at 00:59 ; Status DC Aztreonam 2000 mg/ Sodium Chloride 100 ml @ 200 mls/hr ONCE ONCE IV Last administered on 05/25/17 02:13; Start 05/25/17 at 00:00; Stop 05/25/17 at 00:29 ; Status DC Morphine Sulfate (Morphine Inj) 4 mg ONCE ONCE IV PUSH Last administered on 00:32; Start 05/25/17 at 00:15; Stop 05/25/17 at 00:16; Status DC Sodium Chloride (NS Flush) 2 ml UNSCH PRN IV FLUSH FLUSH AFTER USING IV ACCESS ; Start 05/25/17 at 01:30; Stop 05/25/17 at 03:22; Status DC Sodium Chloride (NS Flush) 2 ml BID IV FLUSH ; Start 05/25/17 at 09:00; Stop at 09:00; Status DC Acetaminophen (Tylenol) 650 mg Q4H PRN PO TEMP > 100.4; Start 05/25/17 at 01:30 ; Stop 05/25/17 at 03:22; Status DC Ondansetron HCl (Zofran Inj) 4 mg Q6H PRN IVP NAUSEA OR VOMITING; Start at 01:30; Stop 05/25/17 at 03:22; Status DC Naloxone HCl (Narcan Inj) 0.4 mg UNSCH PRN IV PUSH SEE LABEL COMMENTS; Start 05/25/17 at 01:30; Stop 05/25/17 at 03:22; Status DC Dextrose/Sodium Chloride 1,000 ml @ 100 mls/hr Q10H IV Last administered on 02:13; Start 05/25/17 at 02:00; Stop 05/25/17 at 03:22; Status DC Pneumococcal Polyvalent Vaccine (Pneumovax-23 Inj) 25 mcg ONCE ONCE IM ; Start 05/26/17 at 10:00; Stop 05/26/17 at 10:03; Status DC Influenza Virus Vaccine (Flu (Quadrivalent) Vaccine Inj) 0.5 ml ONCE ONCE IM ; Start 05/26/17 at 10:00; Stop 05/26/17 at 10:03; Status DC Sodium Chloride 1,000 ml @ 100 mls/hr Q10H IV Last administered on 05/25/17 11:14; Start 05/25/17 at 03:05; Stop 05/25/17 at 19:01; Status DC Sodium Chloride (NS Flush) 2 ml UNSCH PRN IV FLUSH FLUSH AFTER USING IV ACCESS ; Start 05/25/17 at 03:15 Sodium Chloride (NS Flush) 2 ml BID IV FLUSH Last administered on 05/25/17 20: 31; Start 05/25/17 at 09:00 Acetaminophen (Tylenol) 650 mg Q4H PRN PO TEMP > 100.4 Last administered on 08:23; Start 05/25/17 at 03:15; Stop 05/25/17 at 08:58; Status DC Ondansetron HCl (Zofran Inj) 4 mg Q6H PRN IVP NAUSEA OR VOMITING Last administered on 05/28/17 01:29; Start 05/25/17 at 03:15 Zolpidem Tartrate (Ambien) 5 mg HS PRN PO INSOMNIA Last administered on 20:00; Start 05/25/17 at 03:15 Naloxone HCl (Narcan Inj) 0.4 mg UNSCH PRN IV PUSH SEE LABEL COMMENTS; Start 05/25/17 at 03:15 Senna/Docusate Sodium (Rachelle-Colace) 1 tab BID PO Last administered on 08:16; Start 05/25/17 at 09:00 Magnesium Hydroxide (Milk Of Magnesia Liq) 30 ml Q12H PRN PO Mild constipation ; Start 05/25/17 at 03:15 Sennosides (Senokot) 17.2 mg Q12H PRN PO Moderate constipation; Start 05/25/17 at 03:15 Bisacodyl (Dulcolax Supp) 10 mg DAILY PRN RECTAL SEVERE CONSITIPATION; Start 05/25/17 at 03:15 Lactulose (Lactulose Liq) 30 ml DAILY PRN PO SEVERE CONSITIPATION; Start at 03:15 Hydromorphone HCl (Dilaudid Pf Inj) 0.5 mg Q4H PRN IV PUSH BREAKTHROUGH PAIN Last administered on 05/28/17 10:47; Start 05/25/17 at 03:15; Stop 05/28/17 at 15:01; Status DC Fluconazole (Diflucan) 200 mg DAILY PO Last administered on 05/26/17 08:14; Start 05/25/17 at 09:00; Stop 05/26/17 at 14:26; Status DC Multi-Ingredient Mouthwash/Gargle (Magic Mouthwash Adult Liq) 10 ml QID SWISH- SWAL Last administered on 05/25/17 14:02; Start 05/25/17 at 09:00 Pharmacy Profile Note 0 ml @ 0 mls/hr UNSCH OTHER ; Start 05/25/17 at 03:30; Stop 05/26/17 at 14:26; Status DC Vancomycin HCl 1000 mg/Sodium Chloride 250 ml @ 250 mls/hr Q12H IV ; Start 05/25/17 at 12:00; Status UNV Aztreonam 2000 mg/ Sodium Chloride 100 ml @ 200 mls/hr Q8H IV Last administered on 05/27/17 16:27; Start 05/25/17 at 10:00; Stop 05/27/17 at 17:16 ; Status DC Sodium Chloride 500 ml @ 500 mls/hr BOLUS ONCE IV Last administered on 06:00; Start 05/25/17 at 06:00; Stop 05/25/17 at 06:59; Status DC Metronidazole 100 ml @ 100 mls/hr Q6H IV Last administered on 05/26/17 08:16 ; Start 05/25/17 at 09:00; Stop 05/26/17 at 14:26; Status DC Acetaminophen (Tylenol) 650 mg Q4H PRN PO FEVER Last administered on 05/25/17 16:28; Start 05/25/17 at 09:00 Sodium Chloride 1,000 ml @ 999 mls/hr BOLUS ONCE IV Last administered on 05/25 09:37; Start 05/25/17 at 09:00; Stop 05/25/17 at 10:00; Status DC Vancomycin HCl 1500 mg/Sodium Chloride 515 ml @ 257.5 mls/ hr Q24H IV Last administered on 05/25/17 23:33; Start 05/25/17 at 23:00; Stop 05/26/17 at 14:26 ; Status DC Miscellaneous Information SPECIFIC LAB TO BE DRAWN:VANCO TROUGH DATE TO BE DR... ONCE ONCE .XX ; Start 05/27/17 at 22:45; Stop 05/27/17 at 22:45; Status DC Potassium Chloride/Dextrose/ Sod Cl 1,000 ml @ 125 mls/hr Q8H IV Last administered on 05/29/17 15:32; Start 05/25/17 at 18:45 Sodium Chloride 1,000 ml @ 999 mls/hr BOLUS ONCE IV Last administered on 05/25 20:36; Start 05/25/17 at 18:45; Stop 05/25/17 at 19:45; Status DC Sodium Bicarbonate (Sodium Bicarbonate) 650 mg ONCE ONCE PO Last administered on 05/25/17 20:30; Start 05/25/17 at 18:45; Stop 05/25/17 at 19:00; Status DC Potassium Chloride (KCl) 30 meq ONCE ONCE PO Last administered on 05/26/17 10 :17; Start 05/26/17 at 09:30; Stop 05/26/17 at 10:12; Status DC Ciprofloxacin/ Dextrose 200 ml @ 200 mls/hr Q12H IV Last administered on 15:31; Start 05/26/17 at 15:00 Oxycodone/ Acetaminophen (Percocet 5-325 Mg) 1 tab Q4H PRN PO PAIN GREATER THAN 5 Last administered on 05/29/17 12:30; Start 05/26/17 at 22:00 Ketorolac Tromethamine (Toradol Inj) 15 mg ONCE ONCE IV PUSH Last administered on 05/29/17 06:09; Start 05/29/17 at 06:00; Stop 05/29/17 at 06:01 ; Status DC Urinary Catheter: No Vascular Central Line Catheter: No A/P Assessment and Plan In summary, this is a 37-year-old female with past medical history of endometriosis presents to the emergency department with a 6 day history of generalized malaise, extreme abdominal pain nausea and vomiting. Patient is septic and bacteremic secondary to UTI/pyelonephritis. She has been slowly improving with IV antibiotics. Infectious disease did not clear for discharge at Sepsis secondary to UTI/pyelonephritis/Bacteremia: Urine growing Escherichia coli. Patient earlier had complaints concerning for meningitis. S/P LP CSF neg. - Appreciate ID following -Azactam discontinued per ID. Continue Cipro. -ID will follow up tomorrow for further recommendations. Severe abdominal pain CT of the abdomen/pelvis significant for hepatosplenomegaly and gallbladder wall thickening. Ultrasound of the gallbladder also showed nonspecific thickening. - Continue with pain control. Discontinue IV Dilaudid. Switched to by mouth pain medications Marked leukocytosis: -Secondary to Pyelonephritis. - Patient evaluated by Hematology. No apparent bone marrow disorder -Leukocytosis remains stable A.m. labs Discharge Planning Pending clearance by infectious disease Angel Montgomery DO May 29, 2017 16:05
[2017-05-29] MEDS: ZOLPIDEM TARTRATE 5 MG TAB PO PRN (20:33)
[2017-05-30 00:42] VITALS: BP 130/72; PULSE 67; RESP 18; TEMP 98.2; O2SAT 98
[2017-05-30] MEDS: oxyCODONE/ACETAMINOPHEN 5 MG/325 MG TAB PO PRN ×3 (00:44→08:42)
[2017-05-30] MEDS: D5-NS + KCL 20 MEQ INJ 1,000 ML IV SCH ×2 (00:46→10:38)
[2017-05-30] MEDS: CIPROFLOXACIN 400 MG PREMIX 200 ML IV SCH (04:48)
[2017-05-30 05:10] VITALS: BP 119/63; PULSE 79; RESP 18; TEMP 97.1; O2SAT 96
[2017-05-30 07:41] LABS: AUTOMATED NEUTROPHIL # 10.4 TH/MM3 (1.8-7.7); BASOPHIL # 0.1 TH/MM3 (0-0.2); BASOPHIL % 0.7 % (0.0-2.0); EOSINOPHIL # 0.4 TH/MM3 (0-0.4); EOSINOPHIL % 2.4 % (0.0-4.0); HEMATOCRIT 27.8 % (35.0-46.0); HEMOGLOBIN 10.1 GM/DL (11.6-15.3); LYMPH % 22.1 % (9.0-44.0); LYMPHOCYTE # 3.4 TH/MM3 (1.0-4.8); MEAN CELL VOLUME 90.1 FL (80.0-100.0); MEAN CORPUSCULAR HEMOGLOBIN 32.7 PG (27.0-34.0); MEAN PLATELET VOLUME 6.3 FL (7.0-11.0); MONOCYTE # 0.9 TH/MM3 (0-0.9); NEUT % 68.8 % (16.0-70.0); PLATELET COUNT 513 TH/MM3 (150-450); RED BLOOD COUNT 3.08 MIL/MM3 (4.00-5.30); RED CELL DISTRIBUTION WIDTH 13.4 % (11.6-17.2); WHITE BLOOD COUNT 15.2 TH/MM3 (4.0-11.0)
[2017-05-30 07:46] LABS: MEAN CORPUSCULAR HGB CONC 36.3 % (32.0-36.0)
[2017-05-30 07:51] VITALS: BP 130/68; PULSE 60; RESP 20; TEMP 96.9; O2SAT 97
[2017-05-30 08:03] LABS: ALBUMIN 1.9 GM/DL (3.4-5.0); ALT (GPT) 26 U/L (10-53); AST (GOT) 26 U/L (15-37); BICARBONATE 24.9 MEQ/L (21.0-32.0); BLOOD UREA NITROGEN 8 MG/DL (7-18); CHLORIDE 110 MEQ/L (98-107); CREATININE 0.76 MG/DL (0.50-1.00); GLOMERULAR FILTRATION RATE 87 ML/MIN (>89); GLUCOSE,RANDOM 96 MG/DL (74-106); MAGNESIUM 2.1 MG/DL (1.5-2.5); SODIUM (NA) 142 MEQ/L (136-145)
[2017-05-30 08:12] LABS: ALKALINE PHOSPHATASE 246 U/L (45-117); PHOSPHORUS 3.1 MG/DL (2.5-4.9); TOTAL BILIRUBIN ADULT 0.4 MG/DL (0.2-1.0); TOTAL PROTEIN 5.9 GM/DL (6.4-8.2)
[2017-05-30 08:35] VITALS: PULSE 60
[2017-05-30] MEDS: DOCUSATE SODIUM 50 MG/SENNA 8.6 MG TAB PO SCH (08:41)
[2017-05-30] MEDS: SODIUM CHLORIDE 0.9% FLUSH 10 ML FLUSH IV FLUSH SCH (08:41)
[2017-05-30] MEDS: NYSTAT/DIPHENHY/LIDO MOUTHWASH (Adult) 120ML SWISH-SWAL SCH ×2 (08:42→12:51)
[2017-05-30 08:53] LABS: BANDS 8 % (0-6); LYMPHOCYTES 11 % (9-44); METAMYELOCYTES 5 % (0-1); MONOCYTES 8 % (0-8); MYELOCYTES 1 % (0-0); NEUTROPHIL # MANUAL DIFF 11.9 TH/MM3 (1.8-7.7); POLYS (SEG NEUTROPHILS) 64 % (16-70)
--- NOTE | 2017-05-30 11:08 | HHI.IDPN ---
Note Infectious Disease Note Patient has minimal pain in the right flank. Feels much better. Afebrile. No nausea. PAST MEDICAL HISTORY 1. Endometriosis. 2. Appendectomy. 3. Bowel resection. 4. x3. ALLERGIES PENICILLIN CAUSED THE PATIENT TO BECOME HYPER. CODEINE. PROMETHAZINE. ANTIBIOTICS: Ciprofloxacin. OBJECTIVE: Vital Signs Date Time Temp Pulse Resp B/P (MAP) Pulse Ox O2 Delivery O2 Flow Rate FiO2 05/30/17 08:35 60 05/30/17 07:51 96.9 60 20 130/68 (88) 97 05/30/17 05:10 97.1 79 18 119/63 (81) 96 05/30/17 00:42 98.2 67 18 130/72 (91) 98 05/29/17 22:00 70 05/29/17 20:49 97.3 78 20 117/71 (86) 97 05/29/17 16:00 97.8 73 17 116/62 (80) 98 05/29/17 12:00 96.4 57 17 125/69 (87) 96 Laboratory Tests Test 05/29/17 07:00 05/30/17 06:33 White Blood Count 17.2 TH/MM3 15.2 TH/MM3 Red Blood Count 3.24 MIL/MM3 3.08 MIL/MM3 Hemoglobin 9.8 GM/DL 10.1 GM/DL Hematocrit 29.1 % 27.8 % Mean Corpuscular Volume 89.6 FL 90.1 FL Mean Corpuscular Hemoglobin 30.4 PG 32.7 PG Mean Corpuscular Hemoglobin Concent 33.9 % 36.3 % Red Cell Distribution Width 13.6 % 13.4 % Platelet Count 440 TH/MM3 513 TH/MM3 Mean Platelet Volume 6.3 FL 6.3 FL Neutrophils (%) (Auto) 68.8 % Lymphocytes (%) (Auto) 22.1 % Monocytes (%) (Auto) 6.0 % Eosinophils (%) (Auto) 2.4 % Basophils (%) (Auto) 0.7 % Neutrophils # (Auto) 10.4 TH/MM3 Lymphocytes # (Auto) 3.4 TH/MM3 Monocytes # (Auto) 0.9 TH/MM3 Eosinophils # (Auto) 0.4 TH/MM3 Basophils # (Auto) 0.1 TH/MM3 CBC Comment AUTO DIFF Differential Total Cells Counted 100 Neutrophils % (Manual) 64 % Band Neutrophils % 8 % Lymphocytes % 11 % Monocytes % 8 % Eosinophils % 3 % Neutrophils # (Manual) 11.9 TH/MM3 Metamyelocytes 5 % Myelocytes 1 % Differential Comment FINAL DIFF MANUAL Platelet Estimate HIGH Platelet Morphology Comment NORMAL Red Cell Morphology Comment NORMAL Laboratory Tests Test 05/30/17 06:33 Blood Urea Nitrogen 8 MG/DL Creatinine 0.76 MG/DL Random Glucose 96 MG/DL Total Protein 5.9 GM/DL Albumin 1.9 GM/DL Calcium Level 8.0 MG/DL Phosphorus Level 3.1 MG/DL Magnesium Level 2.1 MG/DL Alkaline Phosphatase 246 U/L Aspartate Amino Transf (AST/SGOT) 26 U/L Alanine Aminotransferase (ALT/SGPT) 26 U/L Total Bilirubin 0.4 MG/DL Sodium Level 142 MEQ/L Potassium Level 3.6 MEQ/L Chloride Level 110 MEQ/L Carbon Dioxide Level 24.9 MEQ/L Anion Gap 7 MEQ/L Estimat Glomerular Filtration Rate 87 ML/MIN Free Thyroxine 1.30 NG/DL Thyroid Stimulating Hormone 3rd Gen 2.630 uIU/ML Microbiology Date/Time Source Procedure Growth Status 05/24/17 23:00 Blood Peripheral Aerobic Blood Culture - Preliminary NO GROWTH IN 1 DAY Resulted 05/24/17 23:00 Anaerobic Blood Culture - Preliminary Gram Negative Kahlil Resulted 05/24/17 23:00 Blood Peripheral Aerobic Blood Culture - Preliminary NO GROWTH IN 1 DAY Resulted 05/24/17 23:00 Anaerobic Blood Culture - Preliminary Gram Negative Kahlil Resulted 05/25/17 13:33 Cerebral Spinal Fluid Lumbar Puncture Gram Stain - Final Resulted 05/25/17 13:33 Cerebral Spinal Fluid Lumbar Puncture CSF Culture - Preliminary NO GROWTH IN 24 HOURS. Resulted 05/24/17 22:07 Throat Group A Streptococcus Screen - Final NO GP A BETA STREP ISOLATED. Complete 05/24/17 22:07 Nasal Aspirate Influenza Types A,B Antigen ([facility]) - Final NEGATIVE FOR FLU A AND B ANTIGEN.... Complete 05/24/17 22:07 Throat Group A Streptococcus Screen ([facility]) - Final Complete 05/25/17 01:30 Urine Clean Catch Urine Culture - Preliminary Gram Negative Kahlil Resulted IMAGING: Renal Ultrasound 05/29/17 0000 Signed Impressions: Service Date/Time: Monday, May 29, 2017 13:10 - CONCLUSION: 1. No evidence for obstructive uropathy or renal stones. 2. Note that appears to the right kidney on recent CT examination is concerning for pyelonephritis. Neftali Almonte MD Lumbar Puncture Fluoroscopy 05/25/17 0000 Signed Impressions: Service Date/Time: May 13:39 - CONCLUSION: Uncomplicated fluoroscopically guided lumbar puncture. Otilio Lozano MD Gall Bladder Ultrasound 05/25/17 0000 Signed Impressions: Service Date/Time: May 00:56 - CONCLUSION: Hepatomegaly. Mild nonspecific gallbladder wall thickening. Tyrel Norris MD Cholangiopancreatography MRI 05/25/17 0000 Signed Impressions: Service Date/Time: May 08:51 - CONCLUSION: 1. Hepatosplenomegaly. 2. The gallbladder is grossly unremarkable. No biliary tract obstruction. 3. Abnormal appearance of the right kidney. Multiple wedge shaped defects are seen throughout the renal parenchyma of the entire right kidney. The appearance suggests multiple parenchymal infarcts with mild diffuse enlargement of the right kidney. No hydronephrosis or perinephric edema. Daniel Jonas MD Chest X-Ray 05/25/17 0000 Signed Impressions: Service Date/Time: May 14:18 - CONCLUSION: No acute cardiopulmonary disease. Otilio Lozano MD Abdomen/Pelvis CT [id number] Signed Impressions: Service Date/Time: Wednesday, May 24, 2017 23:24 - CONCLUSION: Hepatosplenomegaly with mild periportal edema and gallbladder wall thickening, these findings new since previous exam. Appearance of the right kidney worrisome for pyelonephritis. Right ovarian cyst Tyrel Norris MD PHYSICAL EXAMINATION GENERAL: No acute distress. HEENT: No icterus. Oropharynx moist mucosa. No visible lesions. NECK: Supple. LUNGS: Clear to auscultation. HEART: Regular, S1 and S2 without audible murmurs, rubs or gallops. ABDOMEN: Distended, soft. Minimal R. flank tenderness. EXTREMITIES: No clubbing or cyanosis or edema. SKIN: No rash. NEURO: No gross focal findings. PSYCHIATRIC: Calm and cooperative. IMPRESSION 1. Sepsis. E. coli. improved. 2. Acute pyelonephritis. Improved. 3. Acute kidney disease. Improving. 4. UTI e. coli. 5. Leukocytosis. RECOMMENDATIONS Okay to discharge on PO ciprofloxacin 750 PO bid x 10 days. D/W Dr Montgomery. Ajay Lambert MD May 30, 2017 11:08
[2017-05-30 12:00] VITALS: BP 119/72; PULSE 63; RESP 20; TEMP 96.9; O2SAT 95
--- NOTE | 2017-05-30 13:18 | HHI.PR ---
Subjective Remarks Patient has been seen by infectious disease. He wishes for her to stay on IV antibiotics today for HER LEUKOCYTOSIS PATIENT REMAINS ON CIPRO AM LABS DW RN AND PT AND FAMILY AND CM 11-7 PAIN BETTER CLEARED BY ID DC ON CIPRO 750MG PO BID FOR 10 DAYS DC TO HOME FOLLOW UP WITH PCP Objective Vitals Vital Signs Date Time Temp Pulse Resp B/P (MAP) Pulse Ox O2 Delivery O2 Flow Rate FiO2 05/30/17 12:00 96.9 63 20 119/72 (88) 95 05/30/17 08:35 60 05/30/17 07:51 96.9 60 20 130/68 (88) 97 05/30/17 05:10 97.1 79 18 119/63 (81) 96 05/30/17 00:42 98.2 67 18 130/72 (91) 98 05/29/17 22:00 70 05/29/17 20:49 97.3 78 20 117/71 (86) 97 05/29/17 16:00 97.8 73 17 116/62 (80) 98 I/O 05/29/17 05/29/17 05/29/17 05/30/17 05/30/17 05/30/17 07:00 15:00 23:00 07:00 15:00 23:00 Intake Total 2065 ml 1311 ml 1980 ml 2165 ml Balance 2065 ml 1311 ml 1980 ml 2165 ml Intake Oral 240 ml 1311 ml 780 ml 120 ml IV Total 1825 ml 1200 ml 1845 ml Other 200 ml # Voids 2 6 3 # Bowel Movements 1 Result Diagram: 05/30/17 0633 05/30/17 0633 Other Results Laboratory Tests Test 05/27/17 16:57 05/28/17 04:41 05/29/17 07:00 05/30/17 06:33 White Blood Count 17.4 TH/MM3 15.3 TH/MM3 17.2 TH/MM3 15.2 TH/MM3 Red Blood Count 3.11 MIL/MM3 3.25 MIL/MM3 3.24 MIL/MM3 3.08 MIL/MM3 Hemoglobin 9.5 GM/DL 9.8 GM/DL 9.8 GM/DL 10.1 GM/DL Hematocrit 28.1 % 29.6 % 29.1 % 27.8 % Mean Corpuscular Volume 90.4 FL 91.3 FL 89.6 FL 90.1 FL Mean Corpuscular Hemoglobin 30.7 PG 30.2 PG 30.4 PG 32.7 PG Mean Corpuscular Hemoglobin Concent 34.0 % 33.1 % 33.9 % 36.3 % Red Cell Distribution Width 13.9 % 13.6 % 13.6 % 13.4 % Platelet Count 364 TH/MM3 373 TH/MM3 440 TH/MM3 513 TH/MM3 Mean Platelet Volume 6.3 FL 6.1 FL 6.3 FL 6.3 FL Neutrophils (%) (Auto) 74.3 % 68.8 % Lymphocytes (%) (Auto) 13.8 % 22.1 % Monocytes (%) (Auto) 10.4 % 6.0 % Eosinophils (%) (Auto) 1.0 % 2.4 % Basophils (%) (Auto) 0.5 % 0.7 % Neutrophils # (Auto) 12.9 TH/MM3 10.4 TH/MM3 Lymphocytes # (Auto) 2.4 TH/MM3 3.4 TH/MM3 Monocytes # (Auto) 1.8 TH/MM3 0.9 TH/MM3 Eosinophils # (Auto) 0.2 TH/MM3 0.4 TH/MM3 Basophils # (Auto) 0.1 TH/MM3 0.1 TH/MM3 CBC Comment AUTO DIFF AUTO DIFF Differential Comment AUTO DIFF CONFIRMED FINAL DIFF MANUAL Platelet Estimate NORMAL HIGH Platelet Morphology Comment NORMAL NORMAL Red Cell Morphology Comment NORMAL NORMAL Blood Urea Nitrogen 12 MG/DL 10 MG/DL 8 MG/DL Creatinine 0.83 MG/DL 0.81 MG/DL 0.76 MG/DL Random Glucose 89 MG/DL 90 MG/DL 96 MG/DL Calcium Level 8.2 MG/DL 8.1 MG/DL 8.0 MG/DL Sodium Level 140 MEQ/L 140 MEQ/L 142 MEQ/L Potassium Level 3.4 MEQ/L 3.5 MEQ/L 3.6 MEQ/L Chloride Level 109 MEQ/L 107 MEQ/L 110 MEQ/L Carbon Dioxide Level 24.1 MEQ/L 21.7 MEQ/L 24.9 MEQ/L Anion Gap 7 MEQ/L 11 MEQ/L 7 MEQ/L Estimat Glomerular Filtration Rate 78 ML/MIN 80 ML/MIN 87 ML/MIN Differential Total Cells Counted 100 Neutrophils % (Manual) 64 % Band Neutrophils % 8 % Lymphocytes % 11 % Monocytes % 8 % Eosinophils % 3 % Neutrophils # (Manual) 11.9 TH/MM3 Metamyelocytes 5 % Myelocytes 1 % Total Protein 5.9 GM/DL Albumin 1.9 GM/DL Phosphorus Level 3.1 MG/DL Magnesium Level 2.1 MG/DL Alkaline Phosphatase 246 U/L Aspartate Amino Transf (AST/SGOT) 26 U/L Alanine Aminotransferase (ALT/SGPT) 26 U/L Total Bilirubin 0.4 MG/DL Free Thyroxine 1.30 NG/DL Thyroid Stimulating Hormone 3rd Gen 2.630 uIU/ML Imaging Last Impressions Renal Ultrasound 05/29/17 0000 Signed Impressions: Service Date/Time: Monday, May 29, 2017 13:10 - CONCLUSION: 1. No evidence for obstructive uropathy or renal stones. 2. Note that appears to the right kidney on recent CT examination is concerning for pyelonephritis. Neftali Almonte MD Lumbar Puncture Fluoroscopy 05/25/17 0000 Signed Impressions: Service Date/Time: May 13:39 - CONCLUSION: Uncomplicated fluoroscopically guided lumbar puncture. Otilio Lozano MD Gall Bladder Ultrasound 05/25/17 0000 Signed Impressions: Service Date/Time: May 00:56 - CONCLUSION: Hepatomegaly. Mild nonspecific gallbladder wall thickening. Tyrel Norris MD Cholangiopancreatography MRI 05/25/17 0000 Signed Impressions: Service Date/Time: May 08:51 - CONCLUSION: 1. Hepatosplenomegaly. 2. The gallbladder is grossly unremarkable. No biliary tract obstruction. 3. Abnormal appearance of the right kidney. Multiple wedge shaped defects are seen throughout the renal parenchyma of the entire right kidney. The appearance suggests multiple parenchymal infarcts with mild diffuse enlargement of the right kidney. No hydronephrosis or perinephric edema. Daniel Jonas MD Chest X-Ray 05/25/17 0000 Signed Impressions: Service Date/Time: May 14:18 - CONCLUSION: No acute cardiopulmonary disease. Otliio Lozano MD Abdomen/Pelvis CT 05/24/17 3770 Signed Impressions: Service Date/Time: Wednesday, May 24, 2017 23:24 - CONCLUSION: Hepatosplenomegaly with mild periportal edema and gallbladder wall thickening, these findings new since previous exam. Appearance of the right kidney worrisome for pyelonephritis. Right ovarian cyst Tyrel Norris MD Objective Remarks GENERAL: Awake alert oriented talkative and cooperative SKIN: Warm and dry. HEAD: Atraumatic. Normocephalic. EYES: Pupils equal and round. No scleral icterus. No injection or drainage. Extraocular muscles intact ENT: No nasal bleeding or discharge. Mucous membranes pink and moist. Tongue is midline NECK: Trachea midline. No JVD. Neck is supple CARDIOVASCULAR: Regular rate and rhythm. S1 and S2 no S3-S4 no heave or thrill or rub or gallop RESPIRATORY: No accessory muscle use. Clear to auscultation. Breath sounds equal bilaterally. GASTROINTESTINAL: Abdomen soft, non-tender, nondistended. Hepatic and splenic margins not palpable. MUSCULOSKELETAL: Extremities without clubbing, cyanosis, or edema. No obvious deformities. NEUROLOGICAL: Awake and alert. No obvious cranial nerve deficits. Motor grossly within normal limits. Five out of 5 muscle strength in the arms and legs. Normal speech. PSYCHIATRIC: Appropriate mood and affect; insight and judgment normal. Right CVA tenderness Procedures Post Procedure Progress Note Pre Procedure Diagnosis: (1) Meningitis Post Procedure Diagnosis: (1) Meningitis Procedure Date: May 25, 2017 Supervising Radiologist: Otilio Lozano Proceduralist/Assist: Katherine Forbes RT(R), RT Pavel(R) Anesthesia: Local Plan of Activity Patient to Unit: Nursing Unit Patient Condition: Good See PACS Report for procedural detail/treatment Spinal Procedure Lumbar Puncture L2-L3 Fluid Removal (CCs): 8 Fluid Description: Otilio Phillips MD May 25, 2017 13:41 <Electronically signed by Otilio Lozano MD> 05/25/17 1341 Medications and IVs Current Medications Sodium Chloride (NS Flush) 2 ml UNSCH PRN IV FLUSH FLUSH AFTER USING IV ACCESS ; Start 05/24/17 at 21:45; Stop 05/25/17 at 02:54; Status DC Sodium Chloride 1,000 ml @ 999 mls/hr BOLUS ONCE IV Last administered on 05/24 22:22; Start 05/24/17 at 21:45; Stop 05/24/17 at 22:45; Status DC Morphine Sulfate (Morphine Inj) 6 mg ONCE ONCE IV PUSH Last administered on 22:23; Start 05/24/17 at 22:00; Stop 05/24/17 at 22:01; Status DC Ondansetron HCl (Zofran Inj) 4 mg ONCE ONCE IV PUSH Last administered on 22:24; Start 05/24/17 at 22:00; Stop 05/24/17 at 22:01; Status DC Sodium Chloride 1,000 ml @ 999 mls/hr BOLUS ONCE IV Last administered on 05/24 23:08; Start 05/24/17 at 22:45; Stop 05/24/17 at 23:45; Status DC Iohexol (Omnipaque 350 Inj) 96 ml STK-MED ONCE IVCONTRAST Last administered on 05/24/17 23:29; Start 05/24/17 at 23:29; Stop 05/24/17 at 23:30; Status DC Vancomycin HCl 1000 mg/Sodium Chloride 250 ml @ 250 mls/hr ONCE ONCE IV Last administered on 05/25/17 00:32; Start 05/25/17 at 00:00; Stop 05/25/17 at 00:59 ; Status DC Aztreonam 2000 mg/ Sodium Chloride 100 ml @ 200 mls/hr ONCE ONCE IV Last administered on 05/25/17 02:13; Start 05/25/17 at 00:00; Stop 05/25/17 at 00:29 ; Status DC Morphine Sulfate (Morphine Inj) 4 mg ONCE ONCE IV PUSH Last administered on 00:32; Start 05/25/17 at 00:15; Stop 05/25/17 at 00:16; Status DC Sodium Chloride (NS Flush) 2 ml UNSCH PRN IV FLUSH FLUSH AFTER USING IV ACCESS ; Start 05/25/17 at 01:30; Stop 05/25/17 at 03:22; Status DC Sodium Chloride (NS Flush) 2 ml BID IV FLUSH ; Start 05/25/17 at 09:00; Stop at 09:00; Status DC Acetaminophen (Tylenol) 650 mg Q4H PRN PO TEMP > 100.4; Start 05/25/17 at 01:30 ; Stop 05/25/17 at 03:22; Status DC Ondansetron HCl (Zofran Inj) 4 mg Q6H PRN IVP NAUSEA OR VOMITING; Start at 01:30; Stop 05/25/17 at 03:22; Status DC Naloxone HCl (Narcan Inj) 0.4 mg UNSCH PRN IV PUSH SEE LABEL COMMENTS; Start 05/25/17 at 01:30; Stop 05/25/17 at 03:22; Status DC Dextrose/Sodium Chloride 1,000 ml @ 100 mls/hr Q10H IV Last administered on 02:13; Start 05/25/17 at 02:00; Stop 05/25/17 at 03:22; Status DC Pneumococcal Polyvalent Vaccine (Pneumovax-23 Inj) 25 mcg ONCE ONCE IM ; Start 05/26/17 at 10:00; Stop 05/26/17 at 10:03; Status DC Influenza Virus Vaccine (Flu (Quadrivalent) Vaccine Inj) 0.5 ml ONCE ONCE IM ; Start 05/26/17 at 10:00; Stop 05/26/17 at 10:03; Status DC Sodium Chloride 1,000 ml @ 100 mls/hr Q10H IV Last administered on 05/25/17 11:14; Start 05/25/17 at 03:05; Stop 05/25/17 at 19:01; Status DC Sodium Chloride (NS Flush) 2 ml UNSCH PRN IV FLUSH FLUSH AFTER USING IV ACCESS ; Start 05/25/17 at 03:15 Sodium Chloride (NS Flush) 2 ml BID IV FLUSH Last administered on 05/29/17 20: 36; Start 05/25/17 at 09:00 Acetaminophen (Tylenol) 650 mg Q4H PRN PO TEMP > 100.4 Last administered on 08:23; Start 05/25/17 at 03:15; Stop 05/25/17 at 08:58; Status DC Ondansetron HCl (Zofran Inj) 4 mg Q6H PRN IVP NAUSEA OR VOMITING Last administered on 05/28/17 01:29; Start 05/25/17 at 03:15 Zolpidem Tartrate (Ambien) 5 mg HS PRN PO INSOMNIA Last administered on 20:33; Start 05/25/17 at 03:15 Naloxone HCl (Narcan Inj) 0.4 mg UNSCH PRN IV PUSH SEE LABEL COMMENTS; Start 05/25/17 at 03:15 Senna/Docusate Sodium (Rachelle-Colace) 1 tab BID PO Last administered on 08:41; Start 05/25/17 at 09:00 Magnesium Hydroxide (Milk Of Magnesia Liq) 30 ml Q12H PRN PO Mild constipation ; Start 05/25/17 at 03:15 Sennosides (Senokot) 17.2 mg Q12H PRN PO Moderate constipation; Start 05/25/17 at 03:15 Bisacodyl (Dulcolax Supp) 10 mg DAILY PRN RECTAL SEVERE CONSITIPATION; Start 05/25/17 at 03:15 Lactulose (Lactulose Liq) 30 ml DAILY PRN PO SEVERE CONSITIPATION; Start at 03:15 Hydromorphone HCl (Dilaudid Pf Inj) 0.5 mg Q4H PRN IV PUSH BREAKTHROUGH PAIN Last administered on 05/28/17 10:47; Start 05/25/17 at 03:15; Stop 05/28/17 at 15:01; Status DC Fluconazole (Diflucan) 200 mg DAILY PO Last administered on 05/26/17 08:14; Start 05/25/17 at 09:00; Stop 05/26/17 at 14:26; Status DC Multi-Ingredient Mouthwash/Gargle (Magic Mouthwash Adult Liq) 10 ml QID SWISH- SWAL Last administered on 05/25/17 14:02; Start 05/25/17 at 09:00 Pharmacy Profile Note 0 ml @ 0 mls/hr UNSCH OTHER ; Start 05/25/17 at 03:30; Stop 05/26/17 at 14:26; Status DC Vancomycin HCl 1000 mg/Sodium Chloride 250 ml @ 250 mls/hr Q12H IV ; Start 05/25/17 at 12:00; Status UNV Aztreonam 2000 mg/ Sodium Chloride 100 ml @ 200 mls/hr Q8H IV Last administered on 05/27/17 16:27; Start 05/25/17 at 10:00; Stop 05/27/17 at 17:16 ; Status DC Sodium Chloride 500 ml @ 500 mls/hr BOLUS ONCE IV Last administered on 06:00; Start 05/25/17 at 06:00; Stop 05/25/17 at 06:59; Status DC Metronidazole 100 ml @ 100 mls/hr Q6H IV Last administered on 05/26/17 08:16 ; Start 05/25/17 at 09:00; Stop 05/26/17 at 14:26; Status DC Acetaminophen (Tylenol) 650 mg Q4H PRN PO FEVER Last administered on 05/25/17 16:28; Start 05/25/17 at 09:00 Sodium Chloride 1,000 ml @ 999 mls/hr BOLUS ONCE IV Last administered on 05/25 09:37; Start 05/25/17 at 09:00; Stop 05/25/17 at 10:00; Status DC Vancomycin HCl 1500 mg/Sodium Chloride 515 ml @ 257.5 mls/ hr Q24H IV Last administered on 05/25/17 23:33; Start 05/25/17 at 23:00; Stop 05/26/17 at 14:26 ; Status DC Miscellaneous Information SPECIFIC LAB TO BE DRAWN:VANCO TROUGH DATE TO BE DR... ONCE ONCE .XX ; Start 05/27/17 at 22:45; Stop 05/27/17 at 22:45; Status DC Potassium Chloride/Dextrose/ Sod Cl 1,000 ml @ 125 mls/hr Q8H IV Last administered on 05/30/17 10:38; Start 05/25/17 at 18:45 Sodium Chloride 1,000 ml @ 999 mls/hr BOLUS ONCE IV Last administered on 05/25 20:36; Start 05/25/17 at 18:45; Stop 05/25/17 at 19:45; Status DC Sodium Bicarbonate (Sodium Bicarbonate) 650 mg ONCE ONCE PO Last administered on 05/25/17 20:30; Start 05/25/17 at 18:45; Stop 05/25/17 at 19:00; Status DC Potassium Chloride (KCl) 30 meq ONCE ONCE PO Last administered on 05/26/17 10 :17; Start 05/26/17 at 09:30; Stop 05/26/17 at 10:12; Status DC Ciprofloxacin/ Dextrose 200 ml @ 200 mls/hr Q12H IV Last administered on 04:48; Start 05/26/17 at 15:00 Oxycodone/ Acetaminophen (Percocet 5-325 Mg) 1 tab Q4H PRN PO PAIN GREATER THAN 5 Last administered on 05/29/17 12:30; Start 05/26/17 at 22:00; Stop 05/29 at 16:07; Status DC Ketorolac Tromethamine (Toradol Inj) 15 mg ONCE ONCE IV PUSH Last administered on 05/29/17 06:09; Start 05/29/17 at 06:00; Stop 05/29/17 at 06:01 ; Status DC Oxycodone/ Acetaminophen (Percocet 5-325 Mg) 2 tab Q4H PRN PO PAIN GREATER THAN 5 Last administered on 05/30/17 08:42; Start 05/29/17 at 18:00 Urinary Catheter: No Vascular Central Line Catheter: No A/P Problem List: (1) Pyelonephritis ICD Code: N12 - Tubulo-interstitial nephritis, not specified as acute or chronic (2) Sepsis ICD Code: A41.9 - Sepsis, unspecified organism (3) Normocytic anemia ICD Code: D64.9 - Anemia, unspecified (4) Leukocytosis ICD Code: D72.829 - Elevated white blood cell count, unspecified (5) Abdominal pain ICD Code: R10.9 - Unspecified abdominal pain Status: Acute (6) Endometriosis ICD Code: N80.9 - Endometriosis, unspecified Status: Acute Assessment and Plan In summary, this is a 37-year-old female with past medical history of endometriosis presents to the emergency department with a 6 day history of generalized malaise, extreme abdominal pain nausea and vomiting. Patient is septic and bacteremic secondary to UTI/pyelonephritis. She has been slowly improving with IV antibiotics. Infectious disease did not clear for discharge at Sepsis secondary to UTI/pyelonephritis/Bacteremia: Urine growing Escherichia coli. Patient earlier had complaints concerning for meningitis. S/P LP CSF neg. - Appreciate ID following -Azactam discontinued per ID. Continue Cipro. -ID will follow up tomorrow for further recommendations. SWITCHED TO CIPRO 750 MG BID Severe abdominal pain CT of the abdomen/pelvis significant for hepatosplenomegaly and gallbladder wall thickening. Ultrasound of the gallbladder also showed nonspecific thickening. - Continue with pain control. Discontinue IV Dilaudid. Switched to by mouth pain medications Marked leukocytosis: -Secondary to Pyelonephritis. - Patient evaluated by Hematology. No apparent bone marrow disorder -Leukocytosis remains stable A.m. labs CLEARED BY ALL FOR DC Discharge Planning CLEARED BY infectious disease Problem Qualifiers (1) Abdominal pain: Qualified Codes: R10.13 - Epigastric pain Angel Montgomery DO May 30, 2017 13:18
[2017-05-30] MEDS ORDERED: OXYC1TAB63 PO (13:21)
[2017-05-30] MEDS ORDERED: CIPR250T52 PO (13:21)
--- NOTE | 2017-05-30 13:24 | HHI.DS ---
Discharge Summary Admission Date May 25, 2017 at 00:25 Discharge Date: May 30, 2017 Admitting Diagnosis Sepsis, acute kidney injury, gallbladder wall thickening (1) Pyelonephritis ICD Code: N12 - Tubulo-interstitial nephritis, not specified as acute or chronic Diagnosis: Principal (2) Sepsis ICD Code: A41.9 - Sepsis, unspecified organism Diagnosis: Principal (3) Normocytic anemia ICD Code: D64.9 - Anemia, unspecified Diagnosis: Secondary (4) Leukocytosis ICD Code: D72.829 - Elevated white blood cell count, unspecified Diagnosis: Principal (5) Abdominal pain ICD Code: R10.9 - Unspecified abdominal pain Diagnosis: Principal Status: Acute (6) Endometriosis ICD Code: N80.9 - Endometriosis, unspecified Diagnosis: Secondary Status: Acute Procedures Post Procedure Progress Note Pre Procedure Diagnosis: (1) Meningitis Post Procedure Diagnosis: (1) Meningitis Procedure Date: May 25, 2017 Supervising Radiologist: Otilio Lozano Proceduralist/Assist: RT Hammad(R), RT Pavel(R) Anesthesia: Local Plan of Activity Patient to Unit: Nursing Unit Patient Condition: Good See PACS Report for procedural detail/treatment Spinal Procedure Lumbar Puncture L2-L3 Fluid Removal (CCs): 8 Fluid Description: Otilio Phillips MD May 25, 2017 13:41 <Electronically signed by Otilio Lozano MD> 05/25/17 1341 Brief History - From Admission 37-year-old female with past medical history significant for endometriosis presents with a six-day history of generalized malaise, sore throat, dry mouth and nausea/vomiting with severe abdominal pain. The patient also states that her tongue has been covered in white and that she has been having difficulty swallowing. The patient has severe upper epigastric pain that is exquisitely tender to palpation. Patient was previously diagnosed with nonalcoholic fatty liver disease in 2006. Her CT of the abdomen and pelvis was significant for hepatosplenomegaly with periportal edema and nonspecific gallbladder wall thickening. Alkaline phosphatase is elevated, AST/ALT within normal limits. Ultrasound of the gallbladder revealed nonspecific gallbladder wall thickening. Her white blood cell count is 43.3. She is afebrile and denies fever/chills. Is tachycardic in the 130s. Lactic acid 1.6. T bili 2.0. CBC/BMP: 05/30/17 0633 05/30/17 0633 Significant Findings Laboratory Tests Test 05/27/17 16:57 05/28/17 04:41 05/29/17 07:00 05/30/17 06:33 White Blood Count 17.4 TH/MM3 (4.0-11.0) 15.3 TH/MM3 (4.0-11.0) 17.2 TH/MM3 (4.0-11.0) 15.2 TH/MM3 (4.0-11.0) Red Blood Count 3.11 MIL/MM3 (4.00-5.30) 3.25 MIL/MM3 (4.00-5.30) 3.24 MIL/MM3 (4.00-5.30) 3.08 MIL/MM3 (4.00-5.30) Hemoglobin 9.5 GM/DL (11.6-15.3) 9.8 GM/DL (11.6-15.3) 9.8 GM/DL (11.6-15.3) 10.1 GM/DL (11.6-15.3) Hematocrit 28.1 % (35.0-46.0) 29.6 % (35.0-46.0) 29.1 % (35.0-46.0) 27.8 % (35.0-46.0) Mean Platelet Volume 6.3 FL (7.0-11.0) 6.1 FL (7.0-11.0) 6.3 FL (7.0-11.0) 6.3 FL (7.0-11.0) Neutrophils (%) (Auto) 74.3 % (16.0-70.0) Monocytes (%) (Auto) 10.4 % (0.0-8.0) Neutrophils # (Auto) 12.9 TH/MM3 (1.8-7.7) 10.4 TH/MM3 (1.8-7.7) Monocytes # (Auto) 1.8 TH/MM3 (0-0.9) Calcium Level 8.2 MG/DL (8.5-10.1) 8.1 MG/DL (8.5-10.1) 8.0 MG/DL (8.5-10.1) Potassium Level 3.4 MEQ/L (3.5-5.1) Chloride Level 109 MEQ/L (98-107) 110 MEQ/L (98-107) Estimat Glomerular Filtration Rate 78 ML/MIN (>89) 80 ML/MIN (>89) 87 ML/MIN (>89) Mean Corpuscular Hemoglobin Concent 36.3 % (32.0-36.0) Platelet Count 513 TH/MM3 (150-450) Band Neutrophils % 8 % (0-6) Neutrophils # (Manual) 11.9 TH/MM3 (1.8-7.7) Metamyelocytes 5 % (0-1) Myelocytes 1 % (0-0) Platelet Estimate HIGH (NORMAL) Total Protein 5.9 GM/DL (6.4-8.2) Albumin 1.9 GM/DL (3.4-5.0) Alkaline Phosphatase 246 U/L (45-117) Imaging Last Impressions Renal Ultrasound 05/29/17 Signed Impressions: Service Date/Time: Monday, May 29, 2017 13:10 - CONCLUSION: 1. No evidence for obstructive uropathy or renal stones. 2. Note that appears to the right kidney on recent CT examination is concerning for pyelonephritis. Neftali Almonte MD Lumbar Puncture Fluoroscopy 05/25/17 Signed Impressions: Service Date/Time: May 13:39 - CONCLUSION: Uncomplicated fluoroscopically guided lumbar puncture. Otilio Lozano MD Gall Bladder Ultrasound 05/25/17 Signed Impressions: Service Date/Time: May 00:56 - CONCLUSION: Hepatomegaly. Mild nonspecific gallbladder wall thickening. Tyrel Norris MD Cholangiopancreatography MRI 05/25/17 Signed Impressions: Service Date/Time: May 08:51 - CONCLUSION: 1. Hepatosplenomegaly. 2. The gallbladder is grossly unremarkable. No biliary tract obstruction. 3. Abnormal appearance of the right kidney. Multiple wedge shaped defects are seen throughout the renal parenchyma of the entire right kidney. The appearance suggests multiple parenchymal infarcts with mild diffuse enlargement of the right kidney. No hydronephrosis or perinephric edema. Daniel Jonas MD Chest X-Ray 05/25/17 0000 Signed Impressions: Service Date/Time: May 14:18 - CONCLUSION: No acute cardiopulmonary disease. Otilio Lozano MD Abdomen/Pelvis CT 05/24/17 2145 Signed Impressions: Service Date/Time: Wednesday, May 24, 2017 23:24 - CONCLUSION: Hepatosplenomegaly with mild periportal edema and gallbladder wall thickening, these findings new since previous exam. Appearance of the right kidney worrisome for pyelonephritis. Right ovarian cyst Tyrel Norris MD PE at Discharge GENERAL: Awake alert oriented talkative and cooperative SKIN: Warm and dry. HEAD: Atraumatic. Normocephalic. EYES: Pupils equal and round. No scleral icterus. No injection or drainage. Extraocular muscles intact ENT: No nasal bleeding or discharge. Mucous membranes pink and moist. Tongue is midline NECK: Trachea midline. No JVD. Neck is supple CARDIOVASCULAR: Regular rate and rhythm. S1 and S2 no S3-S4 no heave or thrill or rub or gallop RESPIRATORY: No accessory muscle use. Clear to auscultation. Breath sounds equal bilaterally. GASTROINTESTINAL: Abdomen soft, non-tender, nondistended. Hepatic and splenic margins not palpable. MUSCULOSKELETAL: Extremities without clubbing, cyanosis, or edema. No obvious deformities. NEUROLOGICAL: Awake and alert. No obvious cranial nerve deficits. Motor grossly within normal limits. Five out of 5 muscle strength in the arms and legs. Normal speech. PSYCHIATRIC: Appropriate mood and affect; insight and judgment normal. Right CVA tenderness Hospital Course 37-year-old female with past medical history significant for endometriosis presents with a six-day history of generalized malaise, sore throat, dry mouth and nausea/vomiting with severe abdominal pain. The patient also states that her tongue has been covered in white and that she has been having difficulty swallowing. The patient has severe upper epigastric pain that is exquisitely tender to palpation. Patient was previously diagnosed with nonalcoholic fatty liver disease in 2006. Her CT of the abdomen and pelvis was significant for hepatosplenomegaly with periportal edema and nonspecific gallbladder wall thickening. Alkaline phosphatase is elevated, AST/ALT within normal limits. Ultrasound of the gallbladder revealed nonspecific gallbladder wall thickening. Her white blood cell count is 43.3. She is afebrile and denies fever/chills. Is tachycardic in the 130s. Lactic acid 1.6. T bili 2.0. Patient has been seen by infectious disease. He wishes for her to stay on IV antibiotics today for HER LEUKOCYTOSIS PATIENT REMAINS ON CIPRO AM LABS DW RN AND PT AND FAMILY AND CM 11-7 PAIN BETTER CLEARED BY ID DC ON CIPRO 750MG PO BID FOR 10 DAYS DC TO HOME FOLLOW UP WITH PCP Pt Condition on Discharge: Good Discharge Disposition: Discharge Home Discharge Time: <= 30 minutes Discharge Instructions DIET: Follow Instructions for: Heart Healthy Diet Speech Therapy-Diet Recommends: Regular Activities you can perform: Regular-No Restrictions Follow up Referrals: PCP Follow-up - 1 Week New Medications: Ciprofloxacin (Cipro) 250 Mg Tab 750 MG PO BID for Infection for 10 Days, #60 TAB 0 Refills Oxycodone-Acetaminophen (Oxycodone-Acetaminophen) 5-325 mg Tab 2 TAB PO Q4H PRN for PAIN GREATER THAN 5, #40 TAB Continued Medications: Metronidazole Vaginal Gel (Metrogel Vaginal Gel) 0.75 % Gel 1 APPL VAGINAL HS for Infection for 5 Days, TUBE 0 Refills Naproxen Sodium DS (Anaprox DS) 550 Mg Tab 550 MG PO Q12HR PRN for PAIN GREATER THAN 5, #12 TAB 0 Refills Angel Montgomery DO May 30, 2017 13:24
[2017-05-30 16:23] LABS: HEMOGLOBIN A1C 5.5 % (4.3-6.0)
== END 2017-05-30 14:00 | disposition home or self-care (01) | DRG 872 ==
LOC: NEPD 20:29 → NEDA 05-25 00:25 → NEPGCP 05-25 02:10 → N07B 05-25 12:36
PROVIDERS: ADMIT Hospitalist; ATTEND Hospitalist
PROC: 009U3ZX Drainage of Spinal Canal, Percutaneous Approach, Diagnostic (ICD-10-PCS; principal; 2017-05-25)
DX: A41.51 Sepsis due to Escherichia coli [E. coli] (principal); N17.9 Acute kidney failure, unspecified; D68.9 Coagulation defect, unspecified; R16.2 Hepatomegaly with splenomegaly, not elsewhere classified; R13.10 Dysphagia, unspecified; N28.0 Ischemia and infarction of kidney; N10 Acute pyelonephritis; B37.0 Candidal stomatitis; K76.0 Fatty (change of) liver, not elsewhere classified; N80.9 Endometriosis, unspecified; F31.9 Bipolar disorder, unspecified; Z86.61 Personal history of infections of the central nervous system; F17.210 Nicotine dependence, cigarettes, uncomplicated; R00.0 Tachycardia, unspecified; R65.20 Severe sepsis without septic shock; R30.0 Dysuria; N83.201 Unspecified ovarian cyst, right side; K21.9 Gastro-esophageal reflux disease without esophagitis; K29.70 Gastritis, unspecified, without bleeding; R21 Rash and other nonspecific skin eruption; D64.9 Anemia, unspecified; B96.20 Unspecified Escherichia coli [E. coli] as the cause of diseases classified elsewhere; K82.9 Disease of gallbladder, unspecified
CPT/HCPCS: 62270; 71010; 74177; 74181; 76377; 76705; 76775; 76937; 77003; 80048; 80053; 80074; 80076; 81001; 82945; 82948; 83036; 83605; 83690; 83735; 84100; 84157; 84439; 84443; 84484; 84703; 85007; 85025; 85027; 85060; 85610; 85730; 86703; 87040; 87070; 87077; 87081; 87086; 87186; 87205; 87529; 87804; 87880; 89051; 93005; 96365; 96366; 96375; J1170; J0744; J1885; J2270; J2405; J3370; J3480; J7030; J7040; J7050; Q9967